=== PATIENT | female | born 1965 | race Caucasian/White ===

== ENCOUNTER 2022-12-26 20:26 | Outpatient (REF) | payer BC, SELFPAY ==
[2022-12-31 07:08] LABS: Age Gdln ACOG Testing Note (.); HPV Aptima Negative (Negative); IGP, Aptima HPV, rfx 16/18,45 Note (.)
== END 2022-12-26 20:27 | disposition home or self-care (01) ==
LOC: LAB 20:26
PROVIDERS: PCP Family Medicine; Visit Provider Obstetrics & Gynecology
DX: Z12.4 Encounter for screening for malignant neoplasm of cervix (principal); Z11.51 Encounter for screening for human papillomavirus (HPV)
CPT/HCPCS: 87624; G0145

== ENCOUNTER 2023-10-22 12:49 | Outpatient (OUT) | payer BC, SELFPAY ==
--- NOTE | 2023-10-22 12:55 | MM_ITS ---
Patient Name: ESTELA ORTEGA MR#: [id number] : 1965 Exam Date: 10/22/2023 Ordering Doctor: DR Manuel Orellana . RADIOLOGY REPORT PROCEDURE: MM TOMOSYNTHESIS SCREENING BI COMPARISON: MG MAMM SCREEN 3D NONA CAD, 07/13/2022. MG MAMM SCREEN 3D NONA CAD, 06/27/2021. INDICATIONS: Screening Calculator Name NCI Breast Cancer Risk Assessment Tool 5 Year Breast Cancer Risk 0.90% Lifetime Breast Cancer Risk 5.70% Personal Breast Cancer No Personal Ovarian Cancer No Treatments None Family Cancers Grandmother-maternal with breast cancer at age 50. LOCATION: [facility] BREAST COMPOSITION: There are scattered areas of fibroglandular density. FINDINGS: DIAGNOSTIC CATEGORY 1--NEGATIVE. NO CHANGE FROM COMPARISON ASSESSMENT. Scattered benign-appearing calcifications are present. Scattered benign-appearing lymph nodes are present. RIGHT BREAST: No significant suspicious finding. LEFT BREAST: No significant suspicious finding. RECOMMENDATIONS: ROUTINE MAMMOGRAM AND CLINICAL EVALUATION IN 12 MONTHS. PLEASE NOTE: A NORMAL MAMMOGRAM DOES NOT EXCLUDE THE POSSIBILITY OF BREAST CANCER. A CLINICALLY SUSPICIOUS PALPABLE LUMP SHOULD BE BIOPSIED. Dictated by: Ken Gonzales MD on 10/22/2023 at 14:06 Approved by: Ken Gonzales MD on 10/22/2023 at 14:08
== END 2023-10-22 12:50 | disposition home or self-care (01) ==
LOC: MAMMO 12:49
PROVIDERS: PCP Family Medicine; Visit Provider Obstetrics & Gynecology
DX: Z12.31 Encounter for screening mammogram for malignant neoplasm of breast (principal); Z80.3 Family history of malignant neoplasm of breast
CPT/HCPCS: 77063; 77067

== ENCOUNTER 2024-01-14 20:42 | Outpatient (REF) | payer BC, SELFPAY | END 2024-01-14 20:43 | disposition home or self-care (01) | LOC: LAB 20:42 | PROVIDERS: PCP Family Medicine; Visit Provider Obstetrics & Gynecology | DX: Z01.419 Encounter for gynecological examination (general) (routine) without abnormal findings (principal) | CPT/HCPCS: 87624; 88175 ==

== ENCOUNTER 2024-11-12 10:00 | Outpatient (OUT) | payer BC, SELFPAY ==
--- OUTSIDE RECORDS SUMMARY | 2024-11-12 10:02 | XMS_ITS | Encounter Summary ---
Author Organization [facility] tem Address [facility] [id number] [address] [place] [address] Care Team Providers Care Family Court Counsellor Name Role Phone James Schultz MD Primary Care Provider [phone] Encounter Details Date Type Department Care Team (Late st Contact Info) Description 05/04/2021 Orders Only [facility] Family Medicine [address] [place] [phone] Heide Orozco LPN Routine general medical examination at a health care facility Social History Tobacco Use Types Packs/Day Years Used Date Smoking Tobacco: Never Smokeless Tobacco: Never Alcohol Use Standard Drinks/Week Comments Yes 0 (1 standard drink = 0.6 oz pur e alcohol) occasional AUDIT-C Answer Date Recorded Frequency of Alcohol Consumption Monthly or less 04/16/2018 Average Number of Drinks 1 or 2 018 Frequency of Binge Drinking Never 11/2017 PHQ-2 Answer Date Recorded Total Score 0 03/25/2021 Childcare Answer Date Recorded Childcare Unknown 11/13/2018 Employment Answer Date Recorded Employment Unknown 11/13/2018 Purpose - Life Answer Date Recorded Purpose and direction in life Unknown Comments No Sex and Gender Information Value Date Recorded Sex Assigned at Female 04/09/2024 5:29 PM EDT Legal Sex Female 12:02 PM EDT Gender Identity Female 04/09/2024 5:29 PM EDT Sexual Orientation Straight 04/09/2024 5: 29 PM EDT documented as of this encounter Plan of Treatment Upcoming Encounters Date Type Department Care Team (Late st Contact Info) Description 12/09/2024 9:45 AM EDT Procedure visit [facility] - Pre Admit [address] [place] [phone] 12/30/2024 2:30 PM EDT Hospital Encounter [facility] - Surgery [address] [place] [phone] Blas Azevedo Jr., DO [address] [place] [address] 12/30/2024 2:30 PM EDT - 12/30/2024 3:30 PM EDT Surgery [facility] - Surgery [address] [place] [phone] Blas Azevedo Jr., DO [address] [place] [address] RELEASE TRIGGER FINGER [[id number] (CPT )] 03/25/2025 10:00 AM EDT Office Visit [facility] Family Medicine [address] [place] [phone] James Schultz MD [address] [place] [phone] Scheduled Procedures Name Priority Associated Diagnoses Date/Ti me RELEASE TRIGGER FINGER left trigger thumb 12/30/2024 2:30 PM EDT documented as of this encounter Procedures Procedure Name Priority Date/Time Associated Diagnosis Comments THYROID PROFILE INCLUDES TSH FT4 Routine 04/29/2021 Routine general medical examination at a health care facility CBC WITH AUTO DIFFERENTIAL Routine 04/29/2021 Routine general medical examination at a health care facility COMPREHENSIVE METABOLIC PANEL Routine 04/29/2021 Routine general medical examination at a health care facility documented in this encounter Results * CBC auto differential (04/29/2021) 04/29/2021 us Ken Rod MD LAB BLOOD ORDERABLES Final R esult [facility] * Comprehensive metabolic panel (04/29/2021) 04/29/2021 Ken Rod MD LAB BLOOD ORDERABLES Final R esult Performing Organization Address [facility] Co de Phone Number SUN[facility] * Thyroid profile includes TSH FT4 (04/29/2021) 04/29/2021 Ken Rod MD LAB BLOOD ORDERABLES Final R esult Performing Organization Address [facility] de Phone Number [facility] documented in this encounter Visit Diagnoses Diagnosis Routine general medical examination at a health care facility documented in this encounter Additional Health Concerns Assessment Noted Time PHQ-9 Depression Total Score: 0 03/25/20 21 3:00 PM EDT A Body Mass Index follow-up plan has been documented for the patient 05/20/2020 4:36 PM EST documented as of this encounter Care Teams Family Court Counsellor Relationship Specialty Start Date End Date James Schultz MD [address] [place] [address] PCP - General Internal Medicine 09/23/24 documented as of this encounter
--- OUTSIDE RECORDS SUMMARY | 2024-11-12 10:02 | XMS_ITS | Encounter Summary ---
Author Organization [facility] s tem Address [facility] [id number] [address] [place] [address] Care Team Providers Care Cell Lead Name Role Phone James Schultz MD Primary Care Provider [phone] Encounter Details Date Type Department Care Team (Late st Contact Info) Description 06/02/2020 Orders Only [facility] [address] [place] [phone] Heide Orozco LPN Routine general medical examination at a health care facility; Acquired hypothyroidism Social History Tobacco Use Types Packs/Day Years Used Date Smoking Tobacco: Never Smokeless Tobacco: Never Alcohol Use Standard Drinks/Week Comments Yes 0 (1 standard drink = 0.6 oz pur e alcohol) occasional AUDIT-C Answer Date Recorded Frequency of Alcohol Consumption Monthly or less 04/16/2018 Average Number of Drinks 1 or 2 018 Frequency of Binge Drinking Never 11/2017 PHQ-2 Answer Date Recorded PHQ-2 Score 0 06/10/2018 Childcare Answer Date Recorded Childcare Unknown 11/13/2018 Employment Answer Date Recorded Employment Unknown 11/13/2018 Comments No Sex and Gender Information Value Date Recorded Sex Assigned at Female 04/09/2024 5:29 PM EDT Legal Sex Female 12:02 PM EDT Gender Identity Female 04/09/2024 5:29 PM EDT Sexual Orientation Straight 04/09/2024 5: 29 PM EDT COVID-19 Exposure Response Date Recorded In the last month, have you been in contact with someone who was confirmed or suspected to have Coronavirus / COVID-19? No / Unsure 06/02/2020 1:43 PM EST documented as of this encounter Plan of Treatment Upcoming Encounters Date Type Department Care Team (Late st Contact Info) Description 12/09/2024 9:45 AM EDT Procedure visit [facility] - Pre Admit [address] [place] [address] 12/30/2024 2:30 PM EDT Hospital Encounter [facility] - Surgery [address] [place] [address] Blas Azevedo Jr., DO [address] [place] [address] 12/30/2024 2:30 PM EDT - 12/30/2024 3:30 PM EDT Surgery [facility] - Surgery [address] [place] [address] Blas Azevedo Jr., DO [address] [facility] [address] [place] [address] RELEASE TRIGGER FINGER [[id number] (CPT )] 03/25/2025 10:00 AM EDT Office Visit [facility] Family Medicine [address] [place] [phone] James Schultz MD [address] [place] [address] Scheduled Procedures Name Priority Associated Diagnoses Date/Ti me RELEASE TRIGGER FINGER left trigger thumb 12/30/2024 2:30 PM EDT documented as of this encounter Procedures Procedure Name Priority Date/Time Associated Diagnosis Comments THYROID PROFILE INCLUDES TSH FT4 Routine 05/22/2020 Acquired hypothyroidism CBC WITH AUTO DIFFERENTIAL Routine 05/22/2020 Routine general medical examination at a health care facility LIPID PROFILE Routine 05/22/2020 Routine general medical examination at a health care facility COMPREHENSIVE METABOLIC PANEL Routine 05/22/2020 Routine general medical examination at a health care facility documented in this encounter Results * Thyroid profile includes TSH FT4 (05/22/2020) 05/22/2020 Ken Rod MD LAB BLOOD ORDERABLES Final R esult Performing Organization Address [facility] de Phone Number SUNQUEST * CBC auto differential (05/22/2020) 05/22/2020 Ken Rod MD LAB BLOOD ORDERABLES Final R esult Performing Organization Address [facility] de Phone Number SUNQUEST * Comprehensive metabolic panel (05/22/2020) 05/22/2020 Ken Rod MD LAB BLOOD ORDERABLES Final R esult Performing Organization Address [facility] de Phone Number SUNQUEST * (ABNORMAL) Lipid profile (05/22/2020) External Cholesterol 249(A) <=200 [facility]QUEST External Cholesterol:Hdl 5.1 4.4 - 7.1 SUNQUEST External Hdl Cholesterol 49 <40 SUNQUEST External Ldl (Calc) 168.6(A) <=100 SUNQUEST External Triglycerides 157(A) <=150 SUNQUEST External Very Low Lipoprotein 31.4 SUNQUEST 05/22/2020 Ken Rod MD LAB BLOOD ORDERABLES Final R esult Performing Organization Address [facility] de Phone Number SUNQUEST documented in this encounter Visit Diagnoses Diagnosis Routine general medical examination at a health care facility Acquired hypothyroidism Unspecified hypothyroidism documented in this encounter Additional Health Concerns Assessment Noted Time PHQ-9 Depression Total Score: 0 05/20/20 20 4:00 PM EST A Body Mass Index follow-up plan has been documented for the patient 05/20/2020 4:36 PM EST documented as of this encounter Care Teams Cell Lead Relationship Specialty Start Date End Date James Schultz MD [address] [place] [address] PCP - General Internal Medicine 09/23/24 documented as of this encounter
--- OUTSIDE RECORDS SUMMARY | 2024-11-12 10:02 | XMS_ITS | Encounter Summary ---
Author Organization [facility] Address [facility] [id number] [address] [place] [address] Care Team Providers Care Plant Operations Engineer Name Role Phone James Schultz MD Primary Care Provider [phone] Reason for Visit * Reason Onset Date Comments Med Refill 04/30/2020 Encounter Details Date Type Department Care Team (Late st Contact Info) Description 04/30/2020 Refill [facility] [address] [place] [phone] Heide Orozco LPN Social History Tobacco Use Types Packs/Day Years [...] PM EDT documented as of this encounter Miscellaneous Notes * Telephone Encounter - Heide Orozco LPN - 04/30/2020 8:57 AM EST Requesting refill of Butalbital to [place] Orozco LPN 04/30/20 0858 documented in this encounter Plan of Treatment Upcoming Encounters Date Type Department Care Team (Late st Contact Info) Description 12/09/2024 9:45 AM EDT Procedure visit [facility] - Pre Admit [address] [place] [address] 12/30/2024 2:30 PM EDT Hospital Encounter [facility] - Surgery [address] [place] [address] Blas Azevedo Jr., DO [address] [place] [address] 12/30/2024 2:30 PM EDT - 12/30/2024 3:30 PM EDT Surgery [facility] - Surgery [address] [place] [address] Blas Azevedo Jr., DO [address] [place] [address] RELEASE TRIGGER FINGER [[id number] (CPT )] 03/25/2025 10:00 AM EDT Office Visit [facility] Family Medicine [address] [place] [phone] James Schultz MD [address] [place] [address] [phone] Scheduled Procedures Name Priority Associated Diagnoses Date/Ti me RELEASE TRIGGER FINGER left trigger thumb 12/30/2024 2:30 PM EDT documented as of this encounter Visit Diagnoses Not on filedocumented in this encounter Additional Health Concerns Assessment Noted Time PHQ-9 Depression Total Score: 0 11/24/19 1:00 PM EDT A Body Mass Index follow-up plan has been documented for the patient 05/14/2018 5:02 PM EST documented as of this encounter Care Teams Plant Operations Engineer Relationship Specialty Start Date End Date James Schultz MD [address] [place] [address] PCP - General Internal Medicine 09/23/24 documented as of this encounter
--- OUTSIDE RECORDS SUMMARY | 2024-11-12 10:02 | XMS_ITS | Encounter Summary ---
Author Organization [facility] Address [address] [facility] [place] [address] Care Team Providers Care Iron Plastic Bullet Maker Name Role Phone Andressa Alanis NP Unavailable [phone] Ken Rod MD Primary Care Provider [phone] Encounter Details Date Type Department Care Team (Late st Contact Info) Description 03/13/2024 External Result Encounter [facility] [address] [facility] [address] [place] [address] Wilfred Desouza DO [address] [place] [address] Social History Tobacco Use Types Packs/Day Years Used Date Smoking Tobacco: Never Smokeless Tobacco: Never Alcohol Use Standard Drinks/Week Comments Yes 0 (1 standard drink = 0.6 oz pure alcohol) Occasional Alcohol use / Caffeine: none Comments No Sex and Gender Information Value Date Recorded Sex Assigned at Not on file Legal Sex Female 7:32 PM EDT Gender Identity Not on file Sexual Orientation Not on file documented as of this encounter Plan of Treatment Upcoming Encounters Date Type Department Care Team (Late st Contact Info) Description 12/15/2024 10:30 AM EDT Office Visit [facility] [address] [place] [address] Mikel Jasso, COMPUTER PUBLISHER [address] [place], [place] [phone] 01/19/2025 2:00 PM EDT Office Visit [facility] [address] [place] [address] [place] [address] Manuel Orellana, DO [address] [place] [address] [place] [address] 02/18/2026 10:45 AM EDT Office Visit [facility] [address] [place] [phone] Mikel Jasso, COMPUTER PUBLISHER [address] [place], [place] [phone] documented as of this encounter Procedures Procedure Name Priority Date/Time Associated Diagnosis Comments URINE NURS ([facility]) Routine 04/09/2024 8:52 AM EDT XR CHEST 2 VIEWS 03/13/2024 3:11 PM EDT CBC WITH AUTO DIFFERENTIAL Routine 03/13/2024 2:31 PM EDT BASIC METABOLIC PANEL Routine 03/13/2024 2:31 PM EDT documented in this encounter Results * URINE NURS ([facility]) (04/09/2024 8:52 AM EDT) URINE NURSING Negative Negative [facility] Comment:PERFORMED AT [address] [place] [address] 04/09/2024 8:52 AM EDT 04/09/2024 3:58 PM EDT Wilfred Desouza DO LAB BLOOD ORDERABLES Final Result [facility] * XR chest 2 views (03/13/2024 3:11 PM EDT) Anatomical Region Laterality Modality Chest Radiographic Radha ging 03/13/2024 3:11 PM EDT Narrative 03/13/2024 3:10 PM EDT THIS EXAM WAS PERFORMED AT [facility] Clinical history: Preoperative evaluation the surgery. History of asthma. Hypertension. Comparisons: None Findings: 2 views of the chest obtained. Heart size and pulmonary vasculature appear within normal limits. Lungs appear clear. There is no pleural effusion nor pneumothorax. IMPRESSION: No evidence for acute cardiopulmonary disease. Finalized by Geovani Dickens MD on 03/13/2024 3:10 PM Procedure Note Radiology, Radiologist, - 03/13/2024 THIS EXAM WAS PERFORMED AT [facility] Clinical history: Preoperative evaluation the surgery. History of asthma.Hypertension. Comparisons: None Findings: 2 views of the chest obtained. Heart size and pulmonaryvasculature appear within normal limits. Lungs appear clear. There is nopleural effusion nor pneumothorax. IMPRESSION: No evidence for acute cardiopulmonary disease. Finalized by Geovani Dickens MD on 03/13/2024 3:10 PM Wilfred Desouza DO IMG XR PROCEDURES Final Re sult * Basic metabolic panel (03/13/2024 2:31 PM EDT) [facility] Sodium 141 134 - 146 mmol/L [facility] Potassium, Bld 3.9 3.5 - 5.0 mmol/L [facility] Chloride 104 98 - 109 mmol/L [facility] Carbon Dioxide 30 22 - 32 mmol/L [facility] Anion Gap 7 5 - 15 mmol/L [facility] BUN 9 5 - 23 mg/dL [facility] Creatinine 0.97 0.40 - 1.00 mg/dL [facility] Comment:METHOD TRACEABLE TO IDMS STANDARD Glucose 99 65 - 99 mg/dL [facility] Calcium 9.6 8.5 - 10.5 mg/dL [facility] EGFR 68 >59 ml/min/1.7 3sq.m [facility] Comment: Reported eGFR is based on the CKD-EPI 2020 equation that does not use a race coefficient. PERFORMED AT [facility] [address],[place] [address] 03/13/2024 2:31 PM EDT 03/13/2024 2:32 PM EDT Wilfred Desouza DO LAB BLOOD ORDERABLES Final Result [facility] * CBC auto differential (03/13/2024 2:31 PM EDT) WHITE BLOOD CELL COUNT, WBC 9.4 4.0 - 11.0 X10E9/L [facility] RED BLOOD CELL COUNT, RBC 4.53 3.80 - 5.20 X10E12/L [facility] HEMOGLOBIN 14.6 11.7 - 15.5 g/dL [facility] HEMATOCRIT 41.7 35 - 47 % [facility] MEAN CELL VOLUME, MCV 92 80 - 100 fL [facility] MEAN CELL HEMOGLOBIN, MCH 32.2 27 - 34 pg [facility] MEAN CELL HEMOGLOGIN CONCENTRATION, MCHC 35.0 32 - 36 g/dL [facility] RED CELL DISTRIBUTION WIDTH, RDW 13.6 11.5 - 15.0 % [facility] PLATELET COUNT 206 150 - 450 X10E9/L [facility] MEAN PLATELET VOLUME, MPV 10.0 7 - 12 fL [facility] % NEUTROPHILS 68.5 % [facility] % LYMPHOCYTES 21.1 % [facility] % MONOCYTES 7.7 % [facility] % EOSINOPHILS 2.4 % [facility] % BASOPHILS 0.3 % [facility] ABSOLUTE NEUTROPHIL 6.4 1.5 - 6.6 X10E9/L [facility] ABSOLUTE LYMPHOCYTE 2.0 1.0 - 3.5 X10E9/L [facility] ABSOLUTE MONOCYTE 0.7 0 - 0.9 X10E9/L [facility] ABSOLUTE EOSINOPHIL 0.2 0.0 - 0.4 X10E9/L [facility] ABSOLUTE BASOPHIL 0.0 0.0 - 0.2 X10E9/L [facility] Comment:PERFORMED AT [facility] [address],[place] [address] 03/13/2024 2:31 PM EDT 03/13/2024 2:32 PM EDT Wilfred Desouza DO LAB BLOOD ORDERABLES Final Result Performing Organization Address City/[facility]/ZIP Co de Phone Number [facility] documented in this encounter Visit Diagnoses Not on filedocumented in this encounter Care Teams Iron Plastic Bullet Maker Relationship Specialty Start Date End Date Andressa Alanis NP PCP - [place] [employer] 06/11/2206/10 Ken Rod MD PCP - General Family Medicine 12/26/22 documented as of this encounter
--- OUTSIDE RECORDS SUMMARY | 2024-11-12 10:02 | XMS_ITS | Encounter Summary ---
Author Organization [facility] [employer] [facility] tem Address [facility] [id number] [address] [place] [address] Care Team Providers Care Front Office Associate Name Role Phone James Schultz MD Primary Care Provider [phone] Encounter Details Date Type Department Care Team (Late st Contact Info) Description 10/23/2023 Orders Only [facility] [address] [place] [phone] External, Scanning Provider Social History Tobacco Use Types Packs/Day Years Used Date Smoking Tobacco: Never Smokeless Tobacco: Never Alcohol Use Standard Drinks/Week Comments Not Currently 0 (1 standard drink = 0.6 oz pur e alcohol) occasional AUDIT-C Answer Date Recorded Frequency of Alcohol Consumption Monthly or less 04/16/2018 Average Number of Drinks 1 or 2 018 Frequency of Binge Drinking Never 11/2017 PHQ-2 Answer Date Recorded Total Score 14 09/07/2023 Childcare Answer Date Recorded Childcare Unknown 11/13/2018 Employment Answer Date Recorded Employment Unknown 11/13/2018 Hunger Screening Answer Date Recorded Within the past 12 months we worried whether our food would run out before we got money to buy more. Never True 09/07/2023 Within the past 12 months th e food we bought just didn't last and we didn't have money to get more. Never True 09/07/2023 Purpose - Life Answer Date Recorded Purpose [...] Description 12/09/2024 9:45 AM EDT Procedure visit [facility] - Pre Admit [address] [place] [address] 12/30/2024 2:30 PM EDT Hospital Encounter [facility] - Surgery [address] [place] [address] Blas Azevedo Jr., DO [address] [place] [address] 12/30/2024 2:30 PM EDT - 12/30/2024 3:30 PM EDT Surgery [facility] - Surgery [address] [place] [address] Blas Azevedo Jr., DO [address] [place] [address] RELEASE TRIGGER FINGER [[id number] (CPT )] 03/25/2025 10:00 AM EDT Office Visit [facility] [address] [place] [phone] James Schultz MD [address] [place] [phone] Scheduled Procedures Name Priority Associated Diagnoses Date/Ti me RELEASE TRIGGER FINGER left trigger thumb 12/30/2024 2:30 PM EDT documented as of this encounter Procedures Procedure Name Priority Date/Time Associated Diagnosis Comments HM MAMMOGRAPHY Routine 10/23/2023 10:19 AM EDT documented in this encounter Results * HM MAMMOGRAPHY (10/23/2023 10:19 AM EDT) Anatomical Region Laterality Modality Other us Scanning Provider External HEALTH MAINTENANCE Fi nal Result documented in this encounter Visit Diagnoses Not on filedocumented in this encounter Additional Health Concerns Assessment Noted Time PHQ-9 Depression Total Score: 14 024 7:00 AM EDT A Body Mass Index follow-up plan has been documented for the patient 09/23/2021 3:28 PM EDT documented as of this encounter Care Teams Front Office Associate Relationship Specialty Start Date End Date James Schultz MD [address] [place] [address] PCP - General Internal Medicine 09/23/24 documented as of this encounter
--- OUTSIDE RECORDS SUMMARY | 2024-11-12 10:02 | XMS_ITS | Encounter Summary ---
Author Organization [facility] [employer] [facility] tem Address [id number] [address] [place] [address] Care Team Providers Care Ab Initio Etl Developer Name Role Phone James Schultz MD Primary Care Provider [phone] Encounter Details Date Type Department Care Team (Late st Contact Info) Description 05/08/2022 Orders Only [facility] Family Medicine [address] [place] [phone] Heide Orozco LPN Mixed hyperlipidemia Social History Tobacco Use Types Packs/Day Years [...] 11/2017 PHQ-2 Answer Date Recorded Total Score 10 03/10/2022 Childcare Answer Date Recorded Childcare Unknown 11/13/2018 [...] Description 12/09/2024 9:45 AM EDT Procedure visit [facility] - Pre Admit [address] [place] [address] 12/30/2024 2:30 PM EDT Hospital Encounter [facility] - Surgery [address] [place] [address] Blas Azevedo Jr., DO [address] [place] [address] 12/30/2024 2:30 PM EDT - 12/30/2024 3:30 PM EDT Surgery [facility] - Surgery [address] [facility] [place] [address] Blas Azevedo Jr., DO [address] [facility] [address] [place] [address] RELEASE TRIGGER FINGER [[id number] (CPT )] 03/25/2025 10:00 AM EDT Office Visit [facility] [address] [place] [phone] James Schultz MD [address] [place] [address] [phone] Scheduled Procedures Name Priority Associated Diagnoses Date/Ti me RELEASE TRIGGER FINGER left trigger thumb 12/30/2024 2:30 PM EDT documented as of this encounter Procedures Procedure Name Priority Date/Time Associated Diagnosis Comments GGT Routine 05/05/2022 Mixed hyperlipidemia ALT Routine 05/05/2022 Mixed hyperlipidemia AST Routine 05/05/2022 Mixed hyperlipidemia LIPID PROFILE Routine 05/05/2022 Mixed hyperlipidemia documented in this encounter Results * ALT (05/05/2022) 05/05/2022 us Ken Rod MD LAB BLOOD ORDERABLES Final R esult SUNQUEST * AST (05/05/2022) 05/05/2022 Ken Rod MD LAB BLOOD ORDERABLES Final R esult Performing Organization Address [facility] de Phone Number SUNQUEST * GGT (05/05/2022) 05/05/2022 Ken Rod MD LAB BLOOD ORDERABLES Final R esult Performing Organization Address [facility] de Phone Number SUNQUEST * (ABNORMAL) Lipid profile (05/05/2022) External Cholesterol 181 <=200 SUNQUEST External Cholesterol:Hdl 3.4 3.3 - 4.4 SUNQUEST External Hdl Cholesterol 54 40 - 60 SUNQUEST External Ldl (Calc) 101.8(A) <=100 SUNQUEST External Triglycerides 126 <=150 SUNQUEST 05/05/2022 Ken Rod MD LAB BLOOD ORDERABLES Final R esult Performing Organization Address [facility] de Phone Number SUNQUEST documented in this encounter Visit Diagnoses Diagnosis Mixed hyperlipidemia documented in this encounter Additional Health Concerns Assessment Noted Time PHQ-9 Depression Total Score: 10 03/10/2 022 1:00 PM EDT A Body Mass Index follow-up plan has been documented for the patient 09/23/2021 3:28 PM EDT documented as of this encounter Care Teams Ab Initio Etl Developer Relationship Specialty Start Date End Date James Schultz MD [address] [place] [address] PCP - General Internal Medicine 09/23/24 documented as of this encounter
--- OUTSIDE RECORDS SUMMARY | 2024-11-12 10:02 | XMS_ITS | Encounter Summary ---
Author Organization [facility] Address [id number] [address] [place] [address] Care Team Providers Care Rope Twisting Machine Operator Name Role Phone James Schultz MD Primary Care Provider [phone] Encounter Details Date Type Department Care Team (Late st Contact Info) Description 03/20/2022 Telephone [facility] [address] [place] [address] Ken Rod MD [address]. Provider retired 09/09/24 [place], [place] [phone] Social History Tobacco Use Types Packs/Day Years [...] have Coronavirus / COVID-19? No / Unsure 03/10/2022 12:56 PM EDT documented as of this encounter Miscellaneous Notes * Telephone Encounter - Ken Rod MD - 03/20/2022 12:55 PM EDT ----- Message from Heide Orozco LPN sent at 03/20/2022 12:48 PM EDT ----- Patient notified of test results and verbalizes understanding. Patient is agreeable to starting Lipitor, please send 30 day supply to [facility] and please print lab orders for repeat labs in 6 weeks. * Telephone Encounter - Ken Rod MD - 03/20/2022 12:55 PM EDT rx sent and labs ordered please do fasting in 6 weeks documented in this encounter Plan of Treatment Upcoming Encounters Date Type Department Care Team (Late st Contact Info) Description 12/09/2024 9:45 AM EDT Procedure visit [facility] - Pre Admit [address] [place] [address] 12/30/2024 2:30 PM EDT Hospital Encounter [facility] - Surgery [address] [place] [address] Blas Azevedo Jr., DO [address] [place] [address] 12/30/2024 2:30 PM EDT - 12/30/2024 3:30 PM EDT Surgery [facility] - Surgery [address] [place] [address] Blas Azevedo Jr., DO [address] [place] [address] RELEASE TRIGGER FINGER [[id number] (CPT )] 03/25/2025 10:00 AM EDT Office Visit [facility] [address] [place] [phone] James Schultz MD [address] [place] [address] Scheduled Procedures Name Priority Associated Diagnoses Date/Ti me RELEASE TRIGGER FINGER left trigger thumb 12/30/2024 2:30 PM EDT documented as of this encounter Visit Diagnoses Not on filedocumented in this encounter Additional Health Concerns Assessment Noted Time PHQ-9 Depression Total Score: 10 2 022 1:00 PM EDT A Body Mass Index follow-up plan has been documented for the patient 09/23/2021 3:28 PM EDT documented as of this encounter Care Teams Rope Twisting Machine Operator Relationship Specialty Start Date End Date James Schultz MD [address] [place] [address] PCP - General Internal Medicine 09/23/24 documented as of this encounter
--- OUTSIDE RECORDS SUMMARY | 2024-11-12 10:02 | XMS_ITS | Encounter Summary ---
Author Organization [facility] Address [address] [facility] [place] [address] Care Team Providers Care Supervisor Finishing Department Name Role Phone Andressa Alanis NP Unavailable [phone] Olya Dudley MD Primary Care Provider [phone] Encounter Details Date Type Department Care Team (Late st Contact Info) Description 10/22/2023 Clinisync Result Encounter [facility] Unsolicited Manuel Orellana DO [address] [place] [address] Social History Tobacco Use Types Packs/Day Years Used Date Smoking Tobacco: Never Smokeless Tobacco: Never Alcohol Use Standard Drinks/Week Comments Not Currently 0 (1 standard drink = 0.6 oz pure alcohol) Occasional Alcohol use / Caffeine: none Comments Unknown Sex and Gender Information Value Date Recorded Sex Assigned at Not on file Legal Sex Female 7:32 PM EDT Gender Identity Not on file Sexual Orientation Not on file documented as of this encounter Plan of Treatment Upcoming Encounters Date Type Department Care Team (Late st Contact Info) Description 12/15/2024 10:30 AM EDT Office Visit [facility] [address] [place] [address] Mikel Jasso, ANIMAL HUSBANDRY WORKER [address] [place] [address] 01/19/2025 2:00 PM EDT Office Visit [facility] [address] [place] [address] Manuel Orellana DO [address] [place] [address] 02/18/2026 10:45 AM EDT Office Visit [facility] [address] [place] [address] Mikel Jasso, ANIMAL HUSBANDRY WORKER [address] [place] [address] documented as of this encounter Procedures Procedure Name Priority Date/Time Associated Diagnosis Comments MM TOMOSYNTHESIS SCREENING BI 10/22/2023 2:08 PM EDT documented in this encounter Results * MM TOMOSYNTHESIS SCREENING BI (10/22/2023 2:08 PM EDT) Anatomical Region Laterality Modality Other 10/22/2023 2:08 PM EDT Narrative 10/22/2023 2:09 PM EDT [place] [id number] Mammography Report Signed Patient: ESTELA MORELOS MR#: [id number] : 1965 Acct:[id number] Age/Sex: 58 / F ADM Date: 10/22/23 Loc: MAMMO Attending Dr: Manuel Orellana D.O. Ordering Physician: Manuel Orellana D.O. Results: Date of Service: 10/22/23 Follow Up: Procedure(s): MM tomosynthesis screening BI Accession Number(s): [id number] cc: OLYA DUDLEY ; Manuel Orellana D.O. Patient Name: ESTELA MORELOS MR#: [id number] : 1965 Exam Date: 10/22/2023 Ordering Doctor: DR Manuel Orellana . RADIOLOGY REPORT PROCEDURE: MM TOMOSYNTHESIS SCREENING BI COMPARISON: MG MAMM SCREEN 3D NONA CAD, 07/13/2022. MG MAMM SCREEN 3D NONA CAD, 06/27/2021. INDICATIONS: Screening Calculator Name NCI Breast Cancer Risk Assessment Tool 5 Year Breast Cancer Risk 0.90% Lifetime Breast Cancer Risk 5.70% Personal Breast Cancer No Personal Ovarian Cancer No Treatments None Family Cancers Grandmother-maternal with breast cancer at age 50. LOCATION: [facility] BREAST COMPOSITION: There are scattered areas of fibroglandular density. FINDINGS: DIAGNOSTIC CATEGORY 1--NEGATIVE. NO CHANGE FROM COMPARISON ASSESSMENT. Scattered benign-appearing calcifications are present. Scattered benign-appearing lymph nodes are present. RIGHT BREAST: No significant suspicious finding. LEFT BREAST: No significant suspicious finding. RECOMMENDATIONS: ROUTINE MAMMOGRAM AND CLINICAL EVALUATION IN 12 MONTHS. PLEASE NOTE: A NORMAL MAMMOGRAM DOES NOT EXCLUDE THE POSSIBILITY OF BREAST CANCER. A CLINICALLY SUSPICIOUS PALPABLE LUMP SHOULD BE BIOPSIED. Dictated by: Olya Gonzales MD on 10/22/2023 at 14:06 Approved by: Olya Gonzales MD on 10/22/2023 at 14:08 Dictated By: Olya Gonzales M.D. Signed By: 10/22/23 1409 DD/ 1408 TD/TT: Police Service Technician: Procedure Note Radiology, Radiologist, - 10/22/2023 [place] [address] Mammography Report Signed Patient: ESTELA MORELOS AMR#: [id number] : 1965Acct:[id number] Age/Sex: 58 / FADM Date: 10/22/23 Loc: MAMMO Attending Dr: Manuel Orellana D.O. Ordering Physician: Manuel Orellana D.O.Results: Date of Service: 10/22/23Follow Up: Procedure(s): MM tomosynthesis screening BI Accession Number(s): [id number] cc: OLYA DUDLEY ; Manuel Orellana D.O. Patient Name: ESTELA MORELOS MR#: [id number] : 1965 Exam Date: 10/22/2023 Ordering Doctor: DR Manuel Orellana . RADIOLOGY REPORT PROCEDURE: MM TOMOSYNTHESIS SCREENING BI COMPARISON: MG MAMM SCREEN 3D NONA CAD, 07/13/2022. MG MAMM SCREEN 3DBIL CAD, 06/27/2021. INDICATIONS: Screening Calculator Name NCI Breast Cancer Risk Assessment Tool 5 Year Breast Cancer Risk 0.90% Lifetime Breast Cancer Risk 5.70% Personal Breast Cancer No Personal Ovarian Cancer No Treatments None Family Cancers Grandmother-maternal with breast cancer at age 50. LOCATION: [facility] BREAST COMPOSITION: There are scattered areas of fibroglandulardensity. FINDINGS: DIAGNOSTIC CATEGORY 1--NEGATIVE. NO CHANGE FROM COMPARISON ASSESSMENT. Scattered benign-appearing calcifications are present. Scattered benign-appearing lymph nodes are present. RIGHT BREAST: No significant suspicious finding. LEFT BREAST: No significant suspicious finding. RECOMMENDATIONS: ROUTINE MAMMOGRAM AND CLINICAL EVALUATION IN 12 MONTHS. PLEASE NOTE: A NORMAL MAMMOGRAM DOES NOT EXCLUDE THE POSSIBILITY OFBREAST CANCER. A CLINICALLY SUSPICIOUS PALPABLE LUMP SHOULD BE BIOPSIED. Dictated by: Olya Gonzales MD on 10/22/2023 at 14:06 Approved by: Olya Gonzales MD on 10/22/2023 at 14:08 Dictated By: Olya Gonzales M.D. Signed By:10/22/23 1409 DD/ 1408 TD/TT: Police Service Technician: [facility] Reyna DO [facility] Final Result documented in this encounter Visit Diagnoses Not on filedocumented in this encounter Care Teams Supervisor Finishing Department Relationship Specialty Start Date End Date Andressa Alanis NP PCP - Lyn Commercial 06/11/2206/10 Olya Dudley MD PCP - General Family Medicine 12/26/22 documented as of this encounter
--- OUTSIDE RECORDS SUMMARY | 2024-11-12 10:02 | XMS_ITS | Clinical Summary ---
Author Organization [facility] Address [address] [place] [address] Care Team Providers Care Automotive Project Engineer Name Role Phone Olya Dudley MD Primary Care Provider [phone] Allergies No known active allergies Medications B Complex-Folic Acid (SUPER B COMPLEX MAXI PO) Active ferrous sulfate ER 142 mg ER tablet Take by mouth in the morning. Active buPROPion XL (Wellbutrin XL) 300 MG 24 hr tablet Take 1 tablet by mouth in the morning. 08/22/19 23 Active Synthroid 50 MCG tablet Take 1 tablet by mouth in the morning. 08/22/19 23 Active atorvastatin (Lipitor) 10 MG tablet Take 10 mg by mouth in the morning. 09/06/19 23 Active sertraline (Zoloft) 50 MG tablet 01/21/20 24 Active albuterol HFA 90 mcg/act inhaler every 4 (four) hours Active montelukast (Singulair) 10 MG tablet Take 1 tablet by mouth at bedtime 08/27/19 24 Active butalbital-sepideh taminophen-caf feine 50-325-40 MG tablet 08/14/19 24 Active calcium carbonate (Tums) 500 MG chewable tablet Chew 500 mg Daily Active Multiple Vitamin (multivitamin) capsule Take 1 capsule by mouth Daily Active cetirizine (ZyrTEC) 10 MG tablet Take 10 mg by mouth in the morning. Active amoxicillin (Amoxil) 500 MG tabletIndicati ons:S/P total knee arthroplasty, right 4 tabs PO once 30-60 mins before procedure with food 4 tablet 3 11/13/19 25 Active traMADol (Ultram) 50 MG tablet Take by mouth 025 Discontinued amoxicillin (Amoxil) 500 MG tabletIndicati ons:S/P total knee arthroplasty, right 4 tabs PO once 30-60 mins before procedure with food 4 tablet 3 08/05/19 25 025 Discontinued(Re order) Active Problems Problem Noted Date Diagnosed Date Primary osteoarthritis of right knee 04/13/2024 Acute postoperative pain of right knee Status post right knee replacement 04/13/2024 Difficulty walking 04/13/2024 Anemia 02/15/2024 Arthropathy 02/15/2024 Depression 02/15/2024 Primary osteoarthritis of left knee 02/15/2024 Acute asthma 11/12/2017 Essential hypertension, benign 05/29/2017 Acquired hypothyroidism 05/18/2017 Resolved Problems Problem Noted Date Diagnosed Date Resolved Date Obesity 02/15/2024 10/16/2024 Encounters Date Type Department Care Team Description 11/11/2024 Refill [facility] [address] [place] [phone] Mikel Jasso, ACCOUNTS RECEIVABLE BOOKKEEPER S/P total knee arthroplasty, right 10/17/2024 8:45 AM EDT Office Visit [facility] [address] [place] [address] Jr. Blas Azevedo, DO Trigger thumb of left hand (Primary Dx) 10/17/2024 Bamboo flowsheet [facility] [address] [place] [address] Jr. Blas Azevedo, 10/17/2024 Travel 10/16/2024 Travel 09/18/2024 10:50 AM EDT Ancillary Procedure [facility] [place] [address] 09/18/2024 10:45 AM EDT Office Visit [facility] [place] [address] Mikel Jasso, ACCOUNTS RECEIVABLE BOOKKEEPER S/P total knee arthroplasty, right; Primary osteoarthritis of right knee 09/18/2024 Bamboo flowsheet [facility] [place] [phone] Mikel Jasso, ACCOUNTS RECEIVABLE BOOKKEEPER 09/18/2024 Travel 09/17/2024 Travel 08/12/2024 Telephone [facility] [address] [place] [address] Wilfred Desouza, DO Work note from Last 3 Months Immunizations Immunization Administration Dates Next Due Moderna SARS-CoV-2 Vaccination 11/03/2020,2020 Pfizer Purple Cap SARS-CoV-2 Vaccination 021 Pneumococcal Polysaccharide PPSV23 02/25/2020 Tdap 01/17/2016 Family History Medical History Relation Name Comments Breast cancer Maternal Grandmother Lydia Marlow Cancer Maternal Grandmother Lydia Marlow Arthritis Mother COPD Mother Heart disease Mother Hypertension Mother Stroke Mother Heart disease Paternal Grandfather Heart disease Paternal Grandmother Hypertension Paternal Grandmother Breast cancer Sister 1 recently diagn osed Cancer Sister 2 Disha hilliard Relation Name Status Comments Father Maternal Grandmother Lydia Marlow Mother Alive Paternal Grandfather Paternal Grandmother Sister 1 Sister 2 Disha hilliard Social History Tobacco Use Types Packs/Day Years Used Date Smoking Tobacco: Never Smokeless Tobacco: Never Tobacco Cessation:Counseling Given: Not Answered Alcohol Use Standard Drinks/Week Comments Yes 0 (1 standard drink = 0.6 oz pure alcohol) Occasional Alcohol use / Caffeine: none Comments No Sex and Gender Information Value Date Recorded Sex Assigned at Not on file Legal Sex Female 7:32 PM EDT Gender Identity Not on file Sexual Orientation Not on file Last Filed Vital Signs Vital Sign Reading Time Taken Comments Blood Pressure 126/74 01/14/2024 3:14 PM EDT Pulse - - Temperature - - Respiratory Rate - - Oxygen Saturation - - Inhaled Oxygen Concentration - - Weight 97.4 kg (214 lb 12.8 oz) 03/13/2024 1:18 PM EDT Height 157.5 cm (5' 2 ) 03/13/2024 1:18 PM EDT Body Mass Index 39.29 03/13/2024 1:18 PM EDT Plan of Treatment Upcoming Encounters Date Type Department Care Team (Late st Contact Info) Description 12/15/2024 10:30 AM EDT Office Visit [facility] [address] [place] [address] Mikel Jasso, ACCOUNTS RECEIVABLE BOOKKEEPER [address] [place] [phone] 01/19/2025 2:00 PM EDT Office Visit [facility] [address] [place] [address] Manuel Orellana, DO [address] [facility] [place] [address] 02/18/2026 10:45 AM EDT Office Visit [facility] [address] [place] [phone] Mikel Jasso, ACCOUNTS RECEIVABLE BOOKKEEPER [address] [place] [address] Health Maintenance Due Date Last Done Comments CT Colonography 1965 FIT-DNA 1965 FIT 1965 FOBT 1965 Sigmoidoscopy 1965 Mammogram 10/21/2024 10/22/2023, 020 07/2022, 01/24/2016 Influenza Vaccine (Season Ended) 2025 Pap Smear 01/13/2027 01/14/2024, 12/26/2022 Colonoscopy 06/28/2027 06/28/2017 Colorectal Cancer Screening 06/28/2027 Cervical Cancer Screening 02/02/2028 HPV/Cotest 02/02/2028 02/01/2023 Procedures Procedure Name Priority Date/Time Associated Diagnosis Comments XR KNEE 1-2 VIEWS RIGHT Routine 09/18/2024 10:48 AM EDT Primary osteoarthritis of right knee PAP SMEAR Routine 01/14/2024 12:00 AM EDT MM TOMOSYNTHESIS SCREENING BI 10/22/2023 2:08 PM EDT THINPREP PAP AND HPV MRNA E6/E7 W/RFL HPV 16,18/45 Routine 02/01/2023 2:01 PM EDT Well woman exam with routine gynecological exam from Last 3 Months or Most Recently Relevant to Health Maintenance Results * XR knee 1 or 2 views right (09/18/2024 10:48 AM EDT) Anatomical Region Laterality Modality Lower Extremities, Knee Right Radiogra phic Imaging Narrative 09/18/2024 11:36 AM EDT Imaging Result: 09/18/2024: Standing AP and LAT of right knee showed surgical position and alignment of prosthetic components without evidence of loosening or wear to the femoral, tibial, or patellar components. The alignment appeared to be anatomic. There was no evidence of accelerated or asymmetric wear to the patellar button or tibial tray. There is calcification superior to the patella that could represent a calcific tendonitis of quadriceps tendon. There was no evidence of fracture and/or dislocation. Impression: Stable RT total knee replacement. Mikel Jasso PLANNER INTERN-CARE TEAM COORDINATOR SCHEDULER us Mikel Jasso ACCOUNTS RECEIVABLE BOOKKEEPER IMG XR PROCEDURES Final Result * Pap Smear (01/14/2024 12:00 AM EDT) Swab Cervical swab / Unknown us Manuel Orellana DO LAB CYTOLOGY ORDERABLES Final Re sult EXTERNAL LAB * MM TOMOSYNTHESIS SCREENING BI (10/22/2023 2:08 PM EDT) Anatomical Region Laterality Modality Other 10/22/2023 2:08 PM EDT Narrative 10/22/2023 2:09 [place] [address] Mammography Report Signed Patient: ESTELA MORELOS MR#: [id number] : 1965 Acct:[id number] Age/Sex: 58 / F ADM Date: 10/22/23 Loc: MAMMO Attending Dr: Manuel Orellana D.O. Ordering Physician: Manuel Orellana D.O. Results: Date of Service: 10/22/23 Follow Up: Procedure(s): MM tomosynthesis screening BI Accession Number(s): [id number] cc: OLYA DUDLEY ; Manuel Orellana D.O. Patient Name: ESTELA MORELOS MR#: [id number] : 1965 Exam Date: 10/22/2023 Ordering Doctor: [...] breast cancer at age 51. LOCATION: [facility] BREAST COMPOSITION: There are scattered areas of [...] Signed By: 10/22/23 1409 DD/ 1408 TD/TT: Contact Person: Procedure Note Radiology, Radiologist, - 10/22/2023 [place] [address] Mammography Report Signed Patient: ESTELA MORELOS AMR#: [id number] : 1965Acct:[id number] Age/Sex: 58 / FADM Date: 10/22/23 Loc: MAMMO Attending Dr: Manuel Orellana D.O. Ordering Physician: Manuel Orellana D.O.Results: Date of Service: 10/22/23Follow Up: Procedure(s): MM tomosynthesis screening BI Accession Number(s): [id number] cc: OLYA DUDLEY ; Manuel Orellana D.O. Patient Name: ESTELA MORELOS MR#: [id number] : 1965 Exam Date: 10/22/2023 Ordering Doctor: [...] breast cancer at age 51. LOCATION: [facility] BREAST COMPOSITION: There are scattered areas of [...] M.D. Signed By:10/22/23 1409 DD/ 1408 TD/TT: Contact Person: Manuel Orellana DO [facility] Final Result * THINPREP PAP AND HPV MRNA E6/E7 W/RFL HPV 16,18/45 (02/01/2023 2:01 PM EDT) us Manuel Reyna DO LAB BLOOD ORDERABLES Final Resul t EXTERNAL LAB from Last 3 Months or Most Recently Relevant to Health Maintenance Insurance [employer]BS Care Teams Automotive Project Engineer Relationship Specialty Start Date End Date Olya Dudley MD PCP - General Family Medicine 12/26/22
--- OUTSIDE RECORDS SUMMARY | 2024-11-12 10:02 | XMS_ITS | Encounter Summary ---
Author Organization [facility] tem Address [facility] [place]-[id number] [address] [place] [address] Care Team Providers Care Information Resources Manager Name Role Phone James Schultz MD Primary Care Provider [phone] Encounter Details Date Type Department Care Team (Late st Contact Info) Description 09/22/2020 [facility] [address] [place] [address] Ellen Kvoacs, MEDIA AID Social History Tobacco Use Types Packs/Day Years [...] PHQ-2 Answer Date Recorded Total Score 0 09/21/2020 Childcare Answer Date Recorded Childcare Unknown 11/13/2018 [...] have Coronavirus / COVID-19? No / Unsure 09/21/2020 8:47 AM EDT documented as of this encounter Miscellaneous Notes * Telephone Encounter - Ellen Kovacs CMA - 09/22/2020 3:46 PM EDT Patient called and said that she is having issues sleeping again and is wondering if she could get back on Xanax. RA [place] * Telephone Encounter - Ken Rod MD - 09/22/2020 3:46 PM EDT We recommend melatonin 10mg qhs If we restart xanax , pt will need to sign contract and come in q 3months, she was just here, so will need appt in 3 months, is pt agreeable? * Telephone Encounter - Ellen Kovacs CMA - 09/22/2020 3:46 PM EDT Left message for patient to call back documented in this encounter Plan of Treatment Upcoming Encounters Date Type Department Care Team (Late st Contact Info) Description 12/09/2024 9:45 AM EDT Procedure visit [facility] - Pre Admit [address] [facility] [place] [address] 12/30/2024 2:30 PM EDT Hospital Encounter [facility] - Surgery [address] [facility] [place] [address] Blas Azevedo Jr., DO [address] [facility] [place] [address] 12/30/2024 2:30 PM EDT - 12/30/2024 3:30 PM EDT Surgery [facility] - Surgery [address] [place] [address] Blas Azevedo Jr., DO [address] [place] [address] RELEASE TRIGGER FINGER [[id number] (CPT )] 03/25/2025 10:00 AM EDT Office Visit [facility] [address] [place] [phone] James Schultz MD [address] [place] [address] Scheduled Procedures Name Priority Associated Diagnoses Date/Ti me RELEASE TRIGGER FINGER left trigger thumb 12/30/2024 2:30 PM EDT documented as of this encounter Visit Diagnoses Not on filedocumented in this encounter Additional Health Concerns Assessment Noted Time PHQ-9 Depression Total Score: 0 09/22/19 21 8:00 AM EDT A Body Mass Index follow-up plan has been documented for the patient 05/20/2020 4:36 PM EST documented as of this encounter Care Teams Information Resources Manager Relationship Specialty Start Date End Date James Schultz MD [address] [place] [phone] PCP - General Internal Medicine 09/23/24 documented as of this encounter
--- OUTSIDE RECORDS SUMMARY | 2024-11-12 10:02 | XMS_ITS | Encounter Summary ---
Author Organization [facility] Address [id number] [address] [place] [address] Care Team Providers Care Dining Car Steward Name Role Phone James Schultz MD Primary Care Provider [phone] Reason for Referral * Consultation (Routine) - Closed Specialty Diagnoses / Procedures Referred By Mary carson Referred To Contact Neurology Diagnoses Migraine without status migrainosus, not intractable, unspecified migraine type Memory changes Ken Rod MD Phone: tel: fax: Porsche Mckeon MD [address] [place] [address] [address], [address] [place] [address] Phone: tel: fax: Referral ID Status Reason Start Date Expiration Date V isits Requested Visits Authorized [id number] Closed Specialty Services Required 07/14/2020 07/14/2021 1 1 Encounter Details Date Type Department Care Team (Late st Contact Info) Description 07/14/2020 Orders Only [facility] [address] [place] [address] Ken Rod MD [address]. Provider retired 09/09/24 [place] [address] Migraine without status migrainosus, not intractable, unspecified migraine type (Primary Dx); Memory changes Social History Tobacco Use Types Packs/Day Years [...] have Coronavirus / COVID-19? No / Unsure 07/13/2020 3:24 PM EST documented as of this encounter Plan of Treatment Upcoming Encounters Date Type Department Care Team (Late st Contact Info) Description 12/09/2024 9:45 AM EDT Procedure visit [facility] - Pre Admit [address] [place] [address] 12/30/2024 2:30 PM EDT Hospital Encounter [facility] - Surgery [address] [place] [address] Blas Azevedo Jr., DO [address] [place] [address] 12/30/2024 2:30 PM EDT - 12/30/2024 3:30 PM EDT Surgery [facility] - Surgery [address] [place] [address] Blas Azevedo Jr., DO [address] [place] [address] RELEASE TRIGGER FINGER [[id number] (CPT )] 03/25/2025 10:00 AM EDT Office Visit [facility] [address] [place] [phone] James Schultz MD [address] [place] [address] [phone] Scheduled Procedures Name Priority Associated Diagnoses Date/Ti me RELEASE TRIGGER FINGER left trigger thumb 12/30/2024 2:30 PM EDT Scheduled Referrals Name Type Priority Associated Diagnoses Order Schedule Ambulatory referral to Neurology Outpatient Referral Routine Migraine without status migrainosus, not intractable, unspecified migraine type Memory changes 1 Occurrences starting 07/14/2020 until 01/11/2021 documented as of this encounter Visit Diagnoses Diagnosis Migraine without status migrainosus, not intractable, unspecified migraine type- Primary Memory changes documented in this encounter Additional Health Concerns Assessment Noted Time PHQ-9 Depression Total Score: 0 07/01/19 2:00 PM EST A Body Mass Index follow-up plan has been documented for the patient 05/20/2020 4:36 PM EST documented as of this encounter Care Teams Dining Car Steward Relationship Specialty Start Date End Date James Schultz MD [address] [place] [id number] PCP - General Internal Medicine 09/23/24 documented as of this encounter
--- OUTSIDE RECORDS SUMMARY | 2024-11-12 10:02 | XMS_ITS | Encounter Summary ---
Author Organization [facility] Address [address] [place] [address] Care Team Providers Care General Assembler Installer Name Role Phone Elainastarla Andressa Phelps NP Unavailable [phone] Ken Rod MD Primary Care Provider [phone] Encounter Details Date Type Department Care Team (Late st Contact Info) Description 01/23/2024 Orders Only [facility] [address] [place] [address] Michelle Diez LPN Social History Tobacco Use Types Packs/Day [...] Visit [facility] [address] [place] [address] Mikel Jasso, HAZMAT CDL DRIVER [address] [place] [address] 01/19/2025 2:00 PM EDT Office Visit [facility] [address] [facility] [place] [address] Manuel Orellana, DO [address] [place] [address] 02/18/2026 10:45 AM EDT Office Visit [facility] [address] [place] [address] Mikel Jasso, ALLI [address] [place], [place] [phone] documented as of this encounter Procedures Procedure Name Priority Date/Time Associated Diagnosis Comments PAP SMEAR Routine 01/14/2024 12:00 AM EDT documented in this encounter Results * Pap Smear (01/14/2024 12:00 AM EDT) Swab Cervical swab / Unknown us Manuel Reyna DO LAB CYTOLOGY ORDERABLES Final Re sult EXTERNAL LAB documented in this encounter Visit Diagnoses Not on filedocumented in this encounter Care Teams General Assembler Installer Relationship Specialty Start Date End Date Andressa Alanis NP PCP - [place] [employer] 06/11/2206/10 Ken Rod MD PCP - General Family Medicine 12/26/22 documented as of this encounter
--- OUTSIDE RECORDS SUMMARY | 2024-11-12 10:02 | XMS_ITS | Encounter Summary ---
Author Organization [facility] Address [facility] [place]-[id number] [address] [place] [address] Care Team Providers Care Residential Support Worker Name Role Phone James Schultz MD Primary Care Provider [phone] Reason for Visit * Reason Onset Date Comments Med Refill 12/02/2021 Encounter Details Date Type Department Care Team (Late st Contact Info) Description 12/02/2021 Refill [facility] [place] [phone] Anju Ramsey CMA Social History Tobacco Use Types Packs/Day Years [...] 11/2017 PHQ-2 Answer Date Recorded Total Score 16 09/23/2021 Childcare Answer Date Recorded Childcare Unknown 11/13/2018 [...] encounter Miscellaneous Notes * Telephone Encounter - Anju Ramsey CMA - 12/02/2021 11:57 AM EDT Patient requesting a refill of butalbital acetaminophen sent to [facility] documented in this encounter Plan of Treatment Upcoming Encounters Date Type Department Care Team (Late st Contact Info) Description 12/09/2024 9:45 AM EDT Procedure visit [facility] - Pre Admit [address] [place] [address] 12/30/2024 2:30 PM EDT Hospital Encounter [facility] - Surgery [address] [place] [address] Blas Azevedo Jr., DO [address] [place] [address] 12/30/2024 2:30 PM EDT - 12/30/2024 3:30 PM EDT Surgery [facility] - Surgery [address] [place] [address] Blas Azevedo Jr., DO [address] [place] [address] RELEASE TRIGGER FINGER [[id number] (CPT )] 03/25/2025 10:00 AM EDT Office Visit [facility] [address] [place] [phone] James Schultz MD [address] [place] [phone] Scheduled Procedures Name Priority Associated Diagnoses Date/Ti me RELEASE TRIGGER FINGER left trigger thumb 12/30/2024 2:30 PM EDT documented as of this encounter Visit Diagnoses Not on filedocumented in this encounter Additional Health Concerns Assessment Noted Time PHQ-9 Depression Total Score: 16 022 3:00 PM EDT A Body Mass Index follow-up plan has been documented for the patient 09/23/2021 3:28 PM EDT documented as of this encounter Care Teams Residential Support Worker Relationship Specialty Start Date End Date James Schultz MD [address] [place] [address] PCP - General Internal Medicine 09/23/24 documented as of this encounter
--- OUTSIDE RECORDS SUMMARY | 2024-11-12 10:02 | XMS_ITS | Encounter Summary ---
Author Organization [facility] Address [address] [facility] [place] [address] Care Team Providers Care Carpenters Helper Name Role Phone Ken Rod MD Primary Care Provider [phone] Reason for Visit * Reason Onset Date Comments Med Refill 11/11/2024 Encounter Details Date Type Department Care Team (Late st Contact Info) Description 11/11/2024 Refill [facility] [address] [place] [address] Mikel Jasso, DRIER HELPER [address] [place], [place] [phone] S/P total knee arthroplasty, right Social History Tobacco Use Types Packs/Day Years [...] Office Visit [facility] [address] [place] [address] Mikel Jasso, DRIER HELPER [address] [place], [place] [phone] 01/19/2025 2:00 PM EDT Office Visit [facility] [address] [place] [address] Manuel Orellana, [address] [place] [address] 02/18/2026 10:45 AM EDT Office Visit [facility] [address] [facility] [place] [address] Mikel Jasso, DRIER HELPER [address] [place] [address] documented as of this encounter Visit Diagnoses Diagnosis S/P total knee arthroplasty, right documented in this encounter Care Teams Carpenters Helper Relationship Specialty Start Date End Date Ken Rod MD PCP - General Family Medicine 12/26/22 documented as of this encounter
--- OUTSIDE RECORDS SUMMARY | 2024-11-12 10:02 | XMS_ITS | Encounter Summary ---
Author Organization [facility] Address [address] [facility] [place] [address] Care Team Providers Care Benefits Sales Consultant Name Role Phone Andressa Alanis NP Unavailable [phone] Ken Rod MD Primary Care Provider + [phone] Encounter Details Date Type Department Care Team (Late st Contact Info) Description 01/07/2024 Orders Only [facility] [address] [place] [address] Yadi Coreas LPN [address] [place] [phone] Social History Tobacco Use Types Packs/Day Years [...] Office Visit [facility] [address] [place] [address] Mikel Jasso, FURNITURE SHAMPOOER [address] [place], [place] [phone] 01/19/2025 2:00 PM EDT Office Visit [facility] [address] [place] [address] Manuel Orellana, [address] [place], [place] [phone] 02/18/2026 10:45 AM EDT Office Visit [facility] [address] [place] [phone] Mikel Jasso, FURNITURE SHAMPOOER [address] [place] [address] documented as of this encounter Procedures Procedure Name Priority Date/Time Associated Diagnosis Comments PAP SMEAR Routine 12/26/2022 12:00 AM EDT documented in this encounter Results * Pap Smear (12/26/2022 12:00 AM EDT) Swab Cervical swab / Unknown us [facility] Reyna Nurse LAB CYTOLOGY ORDERABLES Final Result Performing Organization Address City/State/[facility] Co de Phone Number EXTERNAL LAB documented in this encounter Visit Diagnoses Not on filedocumented in this encounter Care Teams Benefits Sales Consultant Relationship Specialty Start Date End Date Andressa Alanis NP PCP - [place] [employer] 06/11/2206/10 Ken Rod MD PCP - General Family Medicine 12/26/22 documented as of this encounter
--- OUTSIDE RECORDS SUMMARY | 2024-11-12 10:02 | XMS_ITS | Clinical Summary ---
Author Organization [facility] Address [id number] [address] [place] [address] Care Team Providers Care Supervisor Byproducts Name Role Phone James Schultz MD Primary Care Provider [phone] Allergies Active Allergy Reactions Criticality Noted Date Comments No Known Drug Allergies 05/18/2017 Medications FERROUS SULFATE (IRON ORAL) Take by mouth daily. Active vitamin B complex/folic acid (SUPER B MAXI COMPLEX ORAL) Take by mouth daily. Active olopatadine (PATADAY) 0.2 % drops Administer 1 drop to both eyes in the morning. 9 Active calcium carbonate/vitamin D3 (CALCIUM 600 + D,3, ORAL) Take by mouth daily. Active albuterol (PROVENTIL HFA;VENTOLIN HFA) 90 mcg/actuation inhalerIndication s:Mild intermittent asthma without complication Inhale 2 puffs 4 (four) times a day as needed for wheezing. 18 g 3 3 Active cetirizine (ZyrTEC) 10 mg tablet Take 1 tablet (10 mg total) by mouth in the morning. Active butalbital-acetam inophen-caff (FIORICET, ESGIC) 50-325-40 mg per tablet Take 1-2 tablets by mouth every 6 (six) hours as needed for headaches. 30 tablet 4 Active atorvastatin (LIPITOR) 10 mg tablet TAKE 1 TABLET IN THE MORNING 90 tablet 2 4 Active sertraline (ZOLOFT) 50 mg tablet TAKE 1 AND 1/2 TABLETS EVERY MORNING 135 tablet 5 Active SYNTHROID 50 mcg tablet TAKE 1 TABLET EVERY MORNING 90 tablet 5 Active montelukast (SINGULAIR) 10 mg tablet TAKE 1 TABLET NIGHTLY 90 tablet 5 Active buPROPion XL (WELLBUTRIN XL) 300 mg 24 hr tabletIndications :Routine general medical examination at a health care facility TAKE 1 TABLET EVERY MORNING 90 tablet 3 5 Active Active Problems Problem Noted Date Diagnosed Date Primary osteoarthritis of right knee 04/09/2024 Asthma 11/12/2017 Essential hypertension, benign 05/29/2017 Acquired hypothyroidism 05/18/2017 Encounters Date Type Department Care Team Description 09/23/2024 10:30 AM EDT Office Visit [facility] [place] [phone] James Schultz MD Mild intermittent asthma without complication (Primary Dx); Acquired hypothyroidism; H/O total knee replacement, right; Trigger finger of left hand, unspecified finger 09/23/2024 Travel 09/23/2024 Refill [facility] [place] [phone] Ken Rod MD Routine general medical examination at a health care facility 08/25/2024 Refill [facility] [place] [phone] Ken Rod MD from Last 3 Months Immunizations Immunization Administration Dates Next Due COVID-19, mRNA, LNP-S, PF, 1 00mcg/0.5mL Dose 06/06/2021,11/03/2020,10/06/2020 COVID-19, mRNA, LNP-S, PF, 30mcg/0.3mL Dose 05/12 Pneumococcal Polysaccharide 02/25/2020 Tdap 01/17/2016 Family History Medical History Relation Name Comments Intracerebral hemorrhage Father Breast cancer Maternal Grandmother Cancer Mother Stroke Mother Heart failure Paternal Grandfather Hyperlipidemia Paternal Grandmother Hypertension Paternal Grandmother Hypothyroidism Paternal Grandmother Stroke Paternal Grandmother Breast cancer Sister Relation Name Status Comments Father Maternal Grandmother Mother Alive Paternal Grandfather Paternal Grandmother Sister Social History Tobacco Use Types Packs/Day Years Used Date Smoking Tobacco: Never Smokeless Tobacco: Never Tobacco Cessation:Counseling Given: Not Answered Alcohol Use Standard Drinks/Week Comments Not Currently 0 (1 standard drink = 0.6 oz pur e alcohol) occasional C Utilities Answer Date Recorded In the past 12 months has th e electric, gas, oil, or water company threatened to shut off services in your home? No 04/09/2024 Social Connection and Isolat ion Panel [NHANES] Answer Date Recorded In a typical week, how many times do you talk on the phone with family, friends, or neighbors? More than three times a week 04/09/2024 How often do you get togethe r with friends or relatives? More than three times a week 04/09/2024 How often do you attend chur ch or alevism services? Never 04/09/2024 Do you belong to any clubs o r organizations such as hinduism groups, unions, fraternal or athletic groups, or school groups? No 04/09/2024 How often do you attend meet ings of the clubs or organizations you belong to? Never 04/09/2024 Are you , , di vorced, , never , or living with a partner? 04/09/2024 AUDIT-C Answer Date Recorded Frequency of Alcohol Consumption Monthly or less 04/16/2018 Average Number of Drinks 1 or 2 018 Frequency of Binge Drinking Never 11/2017 Overall Financial Resource Strain (CARDIA) Answe r Date Recorded How hard is it for you to pa y for the very basics like food, housing, medical care, and heating? Not hard at all 04/09/2024 PHQ-2 Answer Date Recorded Total Score 0 09/23/2024 [facility] - Occupational Stress Questionnaire Answer Date Recorded Do you feel stress - tense, restless, nervous, or anxious, or unable to sleep at night because your mind is troubled all the time - these days? Only a little 04/09/2024 Exercise Vital Sign Answer Date Recorde d On average, how many days pe r week do you engage in moderate to strenuous exercise (like a brisk walk)? 0 days 04/09/2024 On average, how many minutes do you engage in exercise at this level? 0 min 04/09/2024 PRAPARE - Transportation Answer Date Re corded In the past 12 months, has l ack of transportation kept you from medical appointments or from getting medications? No 03/13 In the past 12 months, has l ack of transportation kept you from meetings, work, or from getting things needed for daily living? No 04/09/2024 Housing Instability Answer Date Recorde d Are you worried or concerned that in the next two months you may not have stable housing that you own, rent or stay in as a part of a household? No 04/09/2024 Childcare Answer Date Recorded Do problems getting child ca re make it difficult for you to work or study? No 04/09/2024 Employment Answer Date Recorded Do you need help finding a [facility] career center and/or a training program? No 04/09/2024 Hunger Screening Answer Date Recorded Within the past 12 months we worried whether our food would run out before we got money to buy more. Never True 09/23/2024 Within the past 12 months th e food we bought just didn't last and we didn't have money to get more. Never True 09/23/2024 Purpose - Life Answer Date Recorded I have a purpose and direction in my life. Stron gly Agree 04/09/2024 Comments No Sex and Gender Information Value Date Recorded Sex Assigned at Female 04/09/2024 5:29 PM EDT Legal Sex Female 12:02 PM EDT Gender Identity Female 04/09/2024 5:29 PM EDT Sexual Orientation Straight 04/09/2024 5: 29 PM EDT Last Filed Vital Signs Vital Sign Reading Time Taken Comments Blood Pressure 140/86 09/23/2024 10:19 AM EDT Pulse 70 09/23/2024 10:19 AM EDT Temperature 36.7 C (98 F) 04/10/2024 7:33 AM EDT Respiratory Rate 18 09/23/2024 10:19 AM EDT Oxygen Saturation 97% 09/23/2024 10:19 AM EDT Inhaled Oxygen Concentration - - Weight 93.9 kg (207 lb) 09/23/2024 10:19 AM EDT Height 157.5 cm (5' 2 ) 04/09/2024 9:07 AM EDT Body Mass Index 37.86 04/09/2024 9:07 AM EDT Plan of Treatment Upcoming Encounters Date Type Department Care Team (Late st Contact Info) Description 12/09/2024 9:45 AM EDT Procedure visit [facility] - Pre Admit [address] [place] [address] 12/30/2024 2:30 PM EDT Hospital Encounter [facility] - Surgery [address] [facility] [place] [address] Blas Azevedo Jr., DO [address] [facility] [address] [place] [address] 12/30/2024 2:30 PM EDT - 12/30/2024 3:30 PM EDT Surgery [facility] - Surgery [address] [place] [address] Blas Azevedo Jr., DO [address] [facility] [address] [place] [address] RELEASE TRIGGER FINGER [95002 (CPT )] 03/25/2025 10:00 AM EDT Office Visit [facility] [address] [place] [phone] James Schultz MD [address] [place] [phone] Scheduled Procedures Name Priority Associated Diagnoses Date/Ti me RELEASE TRIGGER FINGER left trigger thumb 12/30/2024 2:30 PM EDT Health Maintenance Due Date Last Done Comments Zoster (Shingles) Vaccine (1 of 2) 2016 COVID-19 Vaccine (2023-2 5 season) 2024 06/07/2021, 06/06/2021, 05/02/2021, Additional history exists Mammogram 10/22/2024 10/23/2023, 02/0 07/2022, 04/15/2019, Additional history exists Influenza Vaccine 02/09/2025 Adult BMI Follow Up Plan 09/23/2025 09/23/2024 Adult BMI Screening 09/23/2025 09/23/2024 Depression Screening 09/23/2025 09/23/2024 Tobacco Screening 09/23/2025 09/23/2024 DTaP,Tdap and Td Vaccines (2 - Td or Tdap) 01/16/2026 01/17/2016 Pap Smear 01/13/2027 01/14/2024 Colonoscopy 06/28/2027 06/28/2017 Goals Goal Patient Goal Type Associated Problems Recent Progress Patient-Stated? Author Autogenera elza Goal Care Plan Autogenerated Problem No [employer] Implanted Type Area Aerologist Device Identifier Shelf Expiration Date Model / Serial / Lot Cement Bn Bio 40gm Rpl [id number] - Sna - [id number] Implanted:Qt y: 1 on 04/09/2024 by Wilfred Desouza DO at [facility] Cement Right: Knee [employer] [id number] 04/10/2026 [id number] / NA / [id number] Cement Bn Bio 40gm Rpl [id number] - Sna - [id number] Implanted:Qt y: 1 on 04/09/2024 by Wilfred Desouza DO at [facility] Cement Right: Knee [employer] [id number] 04/10/2026 [id number] / NA / [id number] Surface Artc 11mm Persona Mdl Cngr 6-7 Cd Kn Rt Vivacit-E - Sna - [id number] Implanted:Qt y: 1 on 04/09/2024 by Wilfred Desouza DO at [facility] Orthopedic Implant Right: Knee [employer] [id number] 10/29/2028 42-5221-004 -11 / NA / [id number] Component Fem 7 Std Kn Rt Crcte Rtn Cmnt Persona Cocr - Sna - [id number] Implanted:Qt y: 1 on 04/09/2024 by Wilfred Desouza DO at [facility] Orthopedic Implant Right: Knee [employer] [id number] 10/13/2033 42-5026-062 / NA / [id number] Component Ptlr 32mm Persona Alply Kn Strl Lf - Sna - [id number] Implanted:Qt y: 1 on 04/09/2024 by Wilfred Desouza DO at [facility] Orthopedic Implant Right: Knee [employer] [id number] 02/12/2029 42-5400-000 -32 / NA / [id number] Baseplate Tib 5d D Kn Rt Cmnt Stm Persona Tiv Strl - Sna - [id number] Implanted:Qt y: 1 on 04/09/2024 by Wilfred Desouza DO at [facility] Plate Right: Knee [employer] [id number] 10/19/2033 42-5320-067 - / NA / [id number] Explanted Type Area Aerologist Device Identifier Shelf Expiration Date Model / Serial / Lot Screw Bn 35mm 6.5mm St Hip Actb Trlg Strl Rpl [id number] - Sna - [id number] Explanted:Qty: 1 on 04/09/2024 by Wilfred Desouza DO at [facility] Screw Right: Knee [employer] [id number] 10/04/2033 5-35 / NA / [id number] Screw Bn 35mm 6.5mm St Hip Actb Trlg Strl Rpl [id number]+32 - Sna - [id number] Explanted:Qty: 1 on 04/09/2024 by Wilfred Desouza DO at [facility] Screw Right: Knee [employer] [id number] 10/29/2033- 5-35 / NA / [id number] Guide 27mm Hx Hd Scr Srg - Sna - [id number] Explanted:Qty: 1 on 04/09/2024 by Wilfred Desouza DO at [facility] Screw Right: Knee [employer] [id number] 12/21/2033-5983-04 0-27 / NA / [id number] Screw Gd 48mm Qd-Spr Hex Hd Mis Strl - Sna - [id number] Explanted:Qty: 1 on 04/09/2024 by Wilfred Desouza DO at [facility] Screw Right: Knee [employer] [id number] 12/23/2033- 0-48 / NA / [id number] Screw Gd 48mm Qd-Spr Hex Hd Mis Strl - Sna - [id number] Explanted:Qty: 1 on 04/09/2024 by Wilfred [facility] DO at [facility] Screw Right: Knee [employer] [id number] 11/19/2033- 0-48 / NA / [id number] Guide 27mm Hx Hd Scr Srg - Sna - [id number] Explanted:Qty: 1 on 04/09/2024 by Wilfred Desouza DO at [facility] Screw Right: Knee [employer] [id number] 12/21/2033 0-27 / NA / [id number] Procedures Procedure Name Priority Date/Time Associated Diagnosis Comments MAMMOGRAPHY Routine 10/23/2023 10:19 AM EDT COLONOSCOPY 06/28/2017 7:05 AM EST from Last 3 Months or Most Recently Relevant to Health Maintenance Results * HM MAMMOGRAPHY (10/23/2023 10:19 AM EDT) Anatomical Region Laterality Modality Other us Scanning Provider External HEALTH MAINTENANCE Fi nal Result * Colonoscopy (06/28/2017 7:05 AM EST) 06/28/2017 7:05 AM EST Narrative PM CARDIOVASCULAR - 06/28/2017 7:59 AM EST [facility] Patient Name: Stacey Ortega Procedure Date No Time: 06/28/2017 Date of : 1965 Admit Type: Outpatient Age: 51 Room: [facility] OR Gender: Female Note Status: Finalized Attending MD: Josh Flores DO Procedure: Colonoscopy Indications: Screening for colorectal malignant neoplasm Providers: Josh Flores DO Referring MD: Josh Flores DO Medicines: Propofol per Anesthesia Complications: No immediate complications. Procedure: After I obtained informed consent, the scope was passed under direct vision. Throughout the procedure, the patient's blood pressure, pulse, and oxygen saturations were monitored continuously. The Olympus [id number] #[id number] adult colonscope was introduced through the anus and advanced to the cecum, identified by appendiceal orifice and ileocecal valve. The colonoscopy was performed without difficulty. The patient tolerated the procedure well. The quality of the bowel preparation was excellent. Findings: The perianal and digital rectal examinations were normal. The colon (entire examined portion) appeared normal. The entire examined colon appeared normal on direct and retroflexion views. Impression: - The entire examined colon is normal. - The entire examined colon is normal on direct and retroflexion views. - No specimens collected. Recommendation: - Discharge patient to home. - Repeat colonoscopy in 10 years for screening purposes. - Return to my office PRN. Procedure Code(s): --- Professional --- 27140, Colonoscopy, flexible; diagnostic, including collection of specimen(s) by brushing or washing, when performed (separate procedure) Diagnosis Code(s): --- Professional --- Z12.11, Encounter for screening for malignant neoplasm of colon CPT copyright 2016 [employer]. All rights reserved. The codes documented in this report are preliminary and upon motor builder assembler review may be revised to meet current compliance requirements. DO Josh Mejias DO 06/28/2017 7:59:31 AM Number of Addenda: 0 Note Initiated On: 06/28/2017 7:05 AM Procedure Note Josh Flores DO - 06/28/2017 [facility] Patient Name: Stacey Ortega Procedure Date No Time: 06/28/2017 Date of : 1965 Admit Type: Outpatient Age: 51 Room: [place] [address] Gender: Female Note Status: Finalized Attending MD: Josh Flores DO Procedure: Colonoscopy Indications: Screening for colorectal malignant neoplasm Providers: Josh Flores DO Referring MD: Josh Flores DO Medicines: Propofol per Anesthesia Complications: No immediate complications. Procedure: After I obtained informed consent, the scope waspassed under direct vision. Throughout the procedure, the patient's blood pressure, pulse, and oxygensaturations were monitored continuously. The Olympus [id number] #[id number] adult colonscope was introduced through the anus and advanced to the cecum, identified by appendiceal orifice and ileocecal valve. Thecolonoscopy was performed without difficulty. The patienttolerated the procedure well. The quality of the bowelpreparation was excellent. Findings: The perianal and digital rectal examinations were normal. The colon (entire examined portion) appeared normal. The entire examined colon appeared normal on direct and retroflexion views. Impression: - The entire examined colon is normal. - The entire examined colon is normal on direct and retroflexion views. - No specimens collected. Recommendation: - Discharge patient to home. - Repeat colonoscopy in 10 years for screeningpurposes. - Return to my office PRN. Procedure Code(s): --- Professional --- 58286, Colonoscopy, flexible; diagnostic, including collection of specimen(s) by brushing or washing,when performed (separate procedure) Diagnosis Code(s): --- Professional --- Z12.11, Encounter for screening for malignant neoplasm of colon CPT copyright 2016 [employer]. All rights reserved. The codes documented in this report are preliminary and upon motor builder assembler reviewmay be revised to meet current compliance requirements. DO Josh Mejias DO 06/28/2017 7:59:31 AM Number of Addenda: 0 Note Initiated On: 06/28/2017 7:05 AM Josh Flores DO GI PROCEDURE ORDERABLES Fin al Result PM CARDIOVASCULAR from Last 3 Months or Most Recently Relevant to Health Maintenance Additional Health Concerns Active Problems Noted Date Diagnosed Date Autogenerated Problem 10/17/2024 Insurance ANTH Advance Directives * Full Code (Latest Code Status on File) Date Activated Date Inactivated Comments 04/09/2024 1:02 PM 04/10/2024 4:57 PM Care Teams Supervisor Byproducts Relationship Specialty Start Date End Date James Schultz MD [address] [place] [address] PCP - General Internal Medicine 09/23/24
--- OUTSIDE RECORDS SUMMARY | 2024-11-12 10:02 | XMS_ITS | Encounter Summary ---
Author Organization [facility] Address [id number] [address] [place] [address] Care Team Providers Care Senior Partner Name Role Phone James Schultz MD Primary Care Provider [phone] Encounter Details Date Type Department Care Team (Late st Contact Info) Description 03/17/2022 Orders Only [facility] [address] [place] [phone] Anju Ramsey CMA Routine general medical examination at a health [...] Description 12/09/2024 9:45 AM EDT Procedure visit [facility] - Pre Admit [address] [place] [address] 12/30/2024 2:30 PM EDT Hospital Encounter [facility] - Surgery [address] [facility] [place] [address] Blas Azevedo Jr., DO [address] [place] [address] 12/30/2024 2:30 PM EDT - 12/30/2024 3:30 PM EDT Surgery [facility] - Surgery [address] [place] [address] Blas Azevedo Jr., DO [address] [place] [address] RELEASE TRIGGER FINGER [04497 (CPT )] 03/25/2025 10:00 AM EDT Office Visit [facility] [address] [place] [phone] James Schultz MD [address] [place] [id number] Scheduled Procedures Name Priority Associated Diagnoses Date/Ti me RELEASE TRIGGER FINGER left trigger thumb 12/30/2024 2:30 PM EDT documented as of this encounter Procedures Procedure Name Priority Date/Time Associated Diagnosis Comments THYROID PROFILE INCLUDES TSH FT4 Routine 03/16/2022 Acquired hypothyroidism CBC WITH AUTO DIFFERENTIAL Routine 03/16/2022 Routine general medical examination at a health care facility LIPID PROFILE Routine 03/16/2022 Routine general medical examination at a health care facility COMPREHENSIVE METABOLIC PANEL Routine 03/16/2022 Routine general medical examination at a health care facility documented in this encounter Results * Thyroid profile includes TSH FT4 (03/16/2022) 03/16/2022 Ken Rod MD LAB BLOOD ORDERABLES Final R esult Performing Organization Address [facility] de Phone Number SUNQUEST * CBC auto differential (03/16/2022) 03/16/2022 Ken Rod MD LAB BLOOD ORDERABLES Final R esult Performing Organization Address [facility] de Phone Number SUNQUEST * Comprehensive metabolic panel (03/16/2022) 03/16/2022 Ken Rod MD LAB BLOOD ORDERABLES Final R esult Performing Organization Address [facility] de Phone Number SUNQUEST * (ABNORMAL) Lipid profile (03/16/2022) External Cholesterol 248(A) <=200 [facility] External Cholesterol:Hdl 5.4(A) <=4.4 [facility] External Hdl Cholesterol 46 [facility] External Ldl (Calc) 172 [facility] External Triglycerides 150 [facility]QUEST External Very Low Lipoprotein 30 [facility]QUEST 03/16/2022 Result [facility] Ken Rod MD LAB BLOOD ORDERABLES Final R esult Performing Organization Address [facility] de Phone Number SUNQUEST documented [...] documented as of this encounter Care Teams Senior Partner Relationship Specialty Start Date End Date James Shcultz MD [address] [place] [address] PCP - General Internal Medicine 09/23/24 documented as of this encounter
--- OUTSIDE RECORDS SUMMARY | 2024-11-12 10:02 | XMS_ITS | Encounter Summary ---
Author Organization [facility] Address [id number] [address] [place] [address] Care Team Providers Care Musical String Maker Name Role Phone James Schultz MD Primary Care Provider [phone] Encounter Details Date Type Department Care Team (Late st Contact Info) Description 03/12/2023 Telephone [facility] [address] [place] [address] Ken Rod MD [address]. Provider retired 09/09/24 [place], [place] [id number] Social History Tobacco Use Types Packs/Day Years [...] PHQ-2 Answer Date Recorded Total Score 14 03/09/2023 Childcare Answer Date Recorded Childcare Unknown 11/13/2018 Employment Answer Date Recorded Employment Unknown 11/13/2018 Hunger Screening Answer Date Recorded Within the past 12 months we worried whether our food would run out before we got money to buy more. Never True 03/09/2023 Within the past 12 months th e food we bought just didn't last and we didn't have money to get more. Never True 03/09/2023 Purpose - Life Answer Date Recorded Purpose [...] Telephone Encounter - Ken Rod MD - 03/12/2023 3:19 PM EDT ----- Message from Anju Ramsey CMA sent at 03/12/2023 3:13 PM EDT ----- Regarding: FW: Kevin morelos Contact: ----- Message ----- From: Stacey Morelos Sent: 03/12/2023 3:00 PM EDT To: Joel Sanchez Clinical Staff Subject: Kevin Duffy has had the cough that he gets in the fall and spring for about a little over a weekqq. Should I bring him in or can you prescribe something for him? He can't have amoxicillian because of the red dye. Thank you, Shi Omer documented in this encounter Plan of Treatment Upcoming Encounters Date Type Department Care Team (Late st Contact Info) Description 12/09/2024 9:45 AM EDT Procedure visit [facility] - Pre Admit [address] [place] [phone] 12/30/2024 2:30 PM EDT Hospital Encounter [facility] - Surgery [address] [place] [address] Blas Azevedo Jr., DO [address] [facility] [address] [place] [address] 12/30/2024 2:30 PM EDT - 12/30/2024 3:30 PM EDT Surgery [facility] - Surgery [address] [place] [phone] Blas Azevedo Jr., DO [address] [facility] [address] [place] [address] RELEASE TRIGGER FINGER [[id number] (CPT )] 03/25/2025 10:00 AM EDT Office Visit [facility] [address] [place] [phone] James Schultz MD [address] [place] [address] Scheduled Procedures Name Priority Associated Diagnoses Date/Ti me RELEASE TRIGGER FINGER left trigger thumb 12/30/2024 2:30 PM EDT documented as of this encounter Visit Diagnoses Not on filedocumented in this encounter Additional Health Concerns Assessment Noted Time PHQ-9 Depression Total Score: 14 03/09/ 023 7:00 AM EDT A Body Mass Index follow-up plan has been documented for the patient 09/23/2021 3:28 PM EDT documented as of this encounter Care Teams Musical String Maker Relationship Specialty Start Date End Date James Schultz MD [address] [place] [address] PCP - General Internal Medicine 09/23/24 documented as of this encounter
--- OUTSIDE RECORDS SUMMARY | 2024-11-12 10:02 | XMS_ITS | Encounter Summary ---
Author Organization [facility] tem Address [id number] [address] [place] [address] Care Team Providers Care Manager Income Tax Name Role Phone James Schultz MD Primary Care Provider [phone] Encounter Details Date Type Department Care Team (Late st Contact Info) Description 06/01/2021 Orders Only [facility] [address] [place] [phone] Ellen Kovacs CMA Routine general medical examination at a [...] Description 12/09/2024 9:45 AM EDT Procedure visit [facility] - Pre Admit [address] [place] [address] 12/30/2024 2:30 PM EDT Hospital Encounter [facility] - Surgery [address] [facility] [place] [phone] Blas Azevedo Jr., DO [address] [place] [address] [place] [address] 12/30/2024 2:30 PM EDT - 12/30/2024 3:30 PM EDT Surgery [facility] - Surgery [address] [facility] [phone] Blas Azevedo Jr., DO [address] [place] [address] RELEASE TRIGGER FINGER [[id number] (CPT )] 03/25/2025 10:00 AM EDT Office Visit [facility] [address] [place] [phone] James Schultz MD [address] [place] [address] Scheduled Procedures Name Priority Associated Diagnoses Date/Ti me RELEASE TRIGGER FINGER left trigger thumb 12/30/2024 2:30 PM EDT documented as of this encounter Procedures Procedure Name Priority Date/Time Associated Diagnosis Comments LIPID PROFILE Routine 05/27/2021 Routine general medical examination at a health care facility documented in this encounter Results * Lipid profile (05/27/2021) External Cholesterol 247 [facility] External Cholesterol:Hdl 4.8 [facility] External Hdl Cholesterol 51 [facility] External Ldl (Calc) 189.8 [facility] External Triglycerides 131 [facility] External Very Low Lipoprotein 26.2 [facility] 05/27/2021 us Ken Rod MD LAB BLOOD ORDERABLES Final R esult [facility] documented in this encounter Visit Diagnoses Diagnosis Routine general medical examination at a health care facility documented in this encounter Additional Health Concerns Assessment Noted Time PHQ-9 Depression Total Score: 0 03/25/20 21 3:00 PM EDT A Body Mass Index follow-up plan has been documented for the patient 05/20/2020 4:36 PM EST documented as of this encounter Care Teams Manager Income Tax Relationship Specialty Start Date End Date James Schultz MD [address] [place] [address] PCP - General Internal Medicine 09/23/24 documented as of this encounter
--- NOTE | 2024-11-12 10:04 | MM_ITS ---
Patient Name: ESTELA ORTEGA MR#: [id number] : 1965 Exam Date: 11/12/2024 Ordering Doctor: DR CATA HALL . RADIOLOGY REPORT PROCEDURE: MM TOMOSYNTHESIS SCREENING BI COMPARISON: MM TOMOSYNTHESIS SCREENING BI, 10/22/2023. MG MAMM SCREEN 3D NONA CAD, 07/13/2022. MG MAMM SCREEN 3D NONA CAD, 06/27/2021. MG MAMM NONA SCRN W CAD DIG, 01/05/2012. INDICATIONS: Screening Calculator Name NCI Breast Cancer Risk Assessment Tool 5 Year Breast Cancer Risk 1.00% Lifetime Breast Cancer Risk 5.60% Personal Breast Cancer No Personal Ovarian Cancer No Treatments None Family Cancers Grandmother-maternal with breast cancer at age 50. LOCATION: [facility] BREAST COMPOSITION: There are scattered areas of fibroglandular density. FINDINGS: RIGHT BREAST: No significant suspicious finding. Benign-appearing lymph nodes are noted along the chest wall. LEFT BREAST: No significant suspicious finding. Benign-appearing lymph nodes are noted along the chest wall. DIAGNOSTIC CATEGORY 1--NEGATIVE. RECOMMENDATIONS: ROUTINE MAMMOGRAM AND CLINICAL EVALUATION IN 12 MONTHS. PLEASE NOTE: A NORMAL MAMMOGRAM DOES NOT EXCLUDE THE POSSIBILITY OF BREAST CANCER. A CLINICALLY SUSPICIOUS PALPABLE LUMP SHOULD BE BIOPSIED. Dictated by: Jeevan Nesbitt MD on 11/12/2024 at 13:08 Approved by: Jeevan Nesbitt MD on 11/12/2024 at 13:10
--- OUTSIDE RECORDS SUMMARY | 2024-11-12 10:16 | XMS_ITS | CCD ---
Author Organization [facility] Care Team Providers Care Orthopedics Teacher Name Role Phone Hoda Vences Unavailable OCTAVIA, DR DOBSON Primary Care Unavailable RAFAEL, DR IVY Attending Unavailable RAFAEL, DR IVY Admitting Unavailable RAFAEL, DR IVY Consulting Unavailable DEFRANCE, DR DOBSON Primary Care Unavailable WEST, DR OLYA Ann Consulting Unavailable RAFAEL, DR IVY Attending Unavailable RAFAEL, DR IVY Admitting Unavailable RAFAEL, DR IVY Consulting Unavailable DEFRANCE, DR DOBSON Primary Care Unavailable DEFRANCE, DR DOBSON Consulting Unavailable DEFRANCE, DR DOBSON Attending Unavailable DEFRANCE, DR DOBSON Admitting Unavailable DEFRANCE, DR DOBSON Primary Care Unavailable DEFRANCE, DR DOBSON Consulting Unavailable DEFRANCE, DR DOBSON Attending Unavailable DEFRANCE, DR DOBSON Admitting Unavailable Apling SOFTWARE TOOLS ENGINEER, Andressa Phelps Unavailable [phone] Olya Rod MD Primary Care Provider ISRRAEL DESOUZA Referring Unavailable OLYA ROD Primary Care Unavailable ISRRAEL DESOUZA Attending Unavailable ISRRAEL DESOUZA Referring Unavailable OLYA ROD Primary Care Unavailable ISRRAEL DESOUZA Referring Unavailable OLYA ROD Primary Care Unavailable ISRRAEL DESOUZA Attending Unavailable ISRRAEL DESOUZA Referring Unavailable OLYA ROD Primary Care Unavailable OLYA ROD Referring Unavailable OLYA ROD Primary Care Unavailable ISRRAEL DESOUZA Referring Unavailable OLYA ROD Primary Care Unavailable ISRRAEL DESOUZA Admitting Unavailable ISRRAEL DESOUZA Attending Unavailable OLYA ROD Primary Care Unavailable Olya Rod MD Primary Care Provider [phone] Olya Rod MD Primary Care Provider Olya Rod MD Primary Care Provider OLYA ROD Attending Unavailable DEFOLYA ZELAYA Referring Unavailable DEFRANCE, OLYA Carson Primary Care Unavailable JAMES VELASQUEZ Attending Unavailable DEFRANCE, OLYA Carson Referring Unavailable RONJAMES Primary Care Unavailable KELBLEY, MIRYAM Attending Unavailable MENDOZA, MARICARMEN T Referring Unavailable KELBLEY, MIRYAM Attending Unavailable MENDOZA, MARICARMEN T Referring Unavailable KELBLEY, MIRYAM Attending Unavailable MENDOZA, MARICARMEN T Referring Unavailable MENDOZA, MARICARMEN T Attending Unavailable MENDOZA, MARICARMEN T Referring Unavailable JR. SKYLER, FROYLAN Matthews Attending Unavaila MAUNEL Arzola Attending Unavailable APLING, ANDRESSA Phelps Attending Unavailable APLING, ANDRESSA Phelps Referring Unavailable LYLY, ISRRAEL Travis Attending Unavailable BLACKSTONYVETTE Attending Unavailable APLING, ANDRESSA Phelps Referring Unavailable LYLY, ISRRAEL Travis Attending Unavailable APLING, ANDRESSA Phelps Attending Unavailable APLING, ANDRESSA Phelps Referring Unavailable PEREZ, ELSY Maldonado Attending Unavailable MENDOZA, MARICARMEN T Referring Unavailable LYLY, ISRRAEL Travis Attending Unavailable PEREZ, ELSY Maldonado Attending Unavailable MENDOZA, MARICARMEN T Referring Unavailable PEREZ, ELSY Maldonado Attending Unavailable MENDOZA, MARICARMEN T Referring Unavailable PEREZ, ELSY Maldonado Attending Unavailable MENDOZA, MARICARMEN T Referring Unavailable BRINK, ISIAH Attending Unavailable MENDOZA, MARICARMEN T Referring Unavailable BRINK, ISIAH Attending Unavailable MENDOZA, MARICARMEN T Referring Unavailable KELBLEY, MIRYAM Attending Unavailable MENDOZA, MARICARMEN T Referring Unavailable BRINK, ISIAH Attending Unavailable MENDOZA, MARICARMEN T Referring Unavailable KELBLEY, MIRYAM Attending Unavailable MENDOZA, MARICARMEN T Referring Unavailable BLACKSTONYVETTE Attending Unavailable MENDOZA, MARICARMEN T Referring Unavailable APLING, ANDRESSA Phelps Attending Unavailable APLING, ANDRESSA Phelps Referring Unavailable KELBLEY, MIRYAM Attending Unavailable MENDOZA, MARICARMEN T Referring Unavailable BRINK, ISIAH Attending Unavailable MENDOZA, MARICARMEN T Referring Unavailable BLACKSTON, YVETTE Carson Attending Unavailable MENDOZA, MARICARMEN T Referring Unavailable KELBLEY, MIRYAM Attending Unavailable MENDOZA, MARICARMEN T Referring Unavailable BRINK, ISIAH Attending Unavailable MENDOZA, MARICARMEN T Referring Unavailable BRINK, ISIAH Attending Unavailable MENDOZA, MARICARMEN T Referring Unavailable BRINK, ISIAH Attending Unavailable MENDOZA, MARICARMEN T Referring Unavailable KELBLEY, MIRYAM Attending Unavailable MENDOZA, MARICARMEN T Referring Unavailable BRINK, ISIAH Attending Unavailable MENDOZA, MARICARMEN T Referring Unavailable BRINK, ISIAH Attending Unavailable MENDOZA, MARICARMEN T Referring Unavailable YVETTE RICHARDSON Attending Unavailable MARICARMEN MENDOZA Referring Unavailable IMRYAM ALDRICH Attending Unavailable MARICARMEN MENDOZA Referring Unavailable MIRYAM ALDRICH Attending Unavailable MARICARMEN MENDOZA Referring Unavailable MIRYAM ALDRICH Attending Unavailable MARICARMEN MENDOZA Referring Unavailable ANDRESSA ALANIS Attending Unavailable ANDRESSA ALANIS Referring Unavailable MIRYAM ALDRICH Attending Unavailable MARICARMEN MENDOZA Referring Unavailable Medications Current Medications Medication Drug Class(es) Dates Sig (Normalized) Sig (Original) acetaminophen 325 mg / butalbital 50 mg / caffeine 40 mg oral tablet (20 sources) Barbiturate, Central Nervous System Stimulant, Methylxanthine Start: 08-14-2023 butalbital-aceta minophen-caffein e 50-325-40 MG tablet 08/14/2023 Active Start: 08-14-2023 take 1-2 tablets by mouth every six hours for headache [id number]-vbjsfdqthqzea-ecrsfrsc 50-325 -40 MG tablet take 1 TO 2 tablets by mouth every 6 hours if needed for headache 08/14/2023 Active acetaminophen 325 mg / HYDROcodone bitartrate 5 mg oral tablet (14 sources) Opioid Agonist Start: 05-01-2024 End: 05-11-2024 take 1 tablet by mouth every six hours for pain HYDROcodone-acetaminophen (Blanchard) 5-325 MG tablet Indications: S/P total knee arthroplasty, right Take 1 tablet by mouth every 6 (six) hours if needed for severe pain for up to 5 days 20 tablet 05/06/2024 05/11/2024 Active Start: 04-21-2024 End: 04-29-2024 take 1 tablet by mouth every six hours for pain HYDROcodone-acetaminophen (Blanchard) 10-325 MG tablet Indications: S/P total knee arthroplasty, right Take 1 tablet by mouth every 6 (six) hours if needed for severe pain for up to 5 days 20 tablet 04/24/2024 04/29/2024 [id number] 200 actuat albuterol 0.09 mg/actuat metered dose inhaler (20 sources) beta2-Adrenergic Agonist Start: 03-09-2023 take 2 puff(s) by inhalation four times daily as needed for wheezing albuterol (PROVENTIL HFA;VENTOLIN HFA) 90 mcg/actuation inhaler Indications: Mild intermittent asthma without complication Inhale 2 puffs 4 (four) times a day as needed for wheezing. 18 g 3 03/09/2023 Active Start: 09-05-2022 End: 02-15-2024 take 2 puff(s) by inhalation four times daily as needed albuterol HFA 90 mcg/act inhaler Inhale 2 puffs 4 (four) times a day as needed. 09/05/2022 02/15/2024 Discontinued (Therapy completed) albuterol HFA 90 mcg/act inhaler every 4 (four) hours Active amoxicillin 500 mg oral tablet (7 sources) Penicillin-class Antibacterial Start: 08-05-2024 take 4 tablets by mouth once at mealtime amoxicillin (Amoxil) 500 MG tablet Indications: S/P total knee arthroplasty, right 4 tabs PO once 30-60 mins before procedure with food 4 tablet 3 08/05/2024 Active atorvastatin 10 mg oral tablet (20 sources) HMG-CoA Reductase Inhibitor Start: 09-05-2022 take 1 tablet by mouth in the morning atorvastatin (Lipitor) 10 MG tablet Take 10 mg by mouth in the morning. 09/05/2022 Active B Complex-Folic Acid (SUPER B COMPLEX MAXI PO) (20 sources) B Complex-Folic Acid (SUPER B COMPLEX MAXI PO) Active B Complex-Folic Acid (SUPER B COMPLEX MAXI PO) Super B Complex Active 24 hr buPROPion hydrochloride 300 mg extended release oral tablet (20 sources) Aminoketone Start: 09-23-2024 buPROPion XL ( WELLBUTRIN XL) 300 mg 24 hr tablet Indications: Routine general medical examination at a health care facility TAKE 1 TABLET EVERY MORNING 90 tablet 3 09/23/2024 Active Start: 08-27-2023 End: 09-23-2024 buPROPion XL (WELLBUTRIN XL) 300 mg 24 hr tablet Indications: Routine general medical examination at a health care facility take 1 tablet every morning 90 tablet 3 08/27/2023 09/23/2024 Discontinued Start: 08-21-2022 take 1 tablet by jose alfredo th every twenty-four hours in the morning buPROPion XL (Wellbutrin XL) 300 MG 24 hr tablet Take 1 tablet by mouth in the morning. 08/21/2022 Active Calcium Carbonate (20 sources) Start: 03-29-2024 calcium carbon ate (Calcium 600) Active PO March 29, 2024 12:00am calcium carbonat e (Tums) 500 MG chewable tablet Chew 500 mg Daily Active Calcium Carbonate / vitamin D3 (3 sources) calcium carbonate/vitamin D3 (CALCIUM 600 + D,3, ORAL) Take by mouth daily. Active cephalexin 500 mg oral capsule (1 source) Cephalosporin Antibacterial Start: take 1 capsule by mouth every eight hours Cephalexin 500 MG 1 capsule Orally tid for 10 day(s) Apr, Active cetirizine hydrochloride 10 mg oral tablet (6 sources) Histamine-1 Receptor Antagonist take 1 tablet by mouth in the morning cetirizine (ZyrTEC) 10 MG tablet Take 10 mg by mouth in the morning. Active ferrous sulfate (20 sources) Start: ferrous sulfate (Iron (ferrous sulfate)) Active PO March 29, 2024 12:00am ferrous sulfate ER 142 mg ER tablet Take by mouth in the morning. Active FERROUS SULFATE (IRON ORAL) Take by mouth daily. Active Iron (1 source) Iron CR 50 MG Or ally Active levothyroxine sodium 0.05 mg oral tablet (20 sources) l-Thyroxine Start: 08-21-2022 End: 08-25-2024 take 1 tablet by mouth in the morning Synthroid 50 MCG tablet Take 1 tablet by mouth in the morning. 08/21/2022 Active take 1 tablet by jose alfredo th every twenty-four hours Synthroid 25 MCG 1 tablet Orally Once a day Active montelukast 10 mg oral tablet (20 sources) Leukotriene Receptor Antagonist Start: 08-27-2023 End: 08-25-2024 take 1 tablet by mouth at bedtime montelukast (Singulair) 10 MG tablet Take 1 tablet by mouth at bedtime 08/27/2023 Active take 1 tablet by jose alfredo th every twenty-four hours Singulair 10 MG 1 tablet in the evening Orally Once a day Active Multiple Vitamin (multivitamin) capsule (20 sources) take 1 capsule by mouth once daily Multiple Vitamin (multivitamin) capsule Take 1 capsule by mouth Daily Active kqhqwwaxtfyp-fzf-csun- FA-vit K (Adults Multivitamin) (1 source) Start: gqiidvvfxmeo-vuq-ggdc -FA-vit K (Adults Multivitamin) Active PO March 29, 2024 12:00am mupirocin 0.02 mg/mg topical ointment (1 source) RNA Synthetase Inhibitor Antibacterial Start: Mupirocin 2 % 1 application to rash Twice a day for 7 days Apr, Active nabumetone 500 mg oral tablet (6 sources) Nonsteroidal Anti-inflammatory Drug Start: End: take 1 tablet by mouth in the morning nabumetone (Relafen) 500 MG tablet Indications: Arthritis of right knee Take 1 tablet (500 mg) by mouth in the morning and 1 tablet (500 mg) before bedtime. Do all this for 14 days. 28 tablet 02/06/2024 02/20/2024 Active olopatadine 2 mg/ml ophthalmic solution (3 sources) Histamine-1 Receptor Inhibitor Start: take 1 drop(s) into the eye(s) in the morning olopatadine (PATADAY) 0.2 % drops Administer 1 drop to both eyes in the morning. 01/31/2019 Active oxyCODONE hydrochloride 5 mg oral tablet (10 sources) Opioid Agonist Start: End: take 1 tablet by mouth every six hours for pain oxyCODONE (Roxicodone) 5 MG immediate release tablet Indications: Post-op pain Take 1 tablet (5 mg) by mouth every 6 (six) hours if needed for moderate pain for up to 5 days 20 tablet 04/14/2024 04/19/2024 Active sertraline 50 mg oral tablet (20 sources) Serotonin Reuptake Inhibitor Start: End: sertraline (Zoloft) 50 MG tablet 01/21/2024 Active End: 02-15-2024 take 1 tablet by mouth in the morning sertraline (Zoloft) 25 MG tablet Take 25 mg by mouth in the morning. 02/15/2024 Discontinued (Therapy completed) sulfamethoxazole 800 mg / trimethoprim 160 mg oral tablet (1 source) Dihydrofolate Reductase Inhibitor Antibacterial, Sulfonamide Antimicrobial Start: 06-09-2024 End: 06-16-2024 take 1 tablet by mouth once in the morning sulfamethoxazole-trimethoprim (BACTRIM DS) 800-160 mg per tablet Take 1 tablet by mouth in the morning and 1 tablet before bedtime. Do all this for 7 days. 14 tablet 06/09/2024 06/16/2024 Active traMADol hydrochloride 50 mg oral tablet (20 sources) Opioid Agonist Start: 05-14-2024 End: 10-17-2024 take 1 tablet by mouth every six hours for pain traMADol (Ultram) 50 MG tablet Indications: S/P total knee arthroplasty, right Take 1 tablet (50 mg) by mouth every 6 (six) hours if needed for severe pain for up to 5 days 15 tablet 05/14/2024 05/19/2024 Active Vitamin B Complex (1 source) Start: 03-29-2024 take 1 capsule by mouth once daily Vitamin B Complex Active 1 CAP PO Daily March 29, 2024 12:00am administer with a meal vitamin B complex/folic acid (SUPER B MAXI COMPLEX ORAL) (3 sources) vitamin B comple x/folic acid (SUPER B MAXI COMPLEX ORAL) Take by mouth daily. Active Completed/Discontinued Medications Medication Drug Class(es) Dates Sig (Normalized) Sig (Original) cranberry preparation 50 mg chewable tablet (10 sources) Non-Standardized Food Allergenic Extract, Non-Standardized Plant Allergenic Extract End: Cranberry 50 MG chewable tablet Cranberry 03/13/2024 Discontinued (Med list cleanup) methylPREDNISolone acetate 20 mg/ml injectable suspension (9 sources) Corticosteroid Start: End: methylPREDNISolone Acetate (DEPO-Medrol) injection 20 mg Start: 03-31-2024 End: 03-31-2024 20 mg, Once PRN Procedure, S tarting on Sun03/31/24 at 1247, For 1 dose Start: 02-06-2024 End: 02-15-2024 methylPREDNISolone (Medrol D ospak) 4 MG tablets Indications: Arthritis of right knee Follow schedule on package instructions 21 tablet 02/06/2024 02/15/2024 Discontinued (Therapy completed) Start: 02-06-2024 methylPREDNISo lone (Medrol Dospak) 4 MG tablets Indications: Arthritis of right knee Follow schedule on package instructions 21 tablet 02/06/2024 Active Start: 03-22-2021 methylPREDNISo lone 4 MG as directed Orally Once a day for 6 days Mar, Active Problems Active Problems Problem Classification Problem Date Documented Date Episodic/Chronic Asthma (20 sources) Exacerbation of mild persistent asthma; Translations: [Mild persistent asthma with (acute) exacerbation] Onset: 11-12-2017 02-15-2024 Chronic Disorders of lipid metabolism (4 sources) Mixed hyperlipidemia; Translations: [MIXED HYPERLIPIDEMIA] Onset: 05-05-2022 Chronic Essential hypertension (20 sources) Benign essential hypertension; Translations: [Essential (primary) hypertension] Onset: 05-29-2017 02-15-2024 Chronic Mood disorders (20 sources) Depressive disorder; Translations: [Depression] Onset: 02-15-2024 02-15-2024 Chronic Osteoarthritis (20 sources) Osteoarthritis of left knee joint; Translations: [Unilateral primary osteoarthritis, left knee] Onset: 02-15-2024 02-15-2024 Chronic Other connective tissue disease (20 sources) History of total knee arthroplasty; Translations: [Presence of right artificial knee joint] Onset: 04-13-2024 04-13-2024 Chronic Other connective tissue disease (1 source) Presence of right artificial knee joint; Translations: [Presence of right artificial knee joint] Onset: 09-23-2024 Chronic Other connective tissue disease (4 sources) Medial epicondylitis of left humerus; Translations: [Medial epicondylitis, left elbow] 04-02-2024 Episodic Other connective tissue disease (1 source) Trigger finger, unspecified finger; Translations: [Trigger finger, unspecified finger] Onset: 09-23-2024 Episodic Other connective tissue disease (2 sources) Trigger thumb of left hand; Translations: [Trigger thumb, left thumb] 10-17-2024 Episodic Other nervous system disorders (20 sources) Difficulty walking; Translations: [Difficulty in walking, not elsewhere classified] Onset: 04-13-2024 04-13-2024 Chronic Other nervous system disorders (2 sources) Postoperative pain ; Translations: [Other acute postprocedural pain] 04-08-2024 Episodic Other non-traumatic joint disorders (20 sources) Arthropathy; Translations: [Arthropathy, unspecified] Onset: 02-15-2024 02-15-2024 Chronic Other non-traumatic joint disorders (1 source) Arthritis of right knee 04-08-2024 Chronic Other non-traumatic joint disorders (8 sources) Pain in right knee; Translations: [Pain in joint, lower leg] 03-13-2024 Episodic Other non-traumatic joint disorders (2 sources) Pain in elbow; Translations: [Pain in left elbow] 03-31-2024 Episodic Other screening for suspected conditions (not mental disorders or infectious disease) (8 sources) Encounter for screening mammogram for malignant neoplasm of breast; Translations: [Encounter for screening for malignant neoplasm of cervix] Onset: 12-21-2021 Episodic Residual codes; unclassified (1 source) Family history of malignant neoplasm of breast; Translations: [FAMILY HX MALIG NEOPLASM OF BREAST] Onset: 07-16-2022 Episodic Thyroid disorders (20 sources) Hypothyroidism, unspecified; Translations: [Acquired hypothyroidism] Onset: 05-18-2017 02-15-2024 Chronic Unclassified (1 source) right knee degenerative joint dissease Onset: 04-09-2024 Unclassified (1 source) Annual Exam Onset: 03-20-2024 Past or Other Problems Problem Classification Problem Date Documented Date Episodic/Chronic Deficiency and other anemia (20 sources) Anemia; Translations: [Anemia, unspecified] Onset: 02-15-2024 02-15-2024 Episodic Immunizations and screening for infectious disease (1 source) Encounter for screening for human papillomavirus (HPV); Translations: [ENC SCREENING HUMAN PAPILLOMAVIRUS] Onset: 12-22-2021 Episodic Mood disorders (3 sources) Mood disorders Onset: 03-20-2024 03-20-2024 Other nervous system disorders (20 sources) Other acute postprocedural pain; Translations: [Pain in joint, lower leg] Onset: 04-13-2024 04-13-2024 Episodic Other nutritional; endocrine; and metabolic disorders (20 sources) Obesity; Translations: [Obesity, unspecified] Onset: 02-15-2024 Resolved: 10-16-2024 02-15-2024 Chronic Skin and subcutaneous tissue infections (1 source) Impetigo, unspecified Onset: 05-08-2021 Resolved: 05-08-2021 Episodic Unclassified (2 sources) Trigger point injection 04-02-2024 Unclassified (3 sources) Onset: 09-23-2021 09-23-2021 Results Test Name Value Interpretation Reference Range Facility XR Knee - right 1 or 2 Views on 09-18-2024 Imaging Result: 09/18/2024: Standing AP and LAT [...] dislocation. Impression: Stable RT total knee replacement. Maricarmen Mendoza STRIP MILL OPERATOR-SENIOR DATA DEVELOPER [facility] Radiology Study observation (narrative) [facility] [employer] XR Knee - right 1 or 2 Views on 06-25-2024 Imaging Result: AP and lateral of right knee showed surgical position and alignment of prosthetic components without evidence of loosening or wear to the femoral, tibial, or patellar components. The alignment appeared to be anatomic. There was no evidence of accelerated or asymmetric wear to the patellar button or tibial tray. There was no evidence of fracture and/or dislocation. Impression: Unremarkable right total knee arthroplasty. [facility] [employer] XR Knee - right 1 or 2 Views Ordered By: Jr. Azevedo on 06-25-2024 [facility] [employer] Work Phone: XR Knee - right 1 or 2 Views on 06-23-2024 Radiology Study observation [facility]narrative[facility] - right 1 or 2 Views on 05-14-2024 Imaging Result: AP and lateral of right knee showed surgical position and alignment of prosthetic components without evidence of loosening or wear to the femoral, tibial, or patellar components. The alignment appeared to be anatomic. There was no evidence of accelerated or asymmetric wear to the patellar button or tibial tray. There was no evidence of fracture and/or dislocation. Impression: Unremarkable right total knee arthroplasty. [facility] [employer] Radiology Study observation (narrative) [facility] [employer] XR Knee - right 1 or 2 Views Ordered By: Jr. Azevedo on 05-14-2024 [facility] [employer] Work Phone: HCG ( test) Ql (U)o n 04-09-2024 Beta HCG ( test) Ql (U) Negative Normal NEG [facility] Comment on above: Performed By: #### 2 106-3 #### [facility] ([id number]) [address] [place] [address], [place] [address] XR Elbow - left 2 [facility] Imaging Result: Xrays AP and LAT of the left elbow performed on March 31, 2024 demonstrates an avulsion fracture of the medial epicondyle. Impression Avulsion fracture of medial epicondyle Andressa Alanis COLLECTIONS CLERK [facility] XR Elbow - left 2 ViewsOrder ed By: Isrrael Desouza on 04-01-2024 [facility] Work Phone: No Panel Informationon 03-31 Andressa Alanis, ALLI 04/02/2024 8:13 AM Trigger Point Injection (CPT 7[address] [place] [address]) on 03/31/2024 12:47 PM Indications: pain Details: 25 G needle Medications: 20 mg methylPREDNISolone Acetate 20 MG/ML Consent was given by the patient. Patient was prepped and draped in the usual sterile fashion. [facility] XR Elbow - left 2 [employer] Radiology Study observation (narrative) [facility] Lipid 1996 panelon Cholesterol [Mass/Vol] 183 mg/dL Normal 150-200 [facility] Comment on above: Performed By: #### 2 4331-1, THYR #### [facility] ([id number]) [address] [place] [address], [address] [place] [address] Cholesterol in HDL [Mass/Vol] 45 mg/dL Normal >39 [facility] Comment on above: Result Comment: HDL <40 mg/dL - High Risk HDL > or = 40mg/dL- Desirable HDL >60 mg/dL - Negative Risk Performed By: #### 2 4331-1, THYR #### [facility] ([id number]) [address], [address] [place] [address] Cholesterol in LDL [Mass/Vol] 100 mg/dL Normal <130 [facility] Comment on above: Result Comment: LDL <100 mg/dL - Desirable LDL >160 mg/dL - High Risk Performed By: #### 2 4331-1, THYR #### [facility] ([id number]) [address], [address] [place] [address] Cholesterol in VLDL [Mass/Vol] 38 mg/dL High 0-30 [facility] Comment on above: Performed By: #### 2 4331-1, THYR #### [facility] ([id number]) [address], [facility] [address] [place] [address] CHOLESTEROL:HDL 4.1 Normal 1.0-5.0 [facility] Comment on above: Performed By: #### 2 4331-1, THYR #### [facility] ([id number]) [address], [address] [place] [address] Triglyceride [Mass/Vol] 188 mg/dL High 27-150 [facility] Comment on above: Performed By: #### 2 4331-1, THYR #### [facility] ([id number]) [address], [address] [place] [address] THYROID PROFILEon 03-20-2024 Free T4 [Mass/Vol] 0.93 ng/dL Normal 0.61-1.60 [facility] Comment on above: Performed By: #### 2 4331-1, THYR #### [facility] ([id number]) [address], [facility] [address] [place] [address] TSH 1.77 uIU/mL Normal 0.49-4.67 [facility] Comment on above: Performed By: #### 2 4331-1, THYR #### [facility] ([id number]) [address], [address] [place] [address] BASIC METABOLIC PANLon 03-13 Anion gap [Moles/Vol] 7 mmol/L Normal 5-15 [facility] Comment on above: Performed By: #### C BCA, BMP #### [facility] ([id number]) [address], [address] [place] [address] Calcium [Mass/Vol] 9.6 mg/dL Normal 8.5-10.5 [facility] Comment on above: Performed By: #### C BCA, BMP #### [facility] ([id number]) [address], [address] [place] [address] Chloride [Moles/Vol] 104 mmol/L Normal 98-109 [facility] [place] Comment on above: Performed By: #### C BCA, BMP #### [facility] ([id number]) [address], [address] [place] [address] CO2 [Moles/Vol] 30 mmol/L Normal 22-32 [facility] [place] Comment on above: Performed By: #### C BCA, BMP #### [facility] ([id number]) [address] [address] [place] [address] Creatinine [Mass/Vol] 0.97 mg/dL Normal 0.40-1.00 [facility] [place] Comment on above: Result Comment: METH OD TRACEABLE TO IDMS STANDARD Performed By: #### C BCA, BMP #### [facility] ([id number]) [address], [address] [place] [address] GFR/1.73 sq M.predicted among non-blacks MDRD (S/P/Bld) [Vol rate/Area] 68 mL/min/{1.73_m2} Normal >59 [facility] [place] Comment on above: Result Comment: Reported eGFR is based on the CKD-EPI 2020 equation that does not use a race coefficient. Performed By: #### C BCA, BMP #### [facility] ([id number]) [address] [address] [place] [address] Glucose [Mass/Vol] 99 mg/dL Normal 65-99 [facility] Comment on above: Performed By: #### C BCA, BMP #### [facility] ([id number]) [address], [address] [place] [address] Potassium [Moles/Vol] 3.9 mmol/L Normal 3.5-5.0 [facility] [place] Comment on above: Performed By: #### C BCA, BMP #### [facility] ([id number]) [address], [address] [place] [address] Sodium [Moles/Vol] 141 mmol/L Normal 134-146 [facility] Comment on above: Performed By: #### C BCA, BMP #### [facility] ([id number]) [address], [address] [place] [address] Urea nitrogen [Mass/Vol] 9 mg/dL Normal 5-23 [facility] [place] Comment on above: Performed By: #### C BCA, BMP #### [facility] ([id number]) [address], [address] [place] [address] CBC AND AUTO DIFFon 03-13-20 24 ABSOLUTE BASOPHIL 0.0 X10E9/L Normal 0.0-0.2 [facility] Comment on above: Performed By: #### C BCA, BMP #### [facility] ([id number]) [address], [address] [place] [address] ABSOLUTE NEUTROPHIL 6.4 X10E9/L Normal 1.5-6.6 [facility] [place] Comment on above: Performed By: #### C BCA, BMP #### [facility] ([id number]) [address], [address] [place] [address] Basophils/100 WBC (Bld) 0.3 % Normal [facility] [place] Comment on above: Performed By: #### C BCA, BMP #### [facility] ([id number]) [address], [address] [place] [address] Eosinophils (Bld) [#/Vol] 0.2 10*3/uL Normal 0.0-0.4 [facility] [place] Comment on above: Performed By: #### Byron POWELL, BMP #### [facility] ([id number]) [address], [facility] [address] [place] [address] Eosinophils/100 WBC (Bld) 2.4 % Normal [facility] [place] Comment on above: Performed By: #### Byron POWELL, BMP #### [facility] ([id number]) [address], [facility] [address] [place] [address] Erythrocyte distribution width (RBC) [Ratio] 13.6 % Normal 11.5-15.0 [facility] [place] Comment on above: Performed By: #### Byron POWELL, BMP #### [facility] ([id number]) [address], [facility] [address] [place] [address] Hematocrit (Bld) [Volume fraction] 41.7 % Normal 35-47 [facility] [place] Comment on above: Performed By: #### Byron POWELL, BMP #### [facility] ([id number]) [address], [facility] [address] [place] [address] Hemoglobin (Bld) [Mass/Vol] 14.6 g/dL Normal 11.7-15.5 [facility] [place] Comment on above: Performed By: #### Byron POWELL, BMP #### [facility] ([id number]) [address] [address] [place] [address] Lymphocytes (Bld) [#/Vol] 2.0 10*3/uL Normal 1.0-3.5 [facility] [place] Comment on above: Performed By: #### Byron POWELL, BMP #### [facility] ([id number]) [address] [address] [place] [address] Lymphocytes/100 WBC (Bld) 21.1 % Normal [facility] [place] Comment on above: Performed By: #### C ANDRE, BMP #### [facility] ([id number]) [address], [address] [place] [address] MCH (RBC) [Entitic mass] 32.2 pg Normal 27-34 [facility] [place] Comment on above: Performed By: #### C ANDRE, BMP #### [facility] ([id number]) [address], [address] [place] [address] MCHC (RBC) [Mass/Vol] 35.0 g/dL Normal 32-36 [facility] [place] Comment on above: Performed By: #### C ANDRE, BMP #### [facility] ([id number]) [address], [address] [place] [address] MCV (RBC) [Entitic vol] 92 fL Normal 80-100 [facility] [place] Comment on above: Performed By: #### Byron POWELL, BMP #### [facility] ([id number]) [address], [address] [place] [address] Monocytes (Bld) [#/Vol] 0.7 10*3/uL Normal 0-0.9 [facility] [place] Comment on above: Performed By: #### C ANDRE, BMP #### [facility] ([id number]) [address], [address] [place] [address] Monocytes/100 WBC (Bld) 7.7 % Normal [facility] [place] Comment on above: Performed By: #### C ANDRE, BMP #### [facility] ([id number]) [address], [address] [place] [address] Neutrophils/100 WBC (Bld) 68.5 % Normal [facility] [place] Comment on above: Performed By: #### Byron POWELL, BMP #### [facility] ([id number]) [address], [address] [place] [address] Platelet mean volume (Bld) [Entitic vol] 10.0 fL Normal 7-12 [facility] [place] Comment on above: Performed By: #### C BCA, BMP #### [facility] ([id number]) [address], [address] [place] [address] Platelets (Bld) [#/Vol] 206 10*3/uL Normal 150-450 [facility] [place] Comment on above: Performed By: #### C BCA, BMP #### [facility] ([id number]) [address], [address] [place] [address] RBC COUNT 4.53 X10E12/L Normal 3.80-5.20 [facility] [place] Comment on above: Performed By: #### C BCA, BMP #### [facility] ([id number]) [address], [facility] [address] [place] [address] WBC (Bld) [#/Vol] 9.4 10*3/uL Normal 4.0-11.0 [facility] Comment on above: Performed By: #### C BCA, BMP #### [facility] ([id number]) [address], [facility] [address] [place] [address] XR Knee - right 1 or 2 Views on 02-07-2024 Imaging Result: February 06, 2024 x-rays AP weight-bearing bilateral knees and lateral of the right knee demonstrate medial compartment collapse with [id number] bilateral knees and varus alignment with subchondral sclerosis marginal osteophytes. No fractures noted. Impression: Advanced arthritis bilateral knees Davon Desouza D.O. [facility] [employer] XR Knee - right 1 or 2 Views Ordered By: Isrrael Desouza on 02-07-2024 [employer] Work Phone: XR Knee - right 1 or 2 Views on 02-06-2024 Radiology Study observation (narrative) [employer] MG MAMM SCREEN 3D NONA CADon 07-13-2022 MG MAMM SCREEN 3D NONA CAD Patient: STACEY MORELOS Exam Date: 07/13/2022 : 1965 Gender:F Ordering : DR MANUEL ORELLANA . Admission #: [id number] Family : Order #: [id number] CLICK HERE TO VIEW EXAM RADIOLOGY REPORT PROCEDURE: MAMMOGRAM SCREENING 3D BILATERAL CAD COMPARISON: MG MAMM SCREEN NONA W CAD, 05/18/2020. MG MAMM SCREEN 3D NONA CAD, 06/27/2021. INDICATIONS: Screening mammography Calculator Name NCI Breast Cancer Risk Assessment Tool 5 Year Breast Cancer Risk 0.80% Lifetime Breast Cancer Risk 6.00% Personal Breast Cancer No Personal Ovarian Cancer No Treatments None Family Cancers Grandmother-maternal with breast cancer at age 50. LOCATION: [facility] BREAST COMPOSITION: Scattered areas fibroglandular density. FINDINGS: DIAGNOSTIC CATEGORY 2--BENIGN FINDING. NO CHANGE FROM COMPARISON. Scattered benign-appearing calcifications are present. Scattered benign-appearing lymph nodes are present. RIGHT BREAST: No significant suspicious finding. Stable focal asymmetry upper outer quadrant, mid breast. LEFT BREAST: No significant suspicious finding. RECOMMENDATIONS: ROUTINE MAMMOGRAM AND CLINICAL EVALUATION IN 12 MONTHS. PLEASE NOTE: A NORMAL MAMMOGRAM DOES NOT EXCLUDE THE POSSIBILITY OF BREAST CANCER. A CLINICALLY SUSPICIOUS PALPABLE LUMP SHOULD BE BIOPSIED. Dictated by: Olya Gonzales MD on 07/13/2022 at 12:11 Approved by: Olya Gonzales MD on 07/13/2022 at 12:13 Normal [facility] GGTon 05-05-2022 Gamma glutamyl transferase [Catalytic activity/Vol] 41 U/L Normal 8-55 [facility] Comment on above: Performed By: #### A ST, LIPID, ALT, GGT #### [facility] [address] [place] [address] Dr. Eddie Acuna LIPID PROFILEon 05-05-2022 CHOL-HDL RATIO NORM SEE BELOW Normal [facility] Comment on above: Result Comment: 3.3 - 4.4 LOW RISK 4.4 - 7.1 AVERAGE RISK 7.1 - 11.0 MODERATE RISK >11.0 HIGH RISK Performed By: #### A ST, LIPID, ALT, GGT #### [facility] [address] [address] [address] Eddie Acuna Cholesterol [Mass/Vol] 181 mg/dL Normal <=200 [facility] Comment on above: Performed By: #### A ST, LIPID, ALT, GGT #### [facility] [address] [address] [address] Eddie Acuna Cholesterol in HDL [Mass/Vol] 54 mg/dL Normal 40-60 [facility] Comment on above: Performed By: #### A ST, LIPID, ALT, GGT #### [facility] [address] [address] [address] Eddie Acuna Cholesterol in LDL [Mass/Vol] 101.8 mg/dL Normal [facility] Comment on above: Performed By: #### A ST, LIPID, ALT, GGT #### [facility] [address] [address] [address] Eddie Acuna Cholesterol.total/ Cholesterol in HDL [Mass ratio] 3.4 {ratio} Normal [facility] Comment on above: Performed By: #### A ST, LIPID, ALT, GGT #### [facility] [address] [address] [address] Eddie Acuna HDL NORMAL > or = 60 mg/dl - LO W CARDIOVASCULAR RISK <40 mg/dl - HIGH CARDIOVASCULAR RISK Normal [facility] Comment on above: Performed By: #### A ST, LIPID, ALT, GGT #### [facility] [address] [address] [address] Eddie Acuna LDL CALC NORMAL SEE BELOW Normal [facility] Comment on above: Result Comment: <100 mg/dl OPTIMAL 100 - 129 mg/dl NEAR OR ABOVE OPTIMAL 130 - 159 mg/dl BORDERLINE HIGH 160 - 189 mg/dl HIGH >190 mg/dl VERY HIGH Performed By: #### A ST, LIPID, ALT, GGT #### [facility] [address] [address] [address] Eddie Acuna Triglyceride [Mass/Vol] 126 mg/dL Normal <=150 [facility] Comment on above: Performed By: #### A ST, LIPID, ALT, GGT #### [facility] [address] [place] [address] Dr. Eddie Acuna VLDL CALC 25.2 mg/dL Normal [facility] Comment on above: Performed By: #### A ST, LIPID, ALT, GGT #### [facility] [address] [address] [address] Eddie Acuna SGOTon 05-05-2022 AST [Catalytic activity/Vol] 16 U/L Normal 15-37 [facility] Comment on above: Performed By: #### C BC #### [facility] [address] [place] [address] Dr. [facility] ALT [Catalytic activity/Vol] 33 U/L Normal 14-59 [facility] Comment on above: Performed By: #### A ST, LIPID, ALT, GGT #### [facility] [address] [place] [address] Dr. Eddie Acuna CBC AUTO DIFFon 03-16-2022 BASO # 0.0 103/ul Normal 0.0-0.1 [facility] Comment on above: Performed By: #### C BC #### [facility] [address] [place] [address] Dr. Eddie Acuna Basophils/100 WBC (Bld) 0.4 % Normal 0.2-2.0 [facility] Comment on above: Performed By: #### C BC #### [facility] [address] [place] [address] Dr. Eddie Acuna EO # 0.2 103/ul Normal 0.0-0.7 [facility] Comment on above: Performed By: #### C BC #### [facility] [address] [place] [address] Dr. Eddie Acuna Eosinophils/100 WBC (Bld) 2.1 % Normal 0.9-7.0 [facility] Comment on above: Performed By: #### C BC #### [facility] [address] [place] [address] Dr. Eddie Acuna Erythrocyte distribution width (RBC) [Ratio] 12.1 % Normal 11.0-15.0 [facility] Comment on above: Performed By: #### C BC #### [facility] [address] [place] [address] Dr. Eddie Acuna Hematocrit (Bld) [Volume fraction] 41.2 % Normal 36.0-48.0 [facility] Comment on above: Performed By: #### C BC #### [facility] [address] [address] [address] Eddie Acuna Hemoglobin (Bld) [Mass/Vol] 13.9 g/dL Normal 12.0-16.0 [facility] Comment on above: Performed By: #### C BC #### [facility] [address] [address] [address] Eddie Acuna IG # 0.10 10e3/ul Critically high 0.00-0.03 [facility] Comment on above: Performed By: #### C BC #### [facility] [address] [place] [address] Dr. Eddie Acuna IG % 1.3 % Critically high 0.0-0.5 [facility] Comment on above: Performed By: #### C BC #### [facility] [address] [place] [address] Dr. Eddie Acuna LYMPH # 1.9 103/ul Normal 1.2-3.8 [facility] Comment on above: Performed By: #### C BC #### [facility] [address] [place] [address] Dr. Eddie Acuna Lymphocytes/100 WBC (Bld) 24.2 % Normal 20.5-60.0 [facility] Comment on above: Performed By: #### C BC #### [facility] [address] [place] [address] Dr. Eddie Acuna MANUAL DIFF REQ NO Normal [facility] Comment on above: Performed By: #### C BC #### [facility] [address] [place] [address] Dr. Eddie Acuna MCH (RBC) [Entitic mass] 31.0 pg Normal 26.7-34.0 [facility] Comment on above: Performed By: #### C BC #### [facility] [address] [place] [address] Dr. Eddie Acuna MCHC (RBC) [Mass/Vol] 33.7 g/dL Normal 29.9-35.2 [facility] Comment on above: Performed By: #### C BC #### [facility] [address] [place] [address] Dr. Eddie Acuna MCV (RBC) [Entitic vol] 91.8 fL Normal 81.0-99.0 [facility] Comment on above: Performed By: #### C BC #### [facility] [address] [place] [address] Dr. Eddie Acuna MONO # 0.6 103/ul Normal 0.3-0.8 [facility] Comment on above: Performed By: #### C BC #### [facility] [address] [place] [address] Dr. Eddie Acuna Monocytes/100 WBC (Bld) 7.3 % Normal 1.7-12.0 [facility] Comment on above: Performed By: #### C BC #### [facility] [address] [place] [address] Dr. Eddie Acuna NEUT # 5.1 103/ul Normal 1.4-6.5 [facility] Comment on above: Performed By: #### C BC #### [facility] [address] [place] [address] Dr. Eddie Acuna Neutrophils/100 WBC (Bld) 64.7 % Normal 43.0-75.0 [facility] Comment on above: Performed By: #### C BC #### [facility] [address] [place] [address] Dr. Eddie Acuna Platelet mean volume (Bld) [Entitic vol] 11.0 fL Normal 9.5-13.5 [facility] Comment on above: Performed By: #### C BC #### [facility] [address] [place] [address] Dr. Eddie Acuna PLT 200 103/ul Normal 150-450 [facility] Comment on above: Performed By: #### C BC #### [facility] [address] [place] [address] Dr. Eddie Acuna RBC 4.49 106/ul Normal 4.20-5.40 [facility] Comment on above: Performed By: #### C BC #### [facility] [address] [place] [address] Dr. Eddie Acuna WBC 7.9 103/ul Normal 4.0-11.0 [facility] Comment on above: Performed By: #### C BC #### [facility] [address] [address] [address] Eddie Acuna FREE T4on 03-16-2022 Free T4 [Mass/Vol] 0.89 ng/dL Normal 0.76-1.46 [facility] Comment on above: Performed By: #### F T4 #### [facility] [address] [address] [address] Eddie Acuna LIPID PROFILEon 03-16-2022 CHOL-HDL RATIO NORM SEE BELOW Normal [facility] Comment on above: Result Comment: 3.3 - 4.4 LOW RISK 4.4 - 7.1 AVERAGE RISK 7.1 - 11.0 MODERATE RISK >11.0 HIGH RISK Performed By: #### C MP, TSH, LIPID #### [facility] [address] [address] [address] Eddie Acuna Cholesterol [Mass/Vol] 248 mg/dL Critically high <=200 [facility] Comment on above: Performed By: #### C MP, TSH, LIPID #### [facility] [address] [address] [address] Eddie Acuna Cholesterol in HDL [Mass/Vol] 46 mg/dL Normal 40-60 [facility] Comment on above: Performed By: #### C MP, TSH, LIPID #### [facility] [address] [address] [address] Eddie Acuna Cholesterol in LDL [Mass/Vol] 172.0 mg/dL Normal [facility] Comment on above: Performed By: #### C MP, TSH, LIPID #### [facility] [address] [address] [address] Eddie Acuna Cholesterol.total/ Cholesterol in HDL [Mass ratio] 5.4 {ratio} Normal [facility] Comment on above: Performed By: #### C MP, TSH, LIPID #### [facility] [address] [address] [address] Eddie Acuna HDL NORMAL > or = 60 mg/dl - LO W CARDIOVASCULAR RISK <40 mg/dl - HIGH CARDIOVASCULAR RISK Normal [facility] Comment on above: Performed By: #### C MP, TSH, LIPID #### [facility] [address] [address] [address] Eddie Acuna LDL CALC NORMAL SEE BELOW Normal [facility] Comment on above: Result Comment: <100 mg/dl OPTIMAL 100 - 129 mg/dl NEAR OR ABOVE OPTIMAL 130 - 159 mg/dl BORDERLINE HIGH 160 - 189 mg/dl HIGH >190 mg/dl VERY HIGH Performed By: #### C MP, TSH, LIPID #### [facility] [address] [address] [address] Eddie Acuna Triglyceride [Mass/Vol] 150 mg/dL Normal <=150 [facility] Comment on above: Performed By: #### C MP, TSH, LIPID #### [facility] [address] [address] [address] Eddie Acuna VLDL CALC 30.0 mg/dL Normal [facility] Comment on above: Performed By: #### C MP, TSH, LIPID #### [facility] [address] [address] [address] Eddie Acuna PROF 14(COMP METB)on 022 Albumin [Mass/Vol] 3.8 g/dL Normal 3.4-5.0 [facility] Comment on above: Performed By: #### C MP, TSH, LIPID #### [facility] [address] [address] [address] Eddie Acuna Albumin/Globulin [Mass ratio] 1.1 {ratio} Normal [facility] Comment on above: Performed By: #### C MP, TSH, LIPID #### [facility] [address] [address] [address] Eddie Acuna ALP [Catalytic activity/Vol] 88 U/L Normal 46-116 [facility] Comment on above: Performed By: #### C MP, TSH, LIPID #### [facility] [address] [address] [address] Eddie Acuna ALT [Catalytic activity/Vol] 29 U/L Normal 14-59 [facility] Comment on above: Performed By: #### C MP, TSH, LIPID #### [facility] [address] [address] [address] Eddie Acuna Anion gap [Moles/Vol] 7.7 mmol/L Normal [facility] Comment on above: Performed By: #### C MP, TSH, LIPID #### [facility] [address] [address] [address] Eddie Acuna AST [Catalytic activity/Vol] 10 U/L Critically low 15-37 [facility] Comment on above: Performed By: #### C MP, TSH, LIPID #### [facility] [address] [address] [address] Eddie Acuna Bilirubin [Mass/Vol] 0.3 mg/dL Normal 0.2-1.0 [facility] Comment on above: Performed By: #### C MP, TSH, LIPID #### [facility] [address] [address] [address] Eddie Acuna Calcium [Mass/Vol] 9.3 mg/dL Normal 8.5-10.1 [facility] Comment on above: Performed By: #### C MP, TSH, LIPID #### [facility] [address] [address] [address] Eddie Acuna Chloride [Moles/Vol] 105 mmol/L Normal 98-107 [facility] Comment on above: Performed By: #### C MP, TSH, LIPID #### [facility] [address] [address] [address] Eddie Acuna CO2 [Moles/Vol] 31.2 mmol/L Normal 21.0-32.0 [facility] Comment on above: Performed By: #### C MP, TSH, LIPID #### [facility] [address] [address] [address] Eddie Acuna Creatinine [Mass/Vol] 1.11 mg/dL Critically high 0.55-1.02 [facility] Comment on above: Performed By: #### C MP, TSH, LIPID #### [facility] [address] [address] [address] Eddie Acuna EGFR-AF MEXICAN >60 Normal >=60 [facility] Comment on above: Performed By: #### C MP, TSH, LIPID #### [facility] [address] [address] [address] Eddie Acuna EGFR-NON AF MEXICAN 51 mL/min/1.73m2 Critically low >=60 [facility] Comment on above: Performed By: #### C MP, TSH, LIPID #### [facility] [address] [address] [address] Eddie Acuna Globulin (S) [Mass/Vol] 3.4 g/dL Normal [facility] Comment on above: Performed By: #### C MP, TSH, LIPID #### [facility] [address] [address] [address] Eddie Acuna Glucose [Mass/Vol] 117 mg/dL Critically high 74-106 [facility] Comment on above: Performed By: #### C MP, TSH, LIPID #### [facility] [address] [place] [address] Dr. Eddie Acuna Potassium [Moles/Vol] 3.9 mmol/L Normal 3.5-5.1 [facility] Comment on above: Performed By: #### C MP, TSH, LIPID #### [facility] [address] [place] [address] Dr. Eddie Acuna Protein [Mass/Vol] 7.2 g/dL Normal 6.4-8.2 [facility] Comment on above: Performed By: #### C MP, TSH, LIPID #### [facility] [address] [place] [address] Dr. Eddie Acuna Sodium [Moles/Vol] 140 mmol/L Normal 136-145 [facility] Comment on above: Performed By: #### C MP, TSH, LIPID #### [facility] [address] [place] [address] Dr. Eddie Acuna Urea nitrogen [Mass/Vol] 15.0 mg/dL Normal 7.0-18.0 [facility] Comment on above: Performed By: #### C MP, TSH, LIPID #### [facility] [address] [place] [address] Dr. Eddie Acuna Urea nitrogen/Creatinin e [Mass ratio] 13.5 mg/mg Normal [facility] Comment on above: Performed By: #### C MP, TSH, LIPID #### [facility] [address] [place] [address] Dr. Eddie Acuna TSHon 03-16-2022 TSH 1.520 uIU/mL Normal 0.358-3.740 [facility] Comment on above: Performed By: #### C MP, TSH, LIPID #### [facility] [address] [place] [address] Dr. Eddie Acuna PAP ACOG PANEL 2: 30 to 65on 12-27-2021 . . Normal [facility] Comment on above: Result Comment: Perf ormed at: WB Performed By: #### [id number] #### [facility] [address] [place] [address] Dr. Eddie Acuna Age Gdln ACOG Testing 30-65 [facility] Comment on above: Performed By: #### [id number] #### [facility] [address] [place] [address] Dr. Eddie Acuna DIAGNOSIS: Comment Normal [facility] Comment on above: Result Comment: NEGA TIVE FOR INTRAEPITHELIAL LESION OR MALIGNANCY. Performed at: WB Performed By: #### [id number] #### [facility] [address] [place] [address] Dr. Eddie Acuna HPV Aptima Negative Normal Negative [facility] Comment on above: Result Comment: This nucleic acid amplification test detects fourteen high-risk HPV types (16,18,31,33,35,39,45,51,52,56,58,59,66,68) without differentiation. Performed at: =G Performed By: #### [id number] #### [facility] [address] [place] [address] Dr. Eddie Acuna Methodology: Comment Normal [facility] Comment on above: Result Comment: This liquid based ThinPrep(R) pap test was screened with the use of an image guided system. Performed at: WB Performed By: #### [id number] #### [facility] [address] [address] [address] Eddie Acuna Note: Comment Normal [facility] Comment on above: Result Comment: The Pap smear is a screening test designed to aid in the detection of premalignant and malignant conditions of the uterine cervix. It is not a diagnostic procedure and should not be used as the sole means of detecting cervical cancer. Both false-positive and false-negative reports do occur. . Performed at: WB Performed By: #### [id number] #### [facility] [address] [address] [address] Eddie Acuna Performed by: Comment Normal [facility] Comment on above: Result Comment: Maya Zaldivar, Water Safety Teacher (ASCP) Performed at: WB Performed By: #### [id number] #### [facility] [address] [place] [address] Dr. Eddie Acuna Specimen adequacy: Comment Normal [facility] Comment on above: Result Comment: Sati sfactory for evaluation. Endocervical and/or squamous metaplastic cells (endocervical component) are present. Performed at: WB Performed By: #### [id number] #### [facility] [address] [address] [address] Eddie Acuna Vital Signs Date Time Vital Sign Value Performing Clinician Facility 03-29-2024 13:25-0400 Body height 157.48 cm [facility] 03-29-2024 13:25-0400 Body mass index (BMI) [Ratio] 39.1 kg/m2 [facility] 03-29-2024 13:25-0400 Body weight 97.06 kg [facility] 03-29-2024 13:25-0400 Diastolic blood pressure 94 mm[Hg] [facility] 03-29-2024 13:25-0400 Heart rate 94 /min [facility] 03-29-2024 13:25-0400 Respiratory rate 18 /min [facility] 03-29-2024 13:25-0400 SaO2% (BldA) [Mass fraction] 69 % [facility] 03-29-2024 13:25-0400 Systolic blood pressure 155 mm[Hg] [facility] 03-13-2024 13:18-0400 Body height 157.5 cm Isrrael Desouza DO Work Phone: [facility] 03-13-2024 13:18-0400 Body mass index (BMI) [Ratio] 39.29 kg/m2 Isrrael Desouza DO Work Phone: [facility] 03-13-2024 13:18-0400 Body weight 97.43 kg Isrrael Desouza DO Work Phone: [facility] 02-19-2024 15:04-0400 Body height 157.5 cm Isrrael Shawston [employer] Work Phone: [facility] 02-19-2024 15:04-0400 Body mass index (BMI) [Ratio] 38.78 kg/m2 Isrrael Desouza [employer] Work Phone: [facility] 02-19-2024 15:04-0400 Body weight 96.16 kg Isrrael Desouza [employer] Work Phone: [facility] 05-08-2021 12:05-0500 Body height 157.48 cm [facility] Other [facility] Other 05-08-2021 12:05-0500 Body mass index (BMI) [Ratio] 39.32 kg/m2 [facility] Other [facility] Other 05-08-2021 12:05-0500 Body temperature 97.9 [degF] [facility] Other [facility] Other 05-08-2021 12:05-0500 Body weight 97.52 kg Hoda Vangie Other [facility] Other 05-08-2021 12:05-0500 Diastolic blood pressure 98 mm[Hg] [facility] Other [facility] Other 05-08-2021 12:05-0500 Respiratory rate 18 /min [facility] Other [facility] Other 05-08-2021 12:05-0500 SaO2% (BldA) [Mass fraction] 97 % [facility] Other [facility] Other 05-08-2021 12:05-0500 Systolic blood pressure 155 mm[Hg] [facility] Other [facility] Other Encounters Encounter Date Encounter Type Care Provider Facility Start: 10-17-2024 End: 10-17-2024 Carlitos Matthews Stepcarmen DO Work Phone: [facility] Start: 10-17-2024 End: 10-17-2024 Carlitos Matthews Stepcarmen DO Work Phone: [facility] Start: 10-17-2024 End: 10-17-2024 Office outpatient visit 25 minutes Jr. Froylan Azevedo DO Work Phone: [facility] Comment on above: Trigger thumb of lef t hand (Primary Dx) Start: 10-17-2024 End: 10-17-2024 ambulatory FROYLAN EMMANUEL Not Available Start: 09-23-2024 End: 09-23-2024 Patient encounter status Olya Rod MD Work Phone: [facility] Start: 09-23-2024 End: 09-23-2024 Refill Olya Rod MD Work Phone: [facility] Comment on above: Routine general medi radha examination at a health care facility Start: 09-23-2024 End: 09-23-[address] [facility] Start: 09-18-2024 End: 09-18-2024 Bamboo flowsheet Maricarmen Mendoza NP Work Phone: [facility] Start: 09-18-2024 End: 09-18-2024 Bamboo flowsheet Maricarmen Mendoza SOFTWARE TOOLS ENGINEER Work Phone: [facility] Start: 09-18-2024 End: 09-18-2024 ambulatory MARICARMEN MENDOZA Not Available Start: 09-18-2024 End: 09-18-2024 Office outpatient visit 15 minutes Maricarmen Mendoza SOFTWARE TOOLS ENGINEER Work Phone: [facility] Comment on above: S/P total knee arthr oplasty, right; Primary osteoarthritis of right knee Start: 08-25-2024 End: 08-25-2024 Refill Olya Rod MD [facility] Start: 08-12-2024 End: 08-12-2024 Telephone encounter Isrrael Desouza DO Work Phone: [facility] Comment on above: Work note Start: 07-16-2024 End: 07-16-2024 Bamboo flowsheet Miryam Kelbley DIRECTOR OF VIDEO ANALYTICS [facility] Start: 07-16-2024 End: 07-16-2024 Bamboo flowsheet Miryam Kelbley DIRECTOR OF VIDEO ANALYTICS [facility] Start: 07-16-2024 End: 07-16-2024 ambulatory Miryam Kelbley DIRECTOR OF VIDEO ANALYTICS [facility] Comment on above: Acute postoperative pain of right knee (Primary Dx); Primary osteoarthritis of right knee; Difficulty walking Start: 07-09-2024 End: 07-09-2024 Bamboo flowsheet Miryam Kelbley DIRECTOR OF VIDEO ANALYTICS [facility] Start: 07-09-2024 End: 07-09-2024 Bamboo flowsheet Miryam Kelbley DIRECTOR OF VIDEO ANALYTICS [facility] Start: 07-09-2024 End: 07-09-2024 ambulatory Miryam Kelbley DIRECTOR OF VIDEO ANALYTICS [facility] Comment on above: Acute postoperative pain of right knee (Primary Dx); Primary osteoarthritis of right knee; Difficulty walking Start: 07-04-2024 End: 07-04-2024 Bamboo flowsheet Miryam Kelbley DIRECTOR OF VIDEO ANALYTICS [facility] Start: 07-04-2024 End: 07-04-2024 Bamboo flowsheet Miryam Kelbley DIRECTOR OF VIDEO ANALYTICS [facility] Start: 07-04-2024 End: 07-04-2024 ambulatory Miryam Aldrich DIRECTOR OF VIDEO ANALYTICS [facility] Comment on above: Acute postoperative pain of right knee (Primary Dx); Primary osteoarthritis of right knee; Difficulty walking Start: 06-25-2024 End: 06-25-2024 Bamboo flowsheet Miryam Beachy DIRECTOR OF VIDEO ANALYTICS [facility] Start: 06-25-2024 End: 06-25-2024 Bamboo flowsheet Miryam Beachy DIRECTOR OF VIDEO ANALYTICS [facility] Start: 06-25-2024 End: 06-25-2024 ambulatory Miryam Aldrich DIRECTOR OF VIDEO ANALYTICS [facility] Comment on above: Acute postoperative pain of right knee (Primary Dx); Primary osteoarthritis of right knee; Difficulty walking Start: 06-23-2024 End: 06-23-2024 Bamboo flowsheet Andressa Alanis SOFTWARE TOOLS ENGINEER Work Phone: [facility] Start: 06-23-2024 End: 06-23-2024 Bamboo flowsabel Alanis SOFTWARE TOOLS ENGINEER Work Phone: [facility] Start: 06-23-2024 End: 06-23-2024 Postop follow up visit related to original px Andressa Alanis SOFTWARE TOOLS ENGINEER Work Phone: [facility] Comment on above: S/P total knee arthr oplasty, right (Primary Dx); Right knee pain, unspecified chronicity Start: 06-23-2024 End: 06-23-2024 ambulatory ANDRESSA ALANIS Not Available Start: 06-20-2024 End: 06-20-2024 Bamboo flowsheet Miryam Beachy DIRECTOR OF VIDEO ANALYTICS [facility] Start: 06-20-2024 End: 06-20-2024 Bamboo flowsheet Miryam Beachy DIRECTOR OF VIDEO ANALYTICS [facility] Start: 06-20-2024 End: 06-20-2024 ambulatory Miryam Beachy DIRECTOR OF VIDEO ANALYTICS [facility] Comment on above: Acute postoperative pain of right knee (Primary Dx); Primary osteoarthritis of right knee; Difficulty walking; Arthritis of right knee Start: 06-17-2024 End: 06-17-2024 Bamboo flowsheet Miryam Beachy DIRECTOR OF VIDEO ANALYTICS [facility] Start: 06-17-2024 End: 06-17-2024 Bamboo flowsheet Miryam Beachy DIRECTOR OF VIDEO ANALYTICS [facility] Start: 06-17-2024 End: 06-17-2024 ambulatory Miryam Aldrich DIRECTOR OF VIDEO ANALYTICS [facility] Comment on above: Acute postoperative pain of right knee (Primary Dx); Primary osteoarthritis of right knee; Difficulty walking Start: 06-13-2024 End: 06-13-2024 Bamboo flowsheet Miryam Aldrich DIRECTOR OF VIDEO ANALYTICS [facility] Start: 06-13-2024 End: 06-13-2024 Bamboo flowsheet Miryam Aldrich DIRECTOR OF VIDEO ANALYTICS [facility] Start: 06-13-2024 End: 06-13-2024 ambulatory Miryam Aldrich DIRECTOR OF VIDEO ANALYTICS [facility] Comment on above: Acute postoperative pain of right knee (Primary Dx); Primary osteoarthritis of right knee; Difficulty walking Start: 06-09-2024 End: 06-09-2024 Bamboo flowsheet Yvette Richardson PT Work Phone: [facility] Start: 06-09-2024 End: 06-09-2024 Bamboo flowsheet Yvette Richardson PT Work Phone: [facility] Start: 06-09-2024 End: 06-09-2024 Orders Only Olya Rod MD Work [facility] Comment on above: Acute postoperative pain of right knee (Primary Dx); Primary osteoarthritis of right knee; Difficulty walking Start: 06-05-2024 End: 06-05-2024 Bamboo flowsheet Isiah Brink DIRECTOR OF VIDEO ANALYTICS [facility] Start: 06-05-2024 End: 06-05-2024 Bamboo flowsheet Isiah Brink DIRECTOR OF VIDEO ANALYTICS [facility] Start: 06-05-2024 End: 06-05-2024 ambulatory Isiah Brink DIRECTOR OF VIDEO ANALYTICS [facility] Comment on above: Acute postoperative pain of right knee (Primary Dx); Primary osteoarthritis of right knee; Difficulty walking Start: 06-02-2024 End: 06-02-2024 Bamboo flowsheet Isiah Brink DIRECTOR OF VIDEO ANALYTICS [facility] Start: 06-02-2024 End: 06-02-2024 Bamboo flowsheet Isiah Brink DIRECTOR OF VIDEO ANALYTICS [facility] Start: 06-02-2024 End: 06-02-2024 ambulatory Isiah Brink DIRECTOR OF VIDEO ANALYTICS [facility] Comment on above: Acute postoperative pain of right knee (Primary Dx); Primary osteoarthritis of right knee; Difficulty walking Start: 05-30-2024 End: 05-30-2024 Bamboo flowsheet Miryam Aldrich DIRECTOR OF VIDEO ANALYTICS [facility] Start: 05-30-2024 End: 05-30-2024 Bamboo flowsheet Miryam Beachy DIRECTOR OF VIDEO ANALYTICS [facility] Start: 05-30-2024 End: 05-30-2024 ambulatory Miryam Aldrich DIRECTOR OF VIDEO ANALYTICS [facility] Comment on above: Acute postoperative pain of right knee (Primary Dx); Primary osteoarthritis of right knee; Difficulty walking Start: 05-28-2024 End: 05-28-2024 ambulatory Isiah Brink DIRECTOR OF VIDEO ANALYTICS [facility] Comment on above: Acute postoperative pain of right knee (Primary Dx); Primary osteoarthritis of right knee; Difficulty walking; Arthritis of right knee Start: 05-28-2024 End: 05-28-2024 Bamboo flowsheet Isiah Brink DIRECTOR OF VIDEO ANALYTICS [facility] Start: 05-28-2024 End: 05-28-2024 Bamboo flowsheet Isiah Brink DIRECTOR OF VIDEO ANALYTICS [facility] Start: 05-26-2024 End: 05-26-2024 Bamboo flowsheet Isiah Brink DIRECTOR OF VIDEO ANALYTICS [facility] Start: 05-26-2024 End: 05-26-2024 Bamboo flowsheet Isiah Brink DIRECTOR OF VIDEO ANALYTICS [facility] Start: 05-26-2024 End: 05-26-2024 ambulatory Isiah Brink DIRECTOR OF VIDEO ANALYTICS [facility] Comment on above: Acute postoperative pain of right knee (Primary Dx); Primary osteoarthritis of right knee; Difficulty walking; Arthritis of right knee Start: 05-23-2024 End: 05-27-2024 Telephone encounter Jr. Froylan Azevedo DO Work Phone: [facility] Comment on above: RT Knee Start: 05-23-2024 End: 05-23-2024 ambulatory Isiah Brink DIRECTOR OF VIDEO ANALYTICS [facility] Comment on above: Acute postoperative pain of right knee (Primary Dx); Primary osteoarthritis of right knee; Difficulty walking Start: 05-21-2024 End: 05-21-2024 Bamboo flowsheet Miryam Aldrich DIRECTOR OF VIDEO ANALYTICS [facility] Start: 05-21-2024 End: 05-21-2024 Bamboo flowsheet Miryam Aldrich DIRECTOR OF VIDEO ANALYTICS [facility] Start: 05-21-2024 End: 05-21-2024 ambulatory Miryam Aldrich DIRECTOR OF VIDEO ANALYTICS [facility] Comment on above: Acute postoperative pain of right knee (Primary Dx); Primary osteoarthritis of right knee; Difficulty walking Start: 05-19-2024 End: 05-19-2024 Bamboo flowsheet Yevtte Richardson PT Work Phone: [facility] Start: 05-19-2024 End: 05-19-2024 Bamboo flowsheet Yvette Richardson PT Work Phone: [facility] Start: 05-19-2024 End: 05-19-2024 ambulatory Yvette Richardson PT Work Phone: [facility] Comment on above: Acute postoperative pain of right knee (Primary Dx); Primary osteoarthritis of right knee; Difficulty walking Start: 05-16-2024 End: 05-16-2024 Bamboo flowsheet Isiah Clifton DIRECTOR OF VIDEO ANALYTICS [facility] Start: 05-16-2024 End: 05-16-2024 Bamboo flowsheet Isiah Clifton DIRECTOR OF VIDEO ANALYTICS [facility] Start: 05-16-2024 End: 05-16-2024 ambulatory Isiah Clifton DIRECTOR OF VIDEO ANALYTICS [facility] Comment on above: Primary osteoarthrit is of right knee (Primary Dx); Acute postoperative pain of right knee; Difficulty walking; Arthritis of right knee Start: 05-14-2024 End: 05-14-2024 Bamboo flowsheet Andressa Alanis SOFTWARE TOOLS ENGINEER Work Phone: [facility] Start: 05-14-2024 End: 05-14-2024 Bamboo flowsheet Andressa Alanis SOFTWARE TOOLS ENGINEER Work Phone: [facility] Start: 05-14-2024 End: 05-14-2024 ambulatory Miryam Aldrich DIRECTOR OF VIDEO ANALYTICS [facility] Comment on above: Primary osteoarthrit is of right knee (Primary Dx); Acute postoperative pain of right knee; Difficulty walking Start: 05-14-2024 End: 05-14-2024 Postop follow up visit related to original px Andressa Alanis SOFTWARE TOOLS ENGINEER Work Phone: [facility] Comment on above: S/P total knee arthr oplasty, right; Primary osteoarthritis of right knee Start: 05-14-2024 End: 05-14-2024 ambulatory ANDRESSA ALANIS Not Available Start: 05-12-2024 End: 05-12-2024 Bamboo flowsheet Yvette Richardson PT Work Phone: [facility] Start: 05-12-2024 End: 05-12-2024 Bamboo flowsheet Yvette Rosaston PT Work Phone: [facility] Start: 05-12-2024 End: 05-12-2024 ambulatory Yvette Richardson PT Work Phone: [facility] Comment on above: Primary osteoarthrit is of right knee (Primary Dx); Acute postoperative pain of right knee; Difficulty walking Start: 05-07-2024 End: 05-07-2024 Bamboo flowsheet Miryam Beachy DIRECTOR OF VIDEO ANALYTICS [facility] Start: 05-07-2024 End: 05-07-2024 Bamboo flowsheet Miryam Beachy DIRECTOR OF VIDEO ANALYTICS [facility] Start: 05-07-2024 End: 05-07-2024 ambulatory Miryam Aldrich DIRECTOR OF VIDEO ANALYTICS [facility] Comment on above: Primary osteoarthrit is of right knee (Primary Dx); Acute postoperative pain of right knee; Difficulty walking Start: 05-06-2024 End: 05-06-2024 Telephone encounter Isrrael Desouza DO Work Phone: [facility] Comment on above: refill Start: 05-05-2024 End: 05-05-2024 Bamboo flowsheet Isiah Brink DIRECTOR OF VIDEO ANALYTICS [facility] Start: 05-05-2024 End: 05-05-2024 Bamboo flowsheet Isiah Brink DIRECTOR OF VIDEO ANALYTICS [facility] Start: 05-05-2024 End: 05-05-2024 ambulatory Isiah Brink DIRECTOR OF VIDEO ANALYTICS [facility] Comment on above: Primary osteoarthrit is of right knee (Primary Dx); Acute postoperative pain of right knee; Difficulty walking; Arthritis of right knee Start: 04-30-2024 End: 04-30-2024 Bamboo flowsheet Miryam Aldrich DIRECTOR OF VIDEO ANALYTICS [facility] Start: 04-30-2024 End: 04-30-2024 Bamboo flowsheet Miryam Aldrich DIRECTOR OF VIDEO ANALYTICS [facility] Start: 04-30-2024 End: 05-06-2024 Telephone encounter Isrrael Desouza DO Work Phone: [facility] Comment on above: refill Start: 04-30-2024 End: 04-30-2024 ambulatory Miryam Aldrich DIRECTOR OF VIDEO ANALYTICS [facility] Comment on above: Primary osteoarthrit is of right knee (Primary Dx); Acute postoperative pain of right knee; Difficulty walking Start: 04-28-2024 End: 04-28-2024 Bamboo flowsheet Isiah Brink DIRECTOR OF VIDEO ANALYTICS [facility] Start: 04-28-2024 End: 04-28-2024 Bamboo flowsheet Isiah Brink DIRECTOR OF VIDEO ANALYTICS [facility] Start: 04-28-2024 End: 04-28-2024 ambulatory Isiah Brink DIRECTOR OF VIDEO ANALYTICS [facility] Comment on above: Primary osteoarthrit is of right knee (Primary Dx); Acute postoperative pain of right knee; Difficulty walking; Arthritis of right knee Start: 04-24-2024 End: 04-24-2024 Telephone encounter Andressa Alanis SOFTWARE TOOLS ENGINEER Work Phone: [facility] Start: 04-23-2024 End: 04-23-2024 Bamboo flowsheet Isiah Brink DIRECTOR OF VIDEO ANALYTICS [facility] Start: 04-23-2024 End: 04-23-2024 Bamboo flowsheet Isiah Brink DIRECTOR OF VIDEO ANALYTICS [facility] Start: 04-23-2024 End: 04-23-2024 ambulatory Isiah Brink DIRECTOR OF VIDEO ANALYTICS [facility] Comment on above: Primary osteoarthrit is of right knee (Primary Dx); Acute postoperative pain of right knee; Difficulty walking; Arthritis of right knee Start: 04-22-2024 End: 04-22-2024 ambulatory ELSY PEREZ Not Available Start: 04-21-2024 End: 04-29-2024 Telephone encounter Isrrael Desouza DO Work Phone: [facility] Comment on above: Primary osteoarthrit is of right knee (Primary Dx); Acute postoperative pain of right knee; Difficulty walking Start: 04-21-2024 End: 04-21-2024 ambulatory ELSY PEREZ Not Available Start: 04-18-2024 End: 04-18-2024 Clinical Support Elsy Perez PT Work Phone: [facility] Comment on above: Primary osteoarthrit is of right knee (Primary Dx); Acute postoperative pain of right knee; Difficulty walking Start: 04-17-2024 End: 04-17-2024 Bamboo flowsheet Isrrael Desouza DO Work Phone: [facility] Start: 04-17-2024 End: 04-17-2024 Bamboo flowsheet Isrrael Desouza DO Work Phone: [facility] Start: 04-17-2024 End: 04-17-2024 ambulatory ELSY PEREZ Not Available Start: 04-17-2024 End: 04-17-2024 Postop follow up visit related to original px Isrrael Desouza DO Work Phone: [facility] Comment on above: S/P total knee arthr oplasty, right Start: 04-17-2024 End: 04-17-2024 ambulatory ISRRAEL DESOUZA Not Available Start: 04-16-2024 End: 04-16-2024 Clinical Support Elsy Perez PT Work Phone: [facility] Comment on above: Primary osteoarthrit is of right knee (Primary Dx); Acute postoperative pain of right knee; Difficulty walking Start: 04-14-2024 End: 04-14-2024 Jignesh Mendoza SOFTWARE TOOLS ENGINEER Work Phone: [facility] Comment on above: Post-op pain Primary osteoarthrit is of right knee (Primary Dx); Acute postoperative pain of right knee; Difficulty walking Start: 04-11-2024 End: 04-11-2024 Clinical Support Elsy Perez PT Work Phone: [facility] Comment on above: Primary osteoarthrit is of right knee (Primary Dx); Acute postoperative pain of right knee; Difficulty walking Start: 04-09-2024 End: 04-10-2024 ambulatory [facility] Start: 04-08-2024 End: 04-08-2024 Refill Maricarmen Mendoza SOFTWARE TOOLS ENGINEER Work Phone: [facility] Comment on above: Post-op pain (Primar y Dx); Arthritis of right knee Start: 04-07-2024 End: 04-07-2024 ambulatory [facility] Start: 03-31-2024 End: 03-31-2024 Bamboo flowsheet Andressa Alanis SOFTWARE TOOLS ENGINEER Work Phone: [facility] Start: 03-31-2024 End: 03-31-2024 Bamboo flowsheet Andressa Alanis SOFTWARE TOOLS ENGINEER Work Phone: [facility] Start: 03-31-2024 End: 03-31-2024 Office outpatient visit 25 minutes Andressa Alanis SOFTWARE TOOLS ENGINEER Work Phone: [facility] Comment on above: Left elbow pain (Laine kathy Dx); Medial epicondylitis of left elbow Start: 03-31-2024 End: 03-31-2024 ambulatory ANDRESSA ALANIS Not Available Start: 03-29-2024 End: 03-29-2024 ambulatory [facility] Work Phone: Start: 03-29-2024 End: 03-29-2024 Patient encounter procedure [facility] Vladimir Work Phone: Start: 03-20-2024 End: 03-20-2024 ambulatory [facility]LY[facility] Start: 03-20-2024 Encounter for genera l adult medical examination without abnormal findings [facility] Start: 03-13-2024 End: 03-13-2024 Bamboo flowsheet Maricarmen Mendoza SOFTWARE TOOLS ENGINEER Work Phone: [facility] Start: 03-13-2024 End: 03-13-2024 Bamboo flowsheet Maricarmen Mendoza SOFTWARE TOOLS ENGINEER Work Phone: [facility] Start: 03-13-2024 End: 03-13-2024 ambulatory [facility] Start: 03-13-2024 Encounter for other preprocedural examination [facility] Start: 03-13-2024 End: 03-13-2024 Office outpatient visit 40 minutes Isrrael Thaddeus Lyly DO Work Phone: [facility] Comment on above: Right knee pain, uns pecified chronicity; Arthritis of right knee Start: 03-13-2024 End: 03-13-2024 ambulatory ISRRAEL Thaddeus LYLY Not Available Start: 02-19-2024 End: 02-20-2024 ambulatory Yvette Richardson PT Work Phone: [facility] Comment on above: Arthritis of right k nee (Primary Dx) Start: 02-19-2024 End: 02-19-2024 Office outpatient visit 25 minutes Isrrael Thaddeus Llyy DO Work Phone: [facility] Comment on above: Right knee pain, uns pecified chronicity (Primary Dx); Arthritis of right knee Start: 02-19-2024 End: 02-19-2024 ambulatory ISRRAEL Thaddeus LYLY Not Available Start: 02-19-2024 End: 02-19-2024 Bamboo flowsheet Isrrael Desouza DO Work Phone: [facility] Start: 02-19-2024 End: 02-19-2024 Bamboo flowsheet Isrrael Desouza DO Work Phone: [facility] Start: 02-06-2024 End: 02-06-2024 Bamboo flowsheet Andressa Alanis SOFTWARE TOOLS ENGINEER Work Phone: [facility] Start: 02-06-2024 End: 02-06-2024 Bamboo flowsheet Andressa Alanis SOFTWARE TOOLS ENGINEER Work Phone: [facility] Start: 02-06-2024 End: 02-06-2024 Office outpatient visit 25 minutes Andressa Alanis SOFTWARE TOOLS ENGINEER Work Phone: [facility] Comment on above: Right knee pain, uns pecified chronicity (Primary Dx); Arthritis of right knee Start: 02-06-2024 End: 02-06-2024 ambulatory ANDRESSA ALANIS Not Available Start: 01-14-2024 End: 01-14-2024 ambulatory MANUEL GARCÍAO Not Available Start: 07-13-2022 End: 07-14-[address] OLYA ROD Facility:[facility]1 Start: 05-05-2022 End: 05-06-[address] OLYA ROD Facility:[facility] Start: 03-20-2022 Encounter for genera l adult medical examination without abnormal findings DR OLYA ROD [facility] Start: 03-16-2022 End: 03-17-[address] OLYA ROD Facility:[facility] Start: 03-16-2022 End: 03-17-2022 Encounter for general adult medical examination without abnormal findings DR OLYA ROD Facility:[facility] Start: 12-21-2021 End: 12-21-[address] OLYA ROD Facility:[facility] Start: 05-08-2021 End: 05-08-2021 ambulatory Hoda Vences Other [facility] Other Start: 05-08-2021 Office outpatient vi sit 15 minutes Hoda Vences [facility] [place] Procedures Date Procedure Procedure Detail Performing Clinician Start: 09-23-2024 Follow-up visit Follow-up AJMES BROOKS Start: 09-18-2024 Radiologic examinati on knee 1/2 views Maricarmen Mendoza SOFTWARE TOOLS ENGINEER Work Phone: Start: 06-23-2024 Radiologic examinati on knee 1/2 views Andressa Alanis SOFTWARE TOOLS ENGINEER Work Phone: Start: 05-14-2024 Radiologic examinati on knee 1/2 views Andressa Alanis SOFTWARE TOOLS ENGINEER Work Phone: Start: 03-31-2024 [facility] AMB TRIGGER POI NT INJECTION Andressa Alanis NP Work Phone: Start: 03-31-2024 Radex elbow 2 views Mar lucio Phelps Annabelle SOFTWARE TOOLS ENGINEER Work Phone: Start: 03-20-2024 Adult depression scr eening assessment Olya Rod MD Work Phone: Start: 02-06-2024 Radiologic examinati on knee 1/2 views Andressa Alanis SOFTWARE TOOLS ENGINEER Work Phone: Start: 01-14-2024 Microscopic observat ion [Identifier] in Cervix by Cyto stain Maricarmen Mendoza NP Work Phone: Start: 10-23-2023 Mammography Olya flores MD Work Phone: Start: 10-22-2023 Mammography Maricarmen milan NP Work Phone: Start: 06-28-2017 Colonoscopy Maricarmen milan NP Work Phone: Plan of Treatment Date Care Activity Detail Author Start: 02-02-2028 Screening for malign ant neoplasm of cervix [facility] Start: 06-28-2027 Screening for malign ant neoplasm of colon [facility] Start: 01-13-2027 Screening for malign ant neoplasm of cervix Pap Smear [facility] Start: 02-18-2026 End: 02-18-2026 Patient encounter procedure 02/18/2026 10:45 AM EDT Office Visit [facility] [address] [place] [address] Maricarmen Mendoza, SOFTWARE TOOLS ENGINEER [address] [place] [address] [facility] Start: 01-16-2026 DTaP,Tdap and Td Vaccines (2 - Td or Tdap) DTaP,Tdap and Td Vaccines (2 - Td or Tdap) [facility] Start: 04-10-2025 Adult BMI Screening Adult BMI Screen ing [facility] Start: 04-09-2025 Tobacco Screening Tobacco Screening [facility] Start: 03-20-2025 Depression Screening Depression Scre ening [facility] Start: 02-09-2025 Influenza vaccination [facility] Start: 01-19-2025 End: 01-19-2025 Patient encounter procedure 01/19/2025 2:00 PM EDT Office Visit [facility] [address] [place] [address] Manuel Orellana DO [address] [facility] [place] [address] [facility] Start: 12-15-2024 End: 12-15-2024 Patient encounter procedure 12/15/2024 10:30 AM EDT Office Visit [facility] [address] [place] [phone] Maricarmen Mendoza, SOFTWARE TOOLS ENGINEER [address] [place] [address] [facility] Start: 10-22-2024 Screening for malign ant neoplasm of breast Mammogram [facility] Start: 10-21-2024 Screening for malign ant neoplasm of breast Mammogram [facility] Start: 10-17-2024 End: 10-17-2024 Patient encounter procedure 10/17/2024 8:45 AM EDT Office Visit [facility] [address] [place] [address] Jr. Froylan Azevedo, DO [address] [address] Arrived [facility] Comment on above: Arrived Start: 09-23-2024 End: 09-23-2024 Patient encounter procedure 09/23/2024 10:30 AM EDT Office Visit [facility] [address] [place] [phone] James Velasquez MD [address] [place] [phone] [facility] Start: 09-18-2024 End: 09-18-2024 Patient encounter procedure 09/18/2024 10:45 AM EDT Office Visit [facility] [address] [place] [phone] Maricarmen Mendoza, SOFTWARE TOOLS ENGINEER [address] [place] [address] [facility] Start: 07-16-2024 End: 07-16-2024 ambulatory [facility] Comment on above: Arrived Start: 07-09-2024 End: 07-09-2024 ambulatory [facility] Comment on above: Arrived Start: 07-04-2024 End: 07-04-2024 ambulatory 07/04/2024 9:00 AM EST Treatment [facility] [address] [place] [address] Miryam Aldrich, DIRECTOR OF VIDEO ANALYTICS Arrived [facility] Comment on above: Arrived Start: 07-02-2024 End: 07-02-2024 ambulatory [facility] Start: 06-23-2024 End: 06-23-2024 Patient encounter procedure [facility] Comment on above: S/P total knee arthr oplasty, right (Primary Dx) Start: 06-20-2024 End: 06-20-2024 ambulatory [facility] Comment on above: Arrived Start: 06-17-2024 End: 06-17-2024 ambulatory 06/17/2024 1:30 PM EST Treatment [facility] [address] [place] [address] Marisa Aldrichissa, DIRECTOR OF VIDEO ANALYTICS [facility] Start: 06-13-2024 End: 06-13-2024 ambulatory 06/13/2024 1:00 PM EST Treatment [facility] [address] [place] [address] Miryam Aldrich, DIRECTOR OF VIDEO ANALYTICS [facility] Start: 06-09-2024 End: 06-09-2024 ambulatory [facility] Comment on above: Arrived Start: 06-05-2024 End: 06-05-2024 ambulatory [facility] Comment on above: Acute postoperative pain of right knee (Primary Dx); Primary osteoarthritis of right knee; Difficulty walking Start: 06-02-2024 End: 06-02-2024 ambulatory [facility] Comment on above: Arrived Start: 05-30-2024 End: 05-30-2024 ambulatory 05/30/2024 10:30 AM EST Treatment [facility] [address] [place] [address] Miryam Aldrich, DIRECTOR OF VIDEO ANALYTICS [facility] Start: 05-28-2024 End: 05-28-2024 ambulatory [facility] Comment on above: Arrived Start: 05-26-2024 End: 05-26-2024 ambulatory [facility] Comment on above: Acute postoperative pain of right knee (Primary Dx); Primary osteoarthritis of right knee; Difficulty walking; Arthritis of right knee Start: 05-23-2024 End: 05-23-2024 ambulatory 05/23/2024 1:00 PM EST Treatment [facility] [address] [facility] [address] [place] [address] Isiah Clifton DIRECTOR OF VIDEO ANALYTICS [facility] Start: 05-21-2024 End: 05-21-2024 ambulatory [facility] Comment on above: Arrived Start: 05-19-2024 End: 05-19-2024 ambulatory [facility] Comment on above: Arrived Start: 05-16-2024 End: 05-16-2024 ambulatory [facility] Comment on above: Arrived Start: 05-14-2024 End: 05-14-2024 ambulatory 05/14/2024 10:30 AM EST Treatment [facility] [address] [facility] [address] [place] [address] Yvette Richardson, PT [address] [place] [address] [facility] Start: 05-14-2024 End: 05-14-2024 Patient encounter procedure [facility] Comment on above: S/P total knee arthr oplasty, right Start: 05-12-2024 End: 05-12-2024 ambulatory [facility] Comment on above: Arrived Start: 05-07-2024 End: 05-07-2024 ambulatory [facility] Comment on above: Arrived Start: 05-05-2024 End: 05-05-2024 ambulatory [facility] Comment on above: Arrived Start: 04-30-2024 End: 04-30-2024 ambulatory [facility] Comment on above: Arrived Start: 04-17-2024 End: 04-17-2024 Patient encounter procedure [facility] Comment on above: Arrived Start: 04-09-2024 End: 04-09-2024 Patient encounter procedure 04/09/2024 9:00 AM EDT Procedure Visit [facility] Isrrael Desouza DO [address] [place] [address] [facility] Start: 04-07-2024 End: 04-07-2024 Patient encounter procedure 04/07/2024 8:30 AM EDT Office Visit [facility] [address] [place] [address] Andressa Alanis, SOFTWARE TOOLS ENGINEER [address] [place] [address] [facility] Start: 03-31-2024 End: 03-31-2024 Patient encounter procedure 03/31/2024 11:45 AM EDT Office Visit [facility] [address] [place] [address] Andressa Alanis, SOFTWARE TOOLS ENGINEER [address] [place] [address] Left elbow pain (Primary Dx) [facility] Comment on above: Left elbow pain (Laine kathy Dx) Start: 03-13-2024 End: 03-13-2024 Patient encounter procedure 03/13/2024 1:00 PM EDT Office Visit [facility] [address] [place] [phone] Maricarmen Mendoza NP [address] [place] [address] Right knee pain, unspecified chronicity; Arthritis of right knee [facility] Comment on above: Right knee pain, uns pecified chronicity; Arthritis of right knee Start: 02-19-2024 End: 02-19-2024 ambulatory 02/19/2024 4:30 PM EDT Evaluation [facility] [address] [place] [address] Yvette Richardson, PT [address] [place] [address] [facility] Start: 02-19-2024 End: 02-19-2024 Patient encounter procedure [facility] Comment on above: Arrived Start: 02-10-2024 COVID-19 Vaccine ( season) COVID-19 Vaccine ( season) [facility] Start: 02-10-2024 Influenza vaccination [facility] Start: 02-06-2024 End: 02-06-2024 Patient encounter procedure 02/06/2024 9:30 AM EDT Office Visit [facility] [address] [place] [address] Andressa Alanis SOFTWARE TOOLS ENGINEER [address] [place] [address] Right knee pain, unspecified chronicity (Primary Dx); Arthritis of right knee [facility] Comment on above: Right knee pain, uns pecified chronicity (Primary Dx); Arthritis of right knee Start: 2016 Administration of varicella zoster vaccine Zoster (Shingles) Vaccine (1 of 2) [facility] Start: 1984 Adult BMI Follow Up Plan Adult BMI Follow Up Plan [facility] Start: 1966 Screening for malign ant neoplasm of colon [facility] Immunizations Immunization Date Immunization Notes Care Provider Fa cili 06-07-2021 Pfizer Purple Cap SARS-CoV-2 Vaccination Maricarmen Mendoza NP Work Phone: [facility] 06-06-2021 COVID-19, mRNA, LNP- S, PF, 100mcg/0.5mL Dose Olya Rod MD Work Phone: [facility] 11-03-2020 Moderna SARS-CoV-2 Vaccination Maricarmen Louisa CARSON Work Phone: [facility] 10-06-2020 Moderna SARS-CoV-2 Vaccination Maricarmen Louisa SOFTWARE TOOLS ENGINEER Work Phone: [facility] 02-25-2020 pneumococcal polysaccharide vaccine, 23 valent Maricarmen Louisa SOFTWARE TOOLS ENGINEER Work Phone: [facility] 01-17-2016 tetanus toxoid, redu red diphtheria toxoid, and acellular pertussis vaccine, adsorbed Maricarmen Louisa SOFTWARE TOOLS ENGINEER Work Phone: [facility] Healthcare Payers Date Payer Category Payer [facility] BCBS Memb er Subscriber Plan / Payer (Effective 2021-Present) Name: Stacey Morelos Relation to Subscriber: Spouse Name: MORELOSVIKKI Date of : 1973 Address: [address] [place] [address] Payer ID: Not on file Type: Not on file Address: [address] [place] [id number] 2021 Unknown BCBS BCBS xxxxxx [id number] 2021-Present [phone] [address] [place] [id number]. [id number] 1966 Unknown [id number] .16.840.1.472330.3.579.2. 593 1966 Unknown [id number] .16.840.1.708136.3.579.2. 593 1966 Unknown [id number] 2.16.840.1.008094.3.579.2. 593 1966 Unknown [id number] 2.16.840.1.713034.3.579.2. 593 1966 Unknown [id number] 2.16.840.1.360973.3.579.2. 1286 1966 Unknown [id number] 2.16.840.1.379457.3.579.2. 128 1966 Unknown [id number] 2.16.840.1.944646.3.579.2. 1285 1966 Unknown [id number] 2.16.840.1.860835.3.579.2. 1285 1966 Unknown [id number] 2.16.840.1.446279.3.579.2. 1285 1966 Unknown [id number] 2.16.840.1.008259.3.579.2. 1285 1966 Unknown [id number] 2.16.840.1.998405.3.579.2. 1285 1966 Unknown [id number] 2.16.840.1.170289.3.579.2. 1285 1966 Unknown [id number] 2.16.840.1.450885.3.579.2. 128 1966 Unknown [id number] 2.16.840.1.067125.3.579.2. 9 1966 Unknown [id number] 2.16.840.1.235921.3.579.2. 9 1966 Unknown [id number] 2.16.840.1.227794.3.579.2. 1258 1966 Unknown [id number] 2.16.840.1.460805.3.579.2. 1259 1966 Unknown [id number] 2.16.840.1.047216.3.579.2. 1258 1966 Unknown [id number] 2.16.840.1.925117.3.579.2. 1258 1966 Unknown [id number] 2.16.840.1.593981.3.579.2. 1258 1966 Unknown [id number] 2.16.840.1.694533.3.579.2. 1258 1966 Unknown [id number] 2.16.840.1.103962.3.579.2. 1258 1966 Unknown [id number] 2.16.840.1.908580.3.579.2. 1258 1966 Unknown [id number] 2.16.840.1.049599.3.579.2. 1258 1966 Unknown [id number] 2.16.840.1.445420.3.579.2. 1258 1966 Unknown [id number] 2.16.840.1.753943.3.579.2. 1258 1966 Unknown [id number] 2.16.840.1.934302.3.579.2. 1258 1966 Unknown [id number] 2.16.840.1.059772.3.579.2. 1258 1966 Unknown [id number] 2.16.840.1.129618.3.579.2. 1258 1966 Unknown [id number] 2.16.840.1.760037.3.579.2. 1258 1966 Unknown [id number] 2.16.840.1.754001.3.579.2. 1258 1966 Unknown [id number] 2.16.840.1.924426.3.579.2. 1258 1966 Unknown [id number] 2.16.840.1.960597.3.579.2. 1258 1966 Unknown [id number] 2.16.840.1.918701.3.579.2. 1258 1966 Unknown [id number] 2.16.840.1.605966.3.579.2. 1258 1966 Unknown [id number] 2.16.840.1.614789.3.579.2. 1258 1966 Unknown [id number] 2.16.840.1.113227.3.579.2. 1258 1966 Unknown [id number] 2.16.840.1.543696.3.579.2. 1258 1966 Unknown [id number] 2.16.840.1.959827.3.579.2. 1258 1966 Unknown [id number] 2.16.840.1.706789.3.579.2. 1258 1966 Unknown [id number] 2.16.840.1.990875.3.579.2. 1258 1966 Unknown [id number] 2.16.840.1.093160.3.579.2. 1258 1966 Unknown [id number] 2.16.840.1.140366.3.579.2. 1258 1966 Unknown [id number] 2.16.840.1.412920.3.579.2. 1258 1966 Unknown [id number] 2.16.840.1.174126.3.579.2. 1258 1966 Unknown [id number] 2.16.840.1.059755.3.579.2. 1258 1966 Unknown [id number] 2.16.840.1.375747.3.579.2. 1258 1966 Unknown [id number] 2.16.840.1.507700.3.579.2. 1258 1966 Unknown [id number] 2.16.840.1.600803.3.579.2. 1258 1966 Unknown [id number] 2.16.840.1.594615.3.579.2. 9 1966 Unknown [id number] 2.16.840.1.099577.3.579.2. 1258 1966 Unknown [id number] 2.16.840.1.039180.3.579.2. 9 1966 Unknown [id number] 2.16.840.1.176680.3.579.2. 1258 1966 Unknown [id number] 2.16.840.1.194080.3.579.2. 1258 1966 Unknown [id number] 2.16.840.1.930812.3.579.2. 1258 1966 Unknown [id number] 2.16.840.1.860017.3.579.2. 1258 1966 Unknown [id number] 2.16.840.1.870682.3.579.2. 1258 1966 Unknown [id number] 2.16840.1.146007.3.579.2. 9 1959 Unknown [id number] [employer] [facility] Other ANTH 1.2.840.830227.1.13.424.2. 7.9.809594.505.315 Unknown [id number] 2..840.1.494421.19 Social History Date Type Detail Facility Start: 02-06-2024 End: 10-17-2024 Sex Assigned At [facility] Start: 09-05-2022 End: 12-24-2022 Tobacco smoking status NHIS Never smoked tobacco [facility] Start: 09-05-2022 End: 12-24-2022 Tobacco use and exposure Smokeless tobacco non-user [facility] Start: 02-15-2024 End: 04-10-2024 Alcoholic beverage intake Ex-drinker (finding) [facility] Start: 02-06-2024 End: 10-17-2024 History of Social function [facility] Start: 12-24-2022 Alcohol Comment Occasional Alcohol use / Caffeine: none [facility] Start: 1966 Sex assigned at Not on file [facility] Start: 03-13-2024 End: 10-17-2024 Alcoholic beverage intake Current drinker of alcohol (finding) [facility] Start: 1966 Sex Assigned At Female [facility] Has the [employer], [employer], oil, or water company threatened to shut off services in your home in past 12Mo No [facility] Are you now , , , , never or living with a partner? [facility] Frequency of Alcohol Consumption Monthly or less [facility] Do you feel stress - tense, restless, nervous, or anxious, or unable to sleep at night because your mind is troubled all the time - these days [OSQ] Only a little [facility] Start: 06-22-2017 Alcohol Comment occasional [facility] Start: 01-14-2015 Sex Female (finding) [facility] Start: 04-09-2024 Gender identity Identifies as female gender (finding) [facility] Start: 04-09-2024 Sexual orientation Heterosexual (finding) [facility] Medical Equipment Procedure Code Equipment Code Equipment Origin al Text Equipment Identifier Dates Cement Bn Bio 40 gm Rpl [id number] - Sna - [id number] ()[id number] [id number](21)NA, [id number], [id number] FDA Start: 04-09-2024 Component Ptlr 3 2mm Persona Alply Kn Strl - Sna - [id number] ()[id number] [id number] (21)NA, [id number] FDA Start: 04-09-2024 Surface Artc 11m m Marva Grant Cngr 6-7 Cd Kn Rt Vivacit-E - Sna - [id number] ()[id number] [id number] (21)NA, [id number] FDA Start: 04-09-2024 Component Fem 7 Std Kn Rt Crcte Rtn Cmnt Persona Cocr - Sna - [id number] ()[id number] [id number] (21)NA, [id number] FDA Start: 04-09-2024 Baseplate Tib 5d D Kn Rt Cmnt Stm Persona Tiv Strl - Sna - [id number] ()[id number] [id number] (21)NA, [id number]_[id number] FDA Start: 04-09-2024 Clinical Notes 05-08-2021 to 10-17-2024 Jr. Froylan Azevedo, DO - 10/17/2024 8:45 AM EDTGranyamileth Mendoza, SOFTWARE TOOLS ENGINEER - 09/18/2024 10:45 AM EDTTelephone Encounter - Lisa Noel - 08/12/2024 12:48 PM Lanny Alanis, ALLI - 06/23/2024 10:30 AM EST Note Date & Type Note Facility 10-17-2024 History of Present illness Narrative Images from the original note were not included. HISTORY OF PRESENT ILLNESS: EST PT Stacey Morelos is an 59 y.o. @ female. (EST PT-NEW PROBLEM) - (L) THUMB TRIGGER FINGER - SYMPTOMS FOR 1 MONTH (SEPTEMBER 2024) -GETTING WORSE WITH TIME - PAIN AT BASE OF THUMB, CONSTANT. DESCRIBED AN ACHE - TRIGGERING FREQUENTLY, WORSE IN THE MORNING - OCCAS HAS TO UNLOCK FINGER WITH OTHER HAND - USING VOLTAREN WITH SOME RELIEF - TAKING TYL PRN - DENIES N/T - +SWELLING AT MCP JOINT, PALMAR ASPECT - DIFFICULTY GRIPPING OBJECTS - PT IS RT HAND DOMINANT. ALLERGIES: No Known Allergies HOME MEDICATIONS: Current Outpatient Medications Medication Instructions albuterol HFA 90 mcg/act inhaler Every 4 hours amoxicillin (Amoxil) 500 MG tablet 4 tabs PO once 30-60 mins before procedure with food atorvastatin (LIPITOR) 10 mg, Daily RT B Complex-Folic Acid (SUPER B COMPLEX MAXI PO) buPROPion XL (Wellbutrin XL) 300 MG 24 hr tablet 1 tablet, Every morning rjmrtzdljg-ipzlrnaywdmxm-qzzplxms 50-325-40 MG tablet calcium carbonate (TUMS) 500 mg, Daily cetirizine (ZYRTEC) 10 mg, Daily RT ferrous sulfate ER 142 mg ER tablet Daily RT montelukast (Singulair) 10 MG tablet 1 tablet, Nightly Multiple Vitamin (multivitamin) capsule 1 capsule, Daily sertraline (Zoloft) 50 MG tablet Synthroid 50 MCG tablet 1 tablet, Every morning PHYSICAL EXAM: Hand/Wrist Musculoskeletal Exam Inspection Left Left hand/wrist inspection is normal. Erythema: none Ecchymosis: none Edema: none Deformity: none Hand - prior incision: none Wrist - prior incision: none Palpation Left Triggering: thumb Thumb tenderness to palpation: A1 zulema Range of Motion Left Hand Left hand range of motion is normal. Neurovascular Left Left neurovascular exam is normal. Special Tests Left Left special tests are normal. General Constitutional: appears stated age Neurological: alert and oriented x3 Skin: intact Vitals: There is no height or weight on file to calculate BMI. Tobacco Use: Low Risk (10/17/2024) Patient History Smoking Tobacco Use: Never Smokeless Tobacco Use: Never Passive Exposure: Not on file Alcohol Use: Not At Risk (04/16/2018) [facility] Frequency of Alcohol Consumption: Monthly or less Average Number of Drinks: 1 or 2 Frequency of Binge Drinking: Never IMAGING: Procedures No orders of the defined types were placed in this encounter. ASSESSMENT: ICD-10-CM 1. Trigger thumb of left hand M65.312 PLAN: We have discussed both surgical and nonsurgical treatment options with her and the risks and benefits associated with both. The patient is requesting an open release the A1 zulema to the left thumb for left trigger thumb. We'll see her back on the day of surgery. Patient has a full understanding of surgical intervention. We have discussed both surgical and nonsurgical treatment options with the patient and the risks and benefits associated with both. The patient is requesting surgical intervention because the patient's symptoms were affecting the patient's activities of daily living and ability to sleep. The patient's symptoms were unresponsive to outpatient treatment options. After lengthy discussions involving but not limited to both surgical and nonsurgical treatment options the patient has requested surgical intervention and we will see them back on the day of surgery. The patient understands the risks of said treatment. Questions answered in laymen terms at the bedside. The diagnosis, home exercise plan and any ongoing restrictions/ recommendations reviewed. If unable to be reached in office, I recommend evaluation at nearest Emergency Room if any symptoms worsened or new symptoms develop for requiring urgent evaluation. documented in this encounter [facility] 09-18-2024 History of Present illness Narrative Images from the original note were not included. HISTORY OF PRESENT ILLNESS: EST PT Stacey Morelos is an 59 y.o. @ female. (EST PT) S/P RT TKA 04/09/24 (5 MTHS 1 1/2 WKS)- DR DESOUZA. XRAY TODAY EPIC 09/18/24 XRAY EPIC 06/23/24 XRAY EPIC 05/14/24 WALKING WELL UNASSISTED. DENIES MUCH PAIN. STATES IT IS MORE STIFF AND TIGHT. STIFFNESS IMPROVED THROUGHOUT THE DAY. NO PAIN MEDS. DENIES GIVING OUT. ALLERGIES: No Known Allergies HOME MEDICATIONS: Current Outpatient Medications Medication Instructions albuterol HFA 90 mcg/act inhaler Every 4 hours amoxicillin (Amoxil) 500 MG tablet 4 tabs PO once 30-60 mins before procedure with food atorvastatin (LIPITOR) 10 mg, Daily RT B Complex-Folic Acid (SUPER B COMPLEX MAXI PO) Super B Complex buPROPion XL (Wellbutrin XL) 300 MG 24 hr tablet 1 tablet, Every morning vibyfjncsd-nfredxjnislun-lloywcsh 50-325-40 MG tablet take 1 TO 2 tablets by mouth every 6 hours if needed for headache calcium carbonate (TUMS) 500 mg, Daily ferrous sulfate ER 142 mg ER tablet Daily RT montelukast (Singulair) 10 MG tablet 1 tablet, Nightly Multiple Vitamin (multivitamin) capsule 1 capsule, Daily sertraline (Zoloft) 50 MG tablet Synthroid 50 MCG tablet 1 tablet, Every morning traMADol (Ultram) 50 MG tablet Take by mouth PHYSICAL EXAM: Right Knee Exam Tenderness The patient is experiencing no tenderness. Range of Motion Extension: 0 Flexion: 120 (stiffness with terminal flexion) Tests Varus: negative Valgus: negative Other Scars: present Sensation: normal Pulse: present Swelling: none Vitals: There is no height or weight on file to calculate BMI. Tobacco Use: Low Risk (09/18/2024) Patient History Smoking Tobacco Use: Never Smokeless Tobacco Use: Never Passive Exposure: Not on file Alcohol Use: Not At Risk (04/16/2018) [facility] Frequency of Alcohol Consumption: Monthly or less Average Number of Drinks: 1 or 2 Frequency of Binge Drinking: Never IMAGING: XR knee 1 or 2 views right Imaging Result: 09/18/2024: Standing AP and LAT [...] dislocation. Impression: Stable RT total knee replacement. Maricarmen Mendoza STRIP MILL OPERATOR-SENIOR DATA DEVELOPER Procedures Orders Placed This Encounter Procedures XR knee 1 or 2 views right Order Specific Question: Is the patient ? Answer: No Order Specific Question: Reason for exam: Answer: total ASSESSMENT: ICD-10-CM 1. S/P total knee arthroplasty, right Z96.651 2. Primary osteoarthritis of right knee M17.11 XR knee 1 or 2 views right PLAN: I reviewed xray with patient which showed a stable RT TKA. She states she is doing well with ROM but gets stiffness in the morning. I educated patient to do HEP in the morning and to call with any worsening symptoms. She will follow up in 6 months for RCK and xray. I discussed with the patient the general recommendation for the use of prophylactic antibiotics prior to dental work after joint replacement. I advised the patient that the use of prophylactic antibiotics for dental work is a controversial topic. I currently have recommended that prophylactic antibiotics be used postop and I did advise the patient that the guidelines and recommendations may change on this in the future. Questions answered in laymen terms at the bedside. The diagnosis, home exercise plan and any ongoing restrictions/ recommendations reviewed. If unable to be reached in office, I recommend evaluation at nearest Emergency Room if any symptoms worsened or new symptoms develop for requiring urgent evaluation. Maricarmen Mendoza STRIP MILL OPERATOR-SENIOR DATA DEVELOPER documented in this encounter [facility] 08-12-2024 Telephone encounter Note Found note and printed here in [place]. Do we need to let patient know? [facility] 08-12-2024 Miscellaneous Notes Found note and printed here in [place]. Do we need to let patient know? Patient called stating that she needs a new copy of her RTW note. I do not see it in her chart. She can pick pulling machine tender today in [place]. She stated it said RTW on 08/11/24 with no squatting or kneeling. documented in this encounter [facility] 08-12-2024 Telephone encounter Note Patient called stating that she needs a new copy of her RTW note. I do not see it in her chart. She can pick pulling machine tender today in [place]. She stated it said RTW on 08/11/24 with no squatting or kneeling. [facility] 06-23-2024 History of Present illness Narrative Images from the original note were not included. Subjective Patient ID: Stacey Morelos is a 58 y.o. female. RT knee: 10 weeks and 5 days s/p RT TKA (DOS 04/09/24). She notes she had her last visit till this appt. She notes her ROM is improving. She notes she is no longer using a cane. Pain at rest 0/10, with activities 3/10. She is taking TYL prn. Using voltaren gel prn. Using ice/heat prn. Occas stabbing pain medial. Stiffness is improving. Swelling is improving. Admits numbness anterior majano that is about the same. Does not wake at HS. Doing HEP. Objective Ortho Exam Knee Musculoskeletal Exam Gait Limp: right Inspection Right Erythema: none Effusion: mild Edema: none Ecchymosis: none Deformity: none Alignment: normal Palpation Right Tenderness: none Range of Motion Right Active extension: 5 Right knee active flexion: 102. Strength Right Extension: 4-/5. Flexion: 4-/5. Left Extension: 4/5. Flexion: 4/5. Instability Instability additional comments: No ligament laxity, firm endpoints XR knee 1 or 2 views right Imaging Result: AP and lateral of right knee showed surgical position and alignment of prosthetic components without evidence of loosening or wear to the femoral, tibial, or patellar components. The alignment appeared to be anatomic. There was no evidence of accelerated or asymmetric wear to the patellar button or tibial tray. There was no evidence of fracture and/or dislocation. Impression: Unremarkable right total knee arthroplasty. Assessment/Plan Encounter Diagnoses: ICD-10-CM 1. S/P total knee arthroplasty, right Z96.651 F/U in 3 months, recommend to continue with therapy for once a week over the next 4 weeks She may rtw without kneeling and squatting documented in this encounter [facility] 06-09-2024 History of Present illness Narrative Images from the original note were not included. Physical Therapy Physical Therapy Treatment Visit Patient Name: Stacey Morelos Today's Date: 06/09/2024 Encounter Diagnoses Name Primary? Acute postoperative pain of right knee Yes Primary osteoarthritis of right knee Difficulty walking Visit Number 22 (5 in home) Time In: 1300 Time out: 1353 Timed Code Treatment: 40 minutes Total Treatment Time: 50 minutes Current Problem: s/p right TKA with pain and difficulty walking. Date of Surgery: 04/09/2024 with one night stay at hospital Current deficits: Difficulty with all mobility secondary to recent right TKA and pain. Precautions: WBAT Right LE; Right TKA protocol. Pain Management: Prior level of function: Ambulation: antalgic gait pattern on Right LE. Assistive devices: FWW, cane ADL and IADL: Independent. Home Environment: Pt lives with her in a two story home with 3-4 steps to enter. Bedroom and bathroom on first floor. Objective General Visit Information: Passive ROM: Left knee 6 to 80 degrees. Joint play: hypomobile. Manual muscle testing: Left knee flexion/extension: 3-/5. Palpation: Minimal warmth upon palpation, consistent with post-operative conditions. Surgical incision intact with cheri with no drainage on dressing and left open to air; ecchymosis developing medial knee with mild edema. Special tests: Negative Sylvia Sign. Functional Mobility: Bed Mobility: supervision Sit to Stand: supervision Stair Negotiation: supervision Ambulation: Patient is ambulating with mild antalgic type pattern with FWW, reciprocal to gait pattern; good heel to toe gait pattern; SBA. Pt ambulated approx 300' x 2 with slow aden. Fair knee flexion during swing phase. Tinetti Gait and Balance Assessment: Sitting balance: Steady, safe = 1. Rises from chair: needs assistance= 0. Attempts to rise: needs assistance= 0. Immediate standing balance (first 5 seconds): Steady but uses walker or other support = 1. Standing balance: Steady but uses walker or other support = 1. Nudged: Staggers, grabs, catches self = 1. Eyes closed: Steady = 1. Turning 360 degrees: Discontinuous steps = 0 , Unsteady (grabs, staggers) = 0. Sitting down: Uses arms or not a smooth motion = 1. Balance Score: 16. Indication of gait: No hesitancy = 1. Step of length and height: Step to = 0. Foot clearance: L foot clears floor = 1 , R foot clears floor = 1. Step symmetry: Right and left step length no equal = 0. Step continuity: Stopping or discontinuity between steps = 0. Path: Mild/moderate deviation or uses w/ aid = 1. Trunk: No sway but flex knees or back or uses arms for stability = 1. Walking time: Heels apart = 0. Gait score: 12. Total Score = Balance + Gait 05/08. Tinetti tool score: < = 18 High. SUBJECTIVE: Pt. Continues to have medial knee pain while on feet for long periods of time. Has sharp stabbing pain. Physical Education Intervention Manual: (8 minutes) Delivered manual ther to right LE/ knee PROM into flexion / extension, patellar mobs, STM and retro grade massage to decrease edema and improve mobility Therapeutic Exercise: ( 20 minutes supervised) Pt completed right LE open and closed exercises to improve right LE knee functional mobility ROM and strength. Bike seat at 9 to 6 set to improve mobility of right knee. Neuro ReEducation: ( prn) Focused on quad facilitation/activation to improve TKE post surgery using TKE w/ resistive band. Quad facilitation using verbal cues to with improved TKE during amb follow through. Gait Training: Therapeutic Activity: ( 10 minutes supervised ) Functional activity performed to return pt to prior condition and independent with stairs, transfers and Modalities: ( PRN ) Post session pt supine with CP to R knee to decrease edema and muscle soreness Assessment & Plan Pt has completed 22 PT sessions, 5 in home visits post right TKA performed 04-09-24. Pt. Continues to have medial knee catching pain. Pt. Demonstrates good knee ROM and strength grossly in all planes. Impairments: abnormal gait, abnormal or restricted ROM, impaired balance, impaired physical strength, pain with function and weight-bearing intolerance Barriers to therapy: Increased pain, edema,bruising and knee weakness. Prognosis: good Goals Short Term Goals Goal 1 : Patient will be independent with HEP with good compliance and independence. Goal 2 : Patient will demonstrate 3-90 degrees of passive range of motion of right knee flexion. Goal 3 : Patient will ambulate >6 minutes modified independently with wheeled walker with good reciprocal gait pattern. Goal 4 : Patient will demonstrate all sit< >stand transfers and supine< >sit bed mobility, modified independent with no cues for proper sequencing. Goal 5 : Patient will ascend/descend 6-7 steps with AD with supervision, step to gait pattern. Senior Care Goals Goal 1 : Patient will demonstrate 0-110 degrees of active Right knee flexion in order to improve indpendence with ambulation up and down steps. NOT MET Goal 2 : Patient will demonstrate 4+/5 or better right knee strength in order to safely return to activities of interest. NOT MET Goal 3 : Patient will ambulate community distances on even and uneven surfaces, independently with no AD, normalized gait pattern and < 1/10 report of pain in leftt knee. MET Goal 4 : Pt will ascend/descend 6-7 steps with railing with reciprical gait pattern independently. MET Goal 5 : Patient will demonstrate good static and dynamic standing balance for >15 mintues without LOB or increase in knee pain. MET Goal 6 : Pt will improve Tinetti Balance test to to indicate no fall risk. NOT MET Plan Planned modality interventions: cryotherapy Planned therapy interventions: bed mobility training, dressing changes, functional ROM exercises, gait training, home exercise program, manual therapy, neuromuscular re-education, soft tissue mobilization, strengthening, stretching, therapeutic activities and transfer training Frequency: 2-3x/week. Duration in weeks: 12 (07/09/24) Treatment plan discussed with: patient documented in this encounter [facility] 05-23-2024 Telephone encounter Note Stepping over gordon bag chair and tripped falling mostly left knee.. Icing.Billy Garcia I spoke with pt.. no skin injury, walking without aids... unfortunate event, but sound over the phone like she is doing ok.. let me know if you have any concerns with PT appt.. we can always bring her in sooner than 06/23 for recheck ( she has been seeing Andressa CARSON) [facility] Work Phone: 05-23-2024 Miscellaneous Notes Stepping over gordon bag chair and tripped falling mostly left knee.. Icing.. Radha Duvall spoke with pt.. no skin injury, walking without aids... unfortunate event, but sound over the phone like she is doing ok.. let me know if you have any concerns with PT appt.. we can always bring her in sooner than 06/23 for recheck ( she has been seeing Andressa SOFTWARE TOOLS ENGINEER) Patient called stating she had (R) TKA recently. She fell and tripped the morning. Patient has it prompted up and icing the knee now. She has physical therapy this afternoon. Is there anything she needs to do? Please advise [phone]. documented in this encounter [facility] 05-23-2024 Telephone encounter Note Patient called stating she had (R) TKA recently. She fell and tripped the morning. Patient has it prompted up and icing the knee now. She has physical therapy this afternoon. Is there anything she needs to do? Please advise [phone]. [facility] 05-21-2024 History of Present illness Narrative Physical Therapy Physical Therapy Daily Visit Patient Name: Stacey Morelos Today's Date: 05/21/2024 Encounter Diagnoses Name Primary? Acute postoperative pain of right knee Yes Primary osteoarthritis of right knee Difficulty walking Visit Number 15 (5 in home). Time In: 1100 AM Time out: 1153 AM Timed Code Treatment: 59 minutes Total Treatment Time 59 minutes Current Problem: s/p right TKA with pain and difficulty walking. Date of Surgery: 04/09/2024 with one night stay at hospital Current deficits: Difficulty with all mobility secondary to recent right TKA and pain. Precautions: WBAT Right LE; Right TKA protocol. Pain Management: Prior level of function: Ambulation: antalgic gait pattern on Right LE. Assistive devices: FWW, cane ADL and IADL: Independent. Home Environment: Pt lives with her in a two story home with 3-4 steps to enter. Bedroom and bathroom on first floor. Objective General Visit Information: Passive ROM: Left knee 6 to 80 degrees. Joint play: hypomobile. Manual muscle testing: Left knee flexion/extension: 3-/5. Palpation: Minimal warmth upon palpation, consistent with post-operative conditions. Surgical incision intact with cheri with no drainage on dressing and left open to air; ecchymosis developing medial knee with mild edema. Special tests: Negative Sylvia Sign. Functional Mobility: Bed Mobility: supervision Sit to Stand: supervision Stair Negotiation: supervision Ambulation: Patient is ambulating with mild antalgic type pattern with FWW, reciprocal to gait pattern; good heel to toe gait pattern; SBA. Pt ambulated approx 300' x 2 with slow aden. Fair knee flexion during swing phase. Tinetti Gait and Balance Assessment: Sitting balance: Steady, safe = 1. Rises from chair: needs assistance= 0. Attempts to rise: needs assistance= 0. Immediate standing balance (first 5 seconds): Steady but uses walker or other support = 1. Standing balance: Steady but uses walker or other support = 1. Nudged: Staggers, grabs, catches self = 1. Eyes closed: Steady = 1. Turning 360 degrees: Discontinuous steps = 0 , Unsteady (grabs, staggers) = 0. Sitting down: Uses arms or not a smooth motion = 1. Balance Score: 16. Indication of gait: No hesitancy = 1. Step of length and height: Step to = 0. Foot clearance: L foot clears floor = 1 , R foot clears floor = 1. Step symmetry: Right and left step length no equal = 0. Step continuity: Stopping or discontinuity between steps = 0. Path: Mild/moderate deviation or uses w/ aid = 1. Trunk: No sway but flex knees or back or uses arms for stability = 1. Walking time: Heels apart = 0. Gait score: /12. Total Score = Balance + Gait 05/08. Tinetti tool score: < = 18 High. SUBJECTIVE: Pt reports medial knee pain 3/10 nagging, near constant. States she probably over does it throughout the day. Physical Education Intervention Manual: ( 9 minutes) Delivered manual ther to right LE/ knee PROM into flexion / extension, patellar mobs, STM and retro grade massage to decrease edema and improve mobility Therapeutic Exercise: ( 33 minutes supervised) Pt completed right LE open and closed exercises to improve right LE knee functional mobility ROM and strength. Bike seat at 18 to 16 set to hills level 3 to improve mobility of right knee Neuro ReEducation: (PRN) Focused on quad facilitation/activation to improve TKE post surgery. Quad tapping for tactile input, with improved follow through. Gait Training: Therapeutic Activity: (17 minutes supervised ) Functional activity performed to return pt to prior condition and independent with stairs, transfers and Modalities: ( PRN ) Post session pt supine with CP to R knee to decrease edema and muscle soreness Assessment & Plan Pt has completed 15 PT sessions, 5 in home visits post right TKA performed 04-09-24. 6 weeks P.O amb with no AD, antalgic with slow aden. R knee demos mod edema, PROM in supine 8 deg from full extension and 100 degrees flexion. Continues to have difficulty regaining full knee ROM. Good effort with all ther ex. Discussed HEP and re-educated pt on continued participation of static stretching in ext and flex Impairments: abnormal gait, abnormal or restricted ROM, impaired balance, impaired physical strength, pain with function and weight-bearing intolerance Barriers to therapy: Increased pain, edema,bruising and knee weakness. Prognosis: good Goals Short Term Goals Goal 1 : Patient will be independent with HEP with good compliance and independence. Goal 2 : Patient will demonstrate 3-90 degrees of passive range of motion of right knee flexion. Goal 3 : Patient will ambulate >6 minutes modified independently with wheeled walker with good reciprocal gait pattern. Goal 4 : Patient will demonstrate all sit< >stand transfers and supine< >sit bed mobility, modified independent with no cues for proper sequencing. Goal 5 : Patient will ascend/descend 6-7 steps with AD with supervision, step to gait pattern. Dramatic Director Goals Goal 1 : Patient will demonstrate 0-110 degrees of active Right knee flexion in order to improve indpendence with ambulation up and down steps. NOT MET Goal 2 : Patient will demonstrate 4+/5 or better right knee strength in order to safely return to activities of interest. NOT MET Goal 3 : Patient will ambulate community distances on even and uneven surfaces, independently with no AD, normalized gait pattern and < 1/10 report of pain in leftt knee. NOT MET Goal 4 : Pt will ascend/descend 6-7 steps with railing with reciprical gait pattern independently. NOT MET Goal 5 : Patient will demonstrate good static and dynamic standing balance for >15 mintues without LOB or increase in knee pain. NOT MET Goal 6 : Pt will improve Tinetti Balance test to 28/ to indicate no fall risk. NOT MET Plan Planned modality interventions: cryotherapy Planned therapy interventions: bed mobility training, dressing changes, functional ROM exercises, gait training, home exercise program, manual therapy, neuromuscular re-education, soft tissue mobilization, strengthening, stretching, therapeutic activities and transfer training Frequency: 3x/week. Duration in weeks: 6 (05/23/24) Treatment plan discussed with: patient documented in this encounter [facility] 05-19-2024 History of Present illness Narrative Physical Therapy Physical Therapy Daily Visit Patient Name: Stacey Morelos Today's Date: 05/19/2024 Encounter Diagnoses Name Primary? Acute postoperative pain of right knee Yes Primary osteoarthritis of right knee Difficulty walking Visit Number 14 (5 in home). Time In: 1100 Time out: 1153 Timed Code Treatment: 53 minutes Total Treatment Time 53 minutes Current Problem: s/p right TKA with pain and difficulty walking. Date of Surgery: 04/09/2024 with one night stay at hospital Current deficits: Difficulty with all mobility secondary to recent right TKA and pain. Precautions: WBAT Right LE; Right TKA protocol. Pain Management: Prior level of function: Ambulation: antalgic gait pattern on Right LE. Assistive devices: FWW, cane ADL and IADL: Independent. Home Environment: Pt lives with her in a two story home with 3-4 steps to enter. Bedroom and bathroom on first floor. Objective General Visit Information: Passive ROM: Left knee 6 to 80 degrees. Joint play: hypomobile. Manual muscle testing: Left knee flexion/extension: 3-/5. Palpation: Minimal warmth upon palpation, consistent with post-operative conditions. Surgical incision intact with cheri with no drainage on dressing and left open to air; ecchymosis developing medial knee with mild edema. Special tests: Negative Sylvia Sign. Functional Mobility: Bed Mobility: supervision Sit to Stand: supervision Stair Negotiation: supervision Ambulation: Patient is ambulating with mild antalgic type pattern with FWW, reciprocal to gait pattern; good heel to toe gait pattern; SBA. Pt ambulated approx 300' x 2 with slow aden. Fair knee flexion during swing phase. Tinetti Gait and Balance Assessment: Sitting balance: Steady, safe = 1. Rises from chair: needs assistance= 0. Attempts to rise: needs assistance= 0. Immediate standing balance (first 5 seconds): Steady but uses walker or other support = 1. Standing balance: Steady but uses walker or other support = 1. Nudged: Staggers, grabs, catches self = 1. Eyes closed: Steady = 1. Turning 360 degrees: Discontinuous steps = 0 , Unsteady (grabs, staggers) = 0. Sitting down: Uses arms or not a smooth motion = 1. Balance Score: 11/24. Indication of gait: No hesitancy = 1. Step of length and height: Step to = 0. Foot clearance: L foot clears floor = 1 , R foot clears floor = 1. Step symmetry: Right and left step length no equal = 0. Step continuity: Stopping or discontinuity between steps = 0. Path: Mild/moderate deviation or uses w/ aid = 1. Trunk: No sway but flex knees or back or uses arms for stability = 1. Walking time: Heels apart = 0. Gait score: 10/20. Total Score = Balance + Gait 05/08. Tinetti tool score: < = 18 High. SUBJECTIVE: Pt reports medial knee pain 3/10 nagging, near constant. States she probably over does it throughout the day. Physical Education Intervention Manual: (10 minutes) Delivered manual ther to right LE/ knee PROM into flexion / extension, patellar mobs, STM and retro grade massage to decrease edema and improve mobility Therapeutic Exercise: (30 minutes supervised) Pt completed right LE open and closed exercises to improve right LE knee functional mobility ROM and strength. Bike seat at 18 to 16 set to hills level 3 to improve mobility of right knee Neuro ReEducation: (PRN) Focused on quad facilitation/activation to improve TKE post surgery. Quad tapping for tactile input, with improved follow through. Gait Training: Therapeutic Activity: (15 minutes supervised ) Functional activity performed to return pt to prior condition and independent with stairs, transfers and Modalities: ( minutes ) Post session pt supine with CP to R knee to decrease edema and muscle soreness Assessment & Plan Pt has completed 14 PT sessions, 5 in home visits post right TKA performed 10-30-24. 5 weeks P.O amb with SPC, antalgic with slow aden. R knee demos mod edema, PROM in supine 8 deg from full extension and 97 degrees flexion,pt. Continues to have difficulty regaining full knee ROM. Good effort with all ther ex. Impairments: abnormal gait, abnormal or restricted ROM, impaired balance, impaired physical strength, pain with function and weight-bearing intolerance Barriers to therapy: Increased pain, edema,bruising and knee weakness. Prognosis: good Goals Short Term Goals Goal 1 : Patient will be independent with HEP with good compliance and independence. Goal 2 : Patient will demonstrate 3-90 degrees of passive range of motion of right knee flexion. Goal 3 : Patient will ambulate >6 minutes modified independently with wheeled walker with good reciprocal gait pattern. Goal 4 : Patient will demonstrate all sit< >stand transfers and supine< >sit bed mobility, modified independent with no cues for proper sequencing. Goal 5 : Patient will ascend/descend 6-7 steps with AD with supervision, step to gait pattern. Senior Care Goals Goal 1 : Patient will demonstrate 0-110 degrees of active Right knee flexion in order to improve indpendence with ambulation up and down steps. NOT MET Goal 2 : Patient will demonstrate 4+/5 or better right knee strength in order to safely return to activities of interest. NOT MET Goal 3 : Patient will ambulate community distances on even and uneven surfaces, independently with no AD, normalized gait pattern and < 1/10 report of pain in leftt knee. NOT MET Goal 4 : Pt will ascend/descend 6-7 steps with railing with reciprical gait pattern independently. NOT MET Goal 5 : Patient will demonstrate good static and dynamic standing balance for >15 mintues without LOB or increase in knee pain. NOT MET Goal 6 : Pt will improve Tinetti Balance test to 28/28 to indicate no fall risk. NOT MET Plan Planned modality interventions: cryotherapy Planned therapy interventions: bed mobility training, dressing changes, functional ROM exercises, gait training, home exercise program, manual therapy, neuromuscular re-education, soft tissue mobilization, strengthening, stretching, therapeutic activities and transfer training Frequency: 3x/week. Duration in weeks: 6 (05/23/24) Treatment plan discussed with: patient documented in this encounter [facility] 05-14-2024 History of Present illness Narrative Images from the original note were not included. Subjective Patient ID: Stacey Morelos is a 58 y.o. female. RT knee: 5 weeks s/p RT TKA (DOS 04/09/24). Continues PT at [facility], Walking with a cane. Usually only painful with WB, diffuse in knee. Occas stabbing pain medial. States she has more stiffness than anything. Taking hydrocodone (ran out). Taking advil in between. Using ice. Using biofreeze. Admits swelling, ankle swelling as well. Admits N/T in lower leg. States incision does feel warm at times. Does not wake at HS. Doing HEP. Pain is 5-6/10 today. Objective Ortho Exam Knee Musculoskeletal Exam Gait Limp: right Assistive device: cane Inspection Right Erythema: none Effusion: mild Edema: none Ecchymosis: none Deformity: none Alignment: normal Palpation Right Tenderness: present Palpation additional comments: Over the incision and trace diffuse Range of Motion Right Active extension: 5 Active flexion: 90 Instability Instability additional comments: No ligament laxity, firm endpoints Neurovascular Neurovascular additional comments: +1 pitting edema in lower leg XR knee 1 or 2 views right Imaging Result: AP and lateral of right knee showed surgical position and alignment of prosthetic components without evidence of loosening or wear to the femoral, tibial, or patellar components. The alignment appeared to be anatomic. There was no evidence of accelerated or asymmetric wear to the patellar button or tibial tray. There was no evidence of fracture and/or dislocation. Impression: Unremarkable right total knee arthroplasty. Assessment/Plan Encounter Diagnoses: ICD-10-CM 1. S/P total knee arthroplasty, right Z96.651 traMADol (Ultram) 50 MG tablet 2. Primary osteoarthritis of right knee M17.11 XR knee 1 or 2 views right Discussion of f/U in 6 weeks with xrays of the knee, continue with therapy, discussed to try to avoid nsaids and take tyl if needed. This will be the last refill of tramadol. documented in this encounter [facility] 05-12-2024 History of Present illness Narrative Physical Therapy Physical Therapy Daily Visit Patient Name: Stacey Morelos Today's Date: 05/12/2024 Encounter Diagnoses Name Primary? Primary osteoarthritis of right knee Yes Acute postoperative pain of right knee Difficulty walking Visit Number 11 (5 in home). Time In: 1255 PM Time out: 1405 PM Timed Code Treatment: 54 minutes Total Treatment Time: 64 minutes Current Problem: s/p right TKA with pain and difficulty walking. Date of Surgery: 04/09/2024 with one night stay at hospital Current deficits: Difficulty with all mobility secondary to recent right TKA and pain. Precautions: WBAT Right LE; Right TKA protocol. Pain Management: Prior level of function: Ambulation: antalgic gait pattern on Right LE. Assistive devices: FWW, cane ADL and IADL: Independent. Home Environment: Pt lives with her in a two story home with 3-4 steps to enter. Bedroom and bathroom on first floor. Objective General Visit Information: Passive ROM: Left knee 6 to 80 degrees. Joint play: hypomobile. Manual muscle testing: Left knee flexion/extension: 3-/5. Palpation: Minimal warmth upon palpation, consistent with post-operative conditions. Surgical incision intact with cheri with no drainage on dressing and left open to air; ecchymosis developing medial knee with mild edema. Special tests: Negative Sylvia Sign. Functional Mobility: Bed Mobility: supervision Sit to Stand: supervision Stair Negotiation: supervision Ambulation: Patient is ambulating with mild antalgic type pattern with FWW, reciprocal to gait pattern; good heel to toe gait pattern; SBA. Pt ambulated approx 300' x 2 with slow aden. Fair knee flexion during swing phase. Tinetti Gait and Balance Assessment: Sitting balance: Steady, safe = 1. Rises from chair: needs assistance= 0. Attempts to rise: needs assistance= 0. Immediate standing balance (first 5 seconds): Steady but uses walker or other support = 1. Standing balance: Steady but uses walker or other support = 1. Nudged: Staggers, grabs, catches self = 1. Eyes closed: Steady = 1. Turning 360 degrees: Discontinuous steps = 0 , Unsteady (grabs, staggers) = 0. Sitting down: Uses arms or not a smooth motion = 1. Balance Score: 16. Indication of gait: No hesitancy = 1. Step of length and height: Step to = 0. Foot clearance: L foot clears floor = 1 , R foot clears floor = 1. Step symmetry: Right and left step length no equal = 0. Step continuity: Stopping or discontinuity between steps = 0. Path: Mild/moderate deviation or uses w/ aid = 1. Trunk: No sway but flex knees or back or uses arms for stability = 1. Walking time: Heels apart = 0. Gait score: 12. Total Score = Balance + Gait 05/08. Tinetti tool score: < = 18 High. SUBJECTIVE: Pt reports she continues to have knee soreness/pain throughout the day. Reports she over did it couple weeks ago and continues to have medial knee pain. Physical Education Intervention Manual: (14 minutes) Delivered manual ther to right LE/ knee PROM into flexion / extension, patellar mobs, STM and retro grade massage to decrease edema and improve mobility Therapeutic Exercise: (30 minutes supervised) Pt completed right LE open and closed exercises to improve right LE knee functional mobility ROM and strength. Nu-step (8 minutes unsupervised) Neuro ReEducation: (PRN) Focused on quad facilitation/activation to improve TKE post surgery. Quad tapping for tactile input, with improved follow through. Gait Training: Therapeutic Activity: (10 minutes) All transfers are performed at mod indep. Modalities: ( minutes ) Post session pt supine with CP to R knee to decrease edema and muscle soreness Assessment & Plan Pt has completed 11 PT sessions, 5 in home visits post right TKA performed 04-09-24. 4 weeks P.O amb with SPC, antalgic with slow aden. R knee demos mod edema, PROM in supine 5 deg from full extension and 94 degrees flexion, pt. Continues to demonstrate limited knee ROM. Good effort with all ther ex but medial knee pain is a barrier. Limping gait pattern. Pt purchased at oversized ice pack today. Impairments: abnormal gait, abnormal or restricted ROM, impaired balance, impaired physical strength, pain with function and weight-bearing intolerance Barriers to therapy: Increased pain, edema,bruising and knee weakness. Prognosis: good Goals Short Term Goals Goal 1 : Patient will be independent with HEP with good compliance and independence. Goal 2 : Patient will demonstrate 3-90 degrees of passive range of motion of right knee flexion. Goal 3 : Patient will ambulate >6 minutes modified independently with wheeled walker with good reciprocal gait pattern. Goal 4 : Patient will demonstrate all sit< >stand transfers and supine< >sit bed mobility, modified independent with no cues for proper sequencing. Goal 5 : Patient will ascend/descend 6-7 steps with AD with supervision, step to gait pattern. Dramatic Director Goals Goal 1 : Patient will demonstrate 0-110 degrees of active Right knee flexion in order to improve indpendence with ambulation up and down steps. NOT MET Goal 2 : Patient will demonstrate 4+/5 or better right knee strength in order to safely return to activities of interest. NOT MET Goal 3 : Patient will ambulate community distances on even and uneven surfaces, independently with no AD, normalized gait pattern and < 1/10 report of pain in leftt knee. NOT MET Goal 4 : Pt will ascend/descend 6-7 steps with railing with reciprical gait pattern independently. NOT MET Goal 5 : Patient will demonstrate good static and dynamic standing balance for >15 mintues without LOB or increase in knee pain. NOT MET Goal 6 : Pt will improve Tinetti Balance test to 28/28 to indicate no fall risk. NOT MET Plan Planned modality interventions: cryotherapy Planned therapy interventions: bed mobility training, dressing changes, functional ROM exercises, gait training, home exercise program, manual therapy, neuromuscular re-education, soft tissue mobilization, strengthening, stretching, therapeutic activities and transfer training Frequency: 3x/week. Duration in weeks: 6 (05/23/24) Treatment plan discussed with: patient documented in this encounter [facility] 05-07-2024 History of Present illness Narrative Physical Therapy Physical Therapy Daily Visit Patient Name: Stacey Morelos Today's Date: 05/07/2024 Encounter Diagnoses Name Primary? Primary osteoarthritis of right knee Yes Acute postoperative pain of right knee Difficulty walking Visit Number 10 (5 in home). Time In: 1:55 PM Time out: 2:52 PM Timed Code Treatment: 42 minutes Total Treatment Time: 57 minutes Current Problem: s/p right TKA with pain and difficulty walking. Date of Surgery: 04/09/2024 with one night stay at hospital Current deficits: Difficulty with all mobility secondary to recent right TKA and pain. Precautions: WBAT Right LE; Right TKA protocol. Pain Management: Prior level of function: Ambulation: antalgic gait pattern on Right LE. Assistive devices: FWW, cane ADL and IADL: Independent. Home Environment: Pt lives with her in a two story home with 3-4 steps to enter. Bedroom and bathroom on first floor. Objective General Visit Information: Passive ROM: Left knee 6 to 80 degrees. Joint play: hypomobile. Manual muscle testing: Left knee flexion/extension: 3-/5. Palpation: Minimal warmth upon palpation, consistent with post-operative conditions. Surgical incision intact with cheri with no drainage on dressing and left open to air; ecchymosis developing medial knee with mild edema. Special tests: Negative Sylvia Sign. Functional Mobility: Bed Mobility: supervision Sit to Stand: supervision Stair Negotiation: supervision Ambulation: Patient is ambulating with mild antalgic type pattern with FWW, reciprocal to gait pattern; good heel to toe gait pattern; SBA. Pt ambulated approx 300' x 2 with slow aden. Fair knee flexion during swing phase. Tinetti Gait and Balance Assessment: Sitting balance: Steady, safe = 1. Rises from chair: needs assistance= 0. Attempts to rise: needs assistance= 0. Immediate standing balance (first 5 seconds): Steady but uses walker or other support = 1. Standing balance: Steady but uses walker or other support = 1. Nudged: Staggers, grabs, catches self = 1. Eyes closed: Steady = 1. Turning 360 degrees: Discontinuous steps = 0 , Unsteady (grabs, staggers) = 0. Sitting down: Uses arms or not a smooth motion = 1. Balance Score: 16. Indication of gait: No hesitancy = 1. Step of length and height: Step to = 0. Foot clearance: L foot clears floor = 1 , R foot clears floor = 1. Step symmetry: Right and left step length no equal = 0. Step continuity: Stopping or discontinuity between steps = 0. Path: Mild/moderate deviation or uses w/ aid = 1. Trunk: No sway but flex knees or back or uses arms for stability = 1. Walking time: Heels apart = 0. Gait score: 10/20. Total Score = Balance + Gait 05/08. Tinetti tool score: < = 18 High. SUBJECTIVE: Pt reports R knee increased soreness pain up to 8/10 at times Physical Education Intervention Manual: (12 minutes) Delivered manual ther to right LE/ knee PROM into flexion / extension, patellar mobs, STM and retro grade massage to decrease edema and improve mobility Therapeutic Exercise: (30 minutes supervised) Pt completed right LE open and closed exercises to improve right LE knee functional mobility ROM and strength. Nu-step (5 minutes unsupervised) Neuro ReEducation: (PRN) Focused on quad facilitation/activation to improve TKE post surgery. Quad tapping for tactile input, with improved follow through. Gait Training: Therapeutic Activity: All transfers are performed at mod indep. Modalities: (10 minutes ) Post session pt supine with CP to R knee to decrease edema and muscle soreness Assessment & Plan Pt has completed 10 PT sessions, 5 in home visits post right TKA performed 04-09-24. 4 weeks P.O amb with SPC, antalgic with slow aden. R knee demos mod edema, PROM in supine 5 deg from full extension and 94 degrees flexion, quad lag with SLR. Verbal cuing with manual ther to avoid muscle guarding, fair follow through. Pt performed open and closed chain ther ex. Tolerance was lower today due to knee soreness, progress as able next session. Discussed HEP and the importance of doing knee extension stretches. and pt reports compliant with. Impairments: abnormal gait, abnormal or restricted ROM, impaired balance, impaired physical strength, pain with function and weight-bearing intolerance Barriers to therapy: Increased pain, edema,bruising and knee weakness. Prognosis: good Goals Short Term Goals Goal 1 : Patient will be independent with HEP with good compliance and independence. Goal 2 : Patient will demonstrate 3-90 degrees of passive range of motion of right knee flexion. Goal 3 : Patient will ambulate >6 minutes modified independently with wheeled walker with good reciprocal gait pattern. Goal 4 : Patient will demonstrate all sit< >stand transfers and supine< >sit bed mobility, modified independent with no cues for proper sequencing. Goal 5 : Patient will ascend/descend 6-7 steps with AD with supervision, step to gait pattern. Senior Care Goals Goal 1 : Patient will demonstrate 0-110 degrees of active Right knee flexion in order to improve indpendence with ambulation up and down steps. NOT MET Goal 2 : Patient will demonstrate 4+/5 or better right knee strength in order to safely return to activities of interest. NOT MET Goal 3 : Patient will ambulate community distances on even and uneven surfaces, independently with no AD, normalized gait pattern and < 1/10 report of pain in leftt knee. NOT MET Goal 4 : Pt will ascend/descend 6-7 steps with railing with reciprical gait pattern independently. NOT MET Goal 5 : Patient will demonstrate good static and dynamic standing balance for >15 mintues without LOB or increase in knee pain. NOT MET Goal 6 : Pt will improve Tinetti Balance test to 28/28 to indicate no fall risk. NOT MET Plan Planned modality interventions: cryotherapy Planned therapy interventions: bed mobility training, dressing changes, functional ROM exercises, gait training, home exercise program, manual therapy, neuromuscular re-education, soft tissue mobilization, strengthening, stretching, therapeutic activities and transfer training Frequency: 3x/week. Duration in weeks: 6 (05/23/24) Treatment plan discussed with: patient documented in this encounter [facility] 05-06-2024 Telephone encounter Note Pdmp reviewed. Educated patient that we will begin tapering her pain meds soon. Will send in refill for norco but she will need to start spacing them every 8 hours instead of every 6. [facility] 05-06-2024 Miscellaneous Notes Pdmp reviewed. Educated patient that we will begin tapering her pain meds soon. Will send in refill for norco but she will need to start spacing them every 8 hours instead of every 6. Pt called and left vm asking for pain pills refilled from [facility]. This was her message: I have 2 left for today and then I will be out. And my other question is, once this is refilled, I will be out Sunday. So I did not know how that could be handled. If you could call me back [phone]. [facility] [place] Last refilled 05/01/24 documented in this encounter [facility] 05-06-2024 Telephone encounter Note Pt called and left vm asking for pain pills refilled from [facility]. This was her message: I have 2 left for today and then I will be out. And my other question is, once this is refilled, I will be out Sunday. So I did not know how that could be handled. If you could call me back [phone]. [facility] [place]. Last refilled 05/01/24 [facility] 04-30-2024 Telephone encounter Note Pt called and left vm stated she is almost out of pain pills and knows we can only call in 5 at a time. She had RT TKA 04/09/24. If you she could get [facility] [place]. Last refill was on 04/24/24. Her call back [phone] [facility] 04-30-2024 Miscellaneous Notes Pt called and left vm stated she is almost out of pain pills and knows we can only call in 5 at a time. She had RT TKA 04/09/24. If you she could get a refill sent to [facility] in [place]. Last refill was on 04/24/24. Her call back [phone] documented in this encounter [facility] 04-24-2024 Note Addended by: ANDRESSA ALANIS on: 04/24/2024 01:43 PM Modules accepted: Orders [facility] 04-24-2024 Miscellaneous Notes Addended by: ANDRESSA ALANIS on: 04/24/2024 01:43 PM Modules accepted: Orders Pt called asking for a refill on [facility] [place] documented in this encounter [facility] 04-24-2024 Telephone encounter Note Pt called asking for a refill on [facility] [place] [facility] 04-23-2024 History of Present illness Narrative Physical Therapy Physical Therapy Daily Visit Patient Name: Stacey Morelos Today's Date: 04/23/2024 Encounter Diagnoses Name Primary? Primary osteoarthritis of right knee Yes Acute postoperative pain of right knee Difficulty walking Arthritis of right knee Visit Number 5 (5 in home). Time In: 1330; Time out: 1430 Timed Code Treatment Minutes: 53 minutes Total Treatment Time: 60 minutes Current Problem: s/p right TKA with pain and difficulty walking. Pt is being seen today for follow up visit for s/p right TKA. Date of Surgery: 02/10/2024 with one night stay at hospital. . Current deficits: Difficulty with all mobility secondary to recent right TKA and pain. Precautions: WBAT Right LE; Right TKA protocol. Pain Management: The patient is complaining of pain located in the Righ knee and thigh region. Pain rating 7/10. The pain is improved by ice and medication 1 every 6 hours of Kelin and Tylenol as needed. The pain is aggravated by activity. The pain is described as aching, throbbing and stiffness. Prior level of function: Ambulation: antalgic gait pattern on Right LE. Assistive devices: FWW, cane ADL and IADL: Independent. Home Environment: Pt lives with her in a two story home with 3-4 steps to enter. Bedroom and bathroom on first floor. Objective General Visit Information: Passive ROM: Left knee 6 to 80 degrees. Joint play: hypomobile. Manual muscle testing: Left knee flexion/extension: 3-/5. Palpation: Minimal warmth upon palpation, consistent with post-operative conditions. Surgical incision intact with cheri with no drainage on dressing and left open to air; ecchymosis developing medial knee with mild edema. Special tests: Negative Sylvia Sign. Functional Mobility: Bed Mobility: supervision Sit to Stand: supervision Stair Negotiation: supervision Ambulation: Patient is ambulating with mild antalgic type pattern with FWW, reciprocal to gait pattern; good heel to toe gait pattern; SBA. Pt ambulated approx 300' x 2 with slow aden. Fair knee flexion during swing phase. Tinetti Gait and Balance Assessment: Sitting balance: Steady, safe = 1. Rises from chair: needs assistance= 0. Attempts to rise: needs assistance= 0. Immediate standing balance (first 5 seconds): Steady but uses walker or other support = 1. Standing balance: Steady but uses walker or other support = 1. Nudged: Staggers, grabs, catches self = 1. Eyes closed: Steady = 1. Turning 360 degrees: Discontinuous steps = 0 , Unsteady (grabs, staggers) = 0. Sitting down: Uses arms or not a smooth motion = 1. Balance Score: /16. Indication of gait: No hesitancy = 1. Step of length and height: Step to = 0. Foot clearance: L foot clears floor = 1 , R foot clears floor = 1. Step symmetry: Right and left step length no equal = 0. Step continuity: Stopping or discontinuity between steps = 0. Path: Mild/moderate deviation or uses w/ aid = 1. Trunk: No sway but flex knees or back or uses arms for stability = 1. Walking time: Heels apart = 0. Gait score: 12. Total Score = Balance + Gait 05/08. Tinetti tool score: < = 18 High. SUBJECTIVE: Amb with walker, but reports walking at home without device. Holds on to furniture. Pain: 7/10. Physical Education Intervention Physical Therapy Education: Pt was educated on the importance of cyrotherapy and elevation. Manual (15 minutes) STM to reduce swelling around knee and thigh. PROM for knee extension and flexion. Therapeutic Exercise : (30 minutes) Pt completed right LE open and closed exercises to improve ROM and strength to improve recovery. NuStep to improve knee ROM, moved seat from 16 to 14. Neuro ReEducation: (8 minutes) Focused on quad facilitation/activation to improve TKE post surgery. Gait Training: Therapeutic Activity: All transfers are performed at mod [facility]. Assessment & Plan Assessment PROM: 15 to 70 degrees. LEFS 23/80 Quad lag of 5 degrees during SLR Wound is healing well. No obvious signs of infection. Has a few sterri strips attached. Instructed Pt through LE ROM and strengthening exercises to improve tolerance to activities. Cues needed to improve technique and to reduce tempo. Good tolerance to additions and first OP therapy session. Pt will CP at home. Impairments: abnormal gait, abnormal or restricted ROM, impaired balance, impaired physical strength, pain with function and weight-bearing intolerance Barriers to therapy: Increased pain, edema,bruising and knee weakness. Prognosis: good Goals Short Term Goals Goal 1 : Patient will be independent with HEP with good compliance and independence. Goal 2 : Patient will demonstrate 3-90 degrees of passive range of motion of right knee flexion. Goal 3 : Patient will ambulate >6 minutes modified independently with wheeled walker with good reciprocal gait pattern. Goal 4 : Patient will demonstrate all sit< >stand transfers and supine< >sit bed mobility, modified independent with no cues for proper sequencing. Goal 5 : Patient will ascend/descend 6-7 steps with AD with supervision, step to gait pattern. Senior Care Goals Goal 1 : Patient will demonstrate 0-110 degrees of active Right knee flexion in order to improve indpendence with ambulation up and down steps. Goal 2 : Patient will demonstrate 4+/5 or better right knee strength in order to safely return to activities of interest. Goal 3 : Patient will ambulate community distances on even and uneven surfaces, independently with no AD, normalized gait pattern and < 1/10 report of pain in leftt knee. Goal 4 : Pt will ascend/descend 6-7 steps with railing with reciprical gait pattern independently. Goal 5 : Patient will demonstrate good static and dynamic standing balance for >15 mintues without LOB or increase in knee pain. Goal 6 : Pt will improve Tinetti Balance test to 28/28 to indicate no fall risk. Plan Planned modality interventions: cryotherapy Planned therapy interventions: bed mobility training, dressing changes, functional ROM exercises, gait training, home exercise program, manual therapy, neuromuscular re-education, soft tissue mobilization, strengthening, stretching, therapeutic activities and transfer training Frequency: 3x/week. Duration in weeks: 6 (05/23/24) Treatment plan discussed with: patient Cosigned by Yvette Richardson, PT at 04/24/2024 2:57 PM EST documented in this encounter [facility] 04-21-2024 Telephone encounter Note Patient called needing med refill. Surgery 04/09 RT TKA [phone] [facility] 04-21-2024 Miscellaneous Notes Patient called needing med refill. Surgery 04/09 RT TKA [phone] documented in this encounter [facility] 04-21-2024 History of Present illness Narrative Physical Therapy Physical Therapy Daily Visit Patient Name: Stacey Morelos Today's Date: 04/21/2024 Subjective Current Problem: s/p right TKA with pain and difficulty walking. Pt is being seen today for follow up visit for s/p right TKA. Date of Surgery: 02/10/2024 with one night stay at hospital. . Current deficits: Difficulty with all mobility secondary to recent right TKA and pain. Visit Number 5. Time In: 9:00 am; Time out: 9:25am Total time: 25 minutes [id number] TherEx x 16 minutes [id number] gait training x 9 minutes Precautions: WBAT Right LE; Right TKA protocol. Pain Management: The patient is complaining of pain located in the Righ knee and thigh region. Pain rating 7/10. The pain is improved by ice and medication 1 every 6 hours of Kelin and Tylenol as needed. The pain is aggravated by activity. The pain is described as aching, throbbing and stiffness. Prior level of function: Ambulation: antalgic gait pattern on Right LE. Assistive devices: FWW, cane ADL and IADL: Independent. Home Environment: Pt lives with her in a two story home with 3-4 steps to enter. Bedroom and bathroom on first floor. Objective General Visit Information: Passive ROM: Left knee 6 to 80 degrees. Joint play: hypomobile. Manual muscle testing: Left knee flexion/extension: 3-/5. Palpation: Minimal warmth upon palpation, consistent with post-operative conditions. Surgical incision intact with cheri with no drainage on dressing and left open to air; ecchymosis developing medial knee with mild edema. Special tests: Negative Sylvia Sign. Functional Mobility: Bed Mobility: supervision Sit to Stand: supervision Stair Negotiation: supervision Ambulation: Patient is ambulating with mild antalgic type pattern with FWW, reciprocal to gait pattern; good heel to toe gait pattern; SBA. Pt ambulated approx 300' x 2 with slow aden. Fair knee flexion during swing phase. Tinetti Gait and Balance Assessment: Sitting balance: Steady, safe = 1. Rises from chair: needs assistance= 0. Attempts to rise: needs assistance= 0. Immediate standing balance (first 5 seconds): Steady but uses walker or other support = 1. Standing balance: Steady but uses walker or other support = 1. Nudged: Staggers, grabs, catches self = 1. Eyes closed: Steady = 1. Turning 360 degrees: Discontinuous steps = 0 , Unsteady (grabs, staggers) = 0. Sitting down: Uses arms or not a smooth motion = 1. Balance Score: 11/24. Indication of gait: No hesitancy = 1. Step of length and height: Step to = 0. Foot clearance: L foot clears floor = 1 , R foot clears floor = 1. Step symmetry: Right and left step length no equal = 0. Step continuity: Stopping or discontinuity between steps = 0. Path: Mild/moderate deviation or uses w/ aid = 1. Trunk: No sway but flex knees or back or uses arms for stability = 1. Walking time: Heels apart = 0. Gait score: 10/20. Total Score = Balance + Gait 05/08. Tinetti tool score: < = 18 High. Physical Education Intervention Physical Therapy Education: Pt was educated on the importance of cyrotherapy and elevation. Reviewed proper pillow placement under LE to maintain good extension. Stressed the importance also of ambulating at at least every other hour for 2-5 minutes duration and completion of HEP 2x/day. Patient was educated with regards to signs and symptoms to monitor with respect to blood clots and infection. Therapeutic Exercise : Pt completed right LE supine exercises of glut sets, quad sets, heel slides and ankle pumps (hourly) at this time, 10x. Pt completed 10x of knee flexion with gentle flexion stretch with plastic bag. Completed standing heel raises and right marches, hip abduction and ham curls, standing SLR, mini squats. Completed standing knee flexion on step stool for gentle rocking to promote flexion. HEP upated and instructed. Gait Training: Gait training this date with FWW with instruction for reciprocal gait pattern for right affective LE with increase cues for heel to toe pattern and knee flexion during swing. Worked on pre gait training toward str cane ambulation with walking along kitchen counter with one handed support 15' x 4 both forward and retro; SBA with minimal antelgic pattern. At time patient ambulates in home with no device. Therapeutic Activity: All transfers are performed at [facility]. Assessment & Plan Assessment Impairments: abnormal gait, abnormal or restricted ROM, impaired balance, impaired physical strength, pain with function and weight-bearing intolerance Barriers to therapy: Increased pain, edema,bruising and knee weakness. Prognosis: good Goals Short Term Goals Goal 1 : Patient will be independent with HEP with good compliance and independence. Goal 2 : Patient will demonstrate 3-90 degrees of passive range of motion of right knee flexion. Goal 3 : Patient will ambulate >6 minutes modified independently with wheeled walker with good reciprocal gait pattern. Goal 4 : Patient will demonstrate all sit< >stand transfers and supine< >sit bed mobility, modified independent with no cues for proper sequencing. Goal 5 : Patient will ascend/descend 6-7 steps with AD with supervision, step to gait pattern. Dramatic Director Goals Goal 1 : Patient will demonstrate 0-110 degrees of active Right knee flexion in order to improve indpendence with ambulation up and down steps. Goal 2 : Patient will demonstrate 4+/5 or better right knee strength in order to safely return to activities of interest. Goal 3 : Patient will ambulate community distances on even and uneven surfaces, independently with no AD, normalized gait pattern and < 1/10 report of pain in leftt knee. Goal 4 : Pt will ascend/descend 6-7 steps with railing with reciprical gait pattern independently. Goal 5 : Patient will demonstrate good static and dynamic standing balance for >15 mintues without LOB or increase in knee pain. Goal 6 : Pt will improve Tinetti Balance test to 28/28 to indicate no fall risk. Plan Planned modality interventions: cryotherapy Planned therapy interventions: bed mobility training, dressing changes, functional ROM exercises, gait training, home exercise program, manual therapy, neuromuscular re-education, soft tissue mobilization, strengthening, stretching, therapeutic activities and transfer training Frequency: 3x/week. Duration in weeks: 6 Treatment plan discussed with: patient Plan details: Educated to continue icing and elevating. Pt could not find her cane today to trial. [facility] History of Present illness Narrative Physical Therapy Physical Therapy Daily Visit Patient Name: Stacey Morelos Today's Date: 04/18/2024 Subjective Current Problem: s/p right TKA with pain and difficulty walking. Pt is being seen today for follow up visit for s/p right TKA. Date of Surgery: 02/10/2024 with one night stay at hospital. . Current deficits: Difficulty with all mobility secondary to recent right TKA and pain. Visit Number 4. Time In: 9:00 am; Time out: 9:38 am Total time: 38 minutes [id number] TherEx x 30 minutes [id number] gait training x 8 minutes Precautions: WBAT Right LE; Right TKA protocol. Pain Management: The patient is complaining of pain located in the Righ knee and thigh region. Pain rating 7/10. The pain is improved by ice and medication 1 every 6 hours of Kelin and Tylenol as needed. The pain is aggravated by activity. The pain is described as aching, throbbing and stiffness. Prior level of function: Ambulation: antalgic gait pattern on Right LE. Assistive devices: FWW, cane ADL and IADL: Independent. Home Environment: Pt lives with her in a two story home with 3-4 steps to enter. Bedroom and bathroom on first floor. Objective General Visit Information: Passive ROM: Left knee 6 to 80 degrees. Joint play: hypomobile. Manual muscle testing: Left knee flexion/extension: 3-/5. Palpation: Minimal warmth upon palpation, consistent with post-operative conditions. Surgical incision intact with cheri with no drainage on dressing and left open to air; ecchymosis developing medial knee with mild edema. Special tests: Negative Sylvia Sign. Functional Mobility: Bed Mobility: NT Sit to Stand: SBA Stair Negotiation: SBA Ambulation: Patient is ambulating with mild antalgic type pattern with FWW, step to gait pattern; good heel to toe gait pattern; SBA. Pt ambulated approx 60' x 2 with slow aden. Limited knee flexion during swing phase. Tinetti Gait and Balance Assessment: Sitting balance: Steady, safe = 1. Rises from chair: needs assistance= 0. Attempts to rise: needs assistance= 0. Immediate standing balance (first 5 seconds): Steady but uses walker or other support = 1. Standing balance: Steady but uses walker or other support = 1. Nudged: Staggers, grabs, catches self = 1. Eyes closed: Steady = 1. Turning 360 degrees: Discontinuous steps = 0 , Unsteady (grabs, staggers) = 0. Sitting down: Uses arms or not a smooth motion = 1. Balance Score: 11/24. Indication of gait: No hesitancy = 1. Step of length and height: Step to = 0. Foot clearance: L foot clears floor = 1 , R foot clears floor = 1. Step symmetry: Right and left step length no equal = 0. Step continuity: Stopping or discontinuity between steps = 0. Path: Mild/moderate deviation or uses w/ aid = 1. Trunk: No sway but flex knees or back or uses arms for stability = 1. Walking time: Heels apart = 0. Gait score: 10/20. Total Score = Balance + Gait 05/08. Tinetti tool score: < = 18 High. Physical Education Intervention Physical Therapy Education: Pt was educated on the importance of cyrotherapy and elevation. Reviewed proper pillow placement under LE to maintain good extension. Stressed the importance also of ambulating at at least every other hour for 2-5 minutes duration and completion of HEP 2x/day. Patient was educated with regards to signs and symptoms to monitor with respect to blood clots and infection. Therapeutic Exercise : Pt completed right LE supine exercises of glut sets, quad sets, heel slides and ankle pumps (hourly) at this time, 10x. Pt completed 10x of knee flexion with gentle flexion stretch with plastic bag. Completed standing heel raises and right marches, hip abduction and ham curls, standing SLR; added mini squats. Completed standing knee flexion on step stool for gentle rocking to promote flexion. HEP upated and instructed. Gait Training: Gait training this date with FWW with instruction for step to gait pattern for right affective LE with increase cues for heel to toe pattern and knee flexion during swing. Worked on pre gait training toward str cane ambulation with walking along kitchen counter with one handed support 15' x 4 both forward and retro; SBA with minimal antelgic pattern. Therapeutic Activity: Worked on proper sit to stand, stand to sit transfers this date from recliner chair with good carryover with minimal with verbal cues for proper sequencing and hand placement. Assessment & Plan Assessment Impairments: abnormal gait, abnormal or restricted ROM, impaired balance, impaired physical strength, pain with function and weight-bearing intolerance Barriers to therapy: Increased pain, edema,bruising and knee weakness. Prognosis: good Goals Short Term Goals Goal 1 : Patient will be independent with HEP with good compliance and independence. Goal 2 : Patient will demonstrate 3-90 degrees of passive range of motion of right knee flexion. Goal 3 : Patient will ambulate >6 minutes modified independently with wheeled walker with good reciprocal gait pattern. Goal 4 : Patient will demonstrate all sit< >stand transfers and supine< >sit bed mobility, modified independent with no cues for proper sequencing. Goal 5 : Patient will ascend/descend 6-7 steps with AD with supervision, step to gait pattern. Senior Care Goals Goal 1 : Patient will demonstrate 0-110 degrees of active Right knee flexion in order to improve indpendence with ambulation up and down steps. Goal 2 : Patient will demonstrate 4+/5 or better right knee strength in order to safely return to activities of interest. Goal 3 : Patient will ambulate community distances on even and uneven surfaces, independently with no AD, normalized gait pattern and < 1/10 report of pain in leftt knee. Goal 4 : Pt will ascend/descend 6-7 steps with railing with reciprical gait pattern independently. Goal 5 : Patient will demonstrate good static and dynamic standing balance for >15 mintues without LOB or increase in knee pain. Goal 6 : Pt will improve Tinetti Balance test to 28/28 to indicate no fall risk. Plan Planned modality interventions: cryotherapy Planned therapy interventions: bed mobility training, dressing changes, functional ROM exercises, gait training, home exercise program, manual therapy, neuromuscular re-education, soft tissue mobilization, strengthening, stretching, therapeutic activities and transfer training Frequency: 3x/week. Duration in weeks: 6 Treatment plan discussed with: patient Plan details: Educated to continue icing and elevating. Will trial cane next visit. documented in this encounter [facility] 04-17-2024 History of Present illness Narrative Images from the original note were not included. HISTORY OF PRESENT ILLNESS: Stacey Morelos is an 58 y.o. @ female. Follow up RT TKA RT knee: 1st po 8 days s/p RT TKA (04/09/24) Walking well with walker. Taking TYL and oxy with relief. Pain 5/10, describes as aching. She has been wearing MESHA hose but showered today and could not get them back on. Getting home PT. Notes some tingling in lower leg surgery. Taking ASA 325 and Fe. [place] intact, no redness or drainage. Denies fever or chills. MEDICATION: Current Outpatient Medications on File Prior to Visit Medication Sig Dispense Refill albuterol HFA 90 mcg/act inhaler every 4 (four) hours atorvastatin (Lipitor) 10 MG tablet Take 10 mg by mouth in the morning. B Complex-Folic Acid (SUPER B COMPLEX MAXI PO) Super B Complex buPROPion XL (Wellbutrin XL) 300 MG 24 hr tablet Take 1 tablet by mouth in the morning. gtltfdxqzi-ppqtbxbqoktkd-fndsbtaf 50-325-40 MG tablet take 1 TO 2 tablets by mouth every 6 hours if needed for headache calcium carbonate (Tums) 500 MG chewable tablet Chew 500 mg Daily ferrous sulfate ER 142 mg ER tablet Take by mouth Daily. montelukast (Singulair) 10 MG tablet Take 1 tablet by mouth at bedtime Multiple Vitamin (multivitamin) capsule Take 1 capsule by mouth Daily oxyCODONE (Roxicodone) 5 MG immediate release tablet Take 1 tablet (5 mg) by mouth every 6 (six) hours if needed for moderate pain for up to 5 days 20 tablet 0 sertraline (Zoloft) 50 MG tablet Synthroid 50 MCG tablet Take 1 tablet by mouth in the morning. traMADol (Ultram) 50 MG tablet Take by mouth [DISCONTINUED] oxyCODONE (Roxicodone) 5 MG immediate release tablet Take 1 tablet (5 mg) by mouth every 6 (six) hours if needed for moderate pain for up to 5 days 20 tablet 0 No current facility-administered medications on file prior to visit. MEDICAL HISTORY: Past Medical History: Diagnosis Date Acute asthma (CMS/HCC) Allergies Anemia Arthritis Asthma (CMS/HCC) Breast cancer screening by mammogram Depression (CMS/HCC) Elevated blood sugar raised blood sugar History of migraine headaches Hypertension (CMS/HCC) Hypothyroidism (CMS/HCC) Obesity (BMI 30-39.9) Screening for osteoporosis ALLERGIES: No Known Allergies VITALS: Visit Vitals OB Status Having periods Smoking Status Never PHYSICAL EXAM: Ortho Exam RT KNEE ROM 0-80 Pre-tibial edema Calf soft NV intact Walking with walker ASSESSMENT: ICD-10-CM 1. S/P total knee arthroplasty, right Z96.651 PLAN: I reviewed surgical findings with patient and discussed plan of care. Recommend that patient continues with MESHA jalloh and ASA until 4 weeks post op. Encouraged patient to continue working on ROM and ambulation. Reminded to hold off non-urgent dental appts for 6 months post op- and abx prophylaxis following: Follow up with Kathy in 4 weeks with X-rays. Questions answered in laymen terms at the bedside. The diagnosis, home exercise plan and any ongoing restrictions/ recommendations reviewed. If unable to be reached in office, I recommend evaluation at nearest Emergency Room if any symptoms worsened or new symptoms develop for requiring urgent evaluation. Dr. Desouza obtained history and examined the patient, I am acting as scribe for Dr. Desouza/, RN I did advise the patient that I am leaving my current practice to practice in another state but my colleagues are willing to see her if she has any problems or concerns or if she desires a referral to another retail service specialist we would be happy to make referral, she states she would like to continue her care here. Maral Desouza D.O. documented in this encounter [facility] 04-16-2024 History of Present illness Narrative Physical Therapy Physical Therapy Daily Visit Patient Name: Stacey Morelos Today's Date: 04/16/2024 Subjective Current Problem: s/p right TKA with pain and difficulty walking. Pt is being seen today for follow up visit for s/p right TKA. Pt voiced she was very stiff today and that her anterior majano down to foot was till numb but able to move foot well. Pt also voiced her right elbow was also sore from recent fracture that she has. Date of Surgery: 02/10/2024 with one night stay at hospital. . Current deficits: Difficulty with all mobility secondary to recent right TKA and pain. Visit Number 3. Time In: 9:00 am; Time out: 9:38 am Total time: 38 minutes [id number] TherEx x 30 minutes 49765 gait training x 8 minutes Precautions: WBAT Right LE; Right TKA protocol. Pain Management: The patient is complaining of pain located in the Righ knee and thigh region. Pain rating 7/10. The pain is improved by ice and medication 1 every 6 hours of Kelin and Tylenol as needed. The pain is aggravated by activity. The pain is described as aching, throbbing and stiffness. Prior level of function: Ambulation: antalgic gait pattern on Right LE. Assistive devices: FWW, cane ADL and IADL: Independent. Home Environment: Pt lives with her in a two story home with 3-4 steps to enter. Bedroom and bathroom on first floor. Objective General Visit Information: Passive ROM: Left knee 6 to 80 degrees. Joint play: hypomobile. Manual muscle testing: Left knee flexion/extension: 3-/5. Palpation: Minimal warmth upon palpation, consistent with post-operative conditions. Surgical incision intact with cheri with no drainage on dressing and left open to air; ecchymosis developing medial knee with mild edema. Special tests: Negative Sylvia Sign. Functional Mobility: Bed Mobility: NT Sit to Stand: SBA Stair Negotiation: SBA Ambulation: Patient is ambulating with mild antalgic type pattern with FWW, step to gait pattern; good heel to toe gait pattern; SBA. Pt ambulated approx 60' x 2 with slow aden. Limited knee flexion during swing phase. Tinetti Gait and Balance Assessment: Sitting balance: Steady, safe = 1. Rises from chair: needs assistance= 0. Attempts to rise: needs assistance= 0. Immediate standing balance (first 5 seconds): Steady but uses walker or other support = 1. Standing balance: Steady but uses walker or other support = 1. Nudged: Staggers, grabs, catches self = 1. Eyes closed: Steady = 1. Turning 360 degrees: Discontinuous steps = 0 , Unsteady (grabs, staggers) = 0. Sitting down: Uses arms or not a smooth motion = 1. Balance Score: 6/16. Indication of gait: No hesitancy = 1. Step of length and height: Step to = 0. Foot clearance: L foot clears floor = 1 , R foot clears floor = 1. Step symmetry: Right and left step length no equal = 0. Step continuity: Stopping or discontinuity between steps = 0. Path: Mild/moderate deviation or uses w/ aid = 1. Trunk: No sway but flex knees or back or uses arms for stability = 1. Walking time: Heels apart = 0. Gait score: 10/20. Total Score = Balance + Gait 05/08. Tinetti tool score: < = 18 High. Physical Education Intervention Physical Therapy Education: Pt was educated on the importance of cyrotherapy and elevation. Reviewed proper pillow placement under LE to maintain good extension. Stressed the importance also of ambulating at at least every other hour for 2-5 minutes duration and completion of HEP 2x/day. Patient was educated with regards to signs and symptoms to monitor with respect to blood clots and infection. Therapeutic Exercise : Pt completed right LE supine exercises of glut sets, quad sets, heel slides and ankle pumps (hourly) at this time, 10x. Pt completed 10x of knee flexion with gentle flexion stretch with plastic bag. Completed standing heel raises and right marches, hip abduction and ham curls; added standing SLR. Completed standing knee flexion on step stool for gentle rocking to promote flexion. HEP upated and instructed. Gait Training: Gait training this date with FWW with instruction for step to gait pattern for right affective LE with increase cues for heel to toe pattern and knee flexion during swing. Worked on stair mobility this date; verbal cues were needed for sequencing of up with good, down with bad ; patient carryover was fair at SBA for ascend/descending 3 steps with HR and QC. Therapeutic Activity: Worked on proper sit to stand, stand to sit transfers this date from bedside with good carryover with minimal with verbal cues for proper sequencing and hand placement. Assisted with donning and filling up cryocuff. Assessment & Plan Assessment Impairments: abnormal gait, abnormal or restricted ROM, impaired balance, impaired physical strength, pain with function and weight-bearing intolerance Barriers to therapy: Increased pain, edema,bruising and knee weakness. Prognosis: good Goals Short Term Goals Goal 1 : Patient will be independent with HEP with good compliance and independence. Goal 2 : Patient will demonstrate 3-90 degrees of passive range of motion of right knee flexion. Goal 3 : Patient will ambulate >6 minutes modified independently with wheeled walker with good reciprocal gait pattern. Goal 4 : Patient will demonstrate all sit< >stand transfers and supine< >sit bed mobility, modified independent with no cues for proper sequencing. Goal 5 : Patient will ascend/descend 6-7 steps with AD with supervision, step to gait pattern. Dramatic Director Goals Goal 1 : Patient will demonstrate 0-110 degrees of active Right knee flexion in order to improve indpendence with ambulation up and down steps. Goal 2 : Patient will demonstrate 4+/5 or better right knee strength in order to safely return to activities of interest. Goal 3 : Patient will ambulate community distances on even and uneven surfaces, independently with no AD, normalized gait pattern and < 1/10 report of pain in leftt knee. Goal 4 : Pt will ascend/descend 6-7 steps with railing with reciprical gait pattern independently. Goal 5 : Patient will demonstrate good static and dynamic standing balance for >15 mintues without LOB or increase in knee pain. Goal 6 : Pt will improve Tinetti Balance test to 28/28 to indicate no fall risk. Plan Planned modality interventions: cryotherapy Planned therapy interventions: bed mobility training, dressing changes, functional ROM exercises, gait training, home exercise program, manual therapy, neuromuscular re-education, soft tissue mobilization, strengthening, stretching, therapeutic activities and transfer training Frequency: 3x/week. Duration in weeks: 6 Treatment plan discussed with: patient Plan details: Educated to continue icing and elevating. documented in this encounter [facility] 04-14-2024 Telephone encounter Note Post op pain med refill. PDMP reviewed. [facility] 04-14-2024 History of Present illness Narrative Physical Therapy Physical Therapy Daily Visit Patient Name: Stacey Morelos Today's Date: 04/14/2024 Subjective Current Problem: s/p right TKA with pain and difficulty walking. Pt is being seen today for follow up visit for s/p right TKA. Date of Surgery: 02/10/2024 with one night stay at hospital. . Current deficits: Difficulty with all mobility secondary to recent right TKA and pain. Visit Number 2. Time In: 12:00 pm; Time out: 12:40 pm Total time: 40 minutes [id number] TherEx x 30 minutes [id number] gait training x 10 minutes Precautions: WBAT Right LE; Right TKA protocol. Pain Management: The patient is complaining of pain located in the Righ knee and thigh region. Pain rating 7/10. The pain is improved by ice and medication 1 every 6 hours of Kelin and Tylenol as needed. The pain is aggravated by activity. The pain is described as aching, throbbing and stiffness. Prior level of function: Ambulation: antalgic gait pattern on Right LE. Assistive devices: FWW, cane ADL and IADL: Independent. Home Environment: Pt lives with her in a two story home with 3-4 steps to enter. Bedroom and bathroom on first floor. Objective General Visit Information: Passive ROM: Left knee 8 to 72 degrees. Joint play: hypomobile. Manual muscle testing: Left knee flexion/extension: 3-/5. Palpation: Minimal warmth upon palpation, consistent with post-operative conditions. Surgical incision intact with cheri with no drainage on dressing. New AB dressing applied along with paper tape and sepideh wrap; ecchymosis developing medial knee with mild edema. Special tests: Negative Sylvia Sign. Functional Mobility: Bed Mobility: NT Sit to Stand: SBA Stair Negotiation: SBA Ambulation: Patient is ambulating with mild antalgic type pattern with FWW, step to gait pattern; good heel to toe gait pattern; SBA. Pt ambulated approx 60' x 2 with slow aden. Limited knee flexion during swing phase. Tinetti Gait and Balance Assessment: Sitting balance: Steady, safe = 1. Rises from chair: needs assistance= 0. Attempts to rise: needs assistance= 0. Immediate standing balance (first 5 seconds): Steady but uses walker or other support = 1. Standing balance: Steady but uses walker or other support = 1. Nudged: Staggers, grabs, catches self = 1. Eyes closed: Steady = 1. Turning 360 degrees: Discontinuous steps = 0 , Unsteady (grabs, staggers) = 0. Sitting down: Uses arms or not a smooth motion = 1. Balance Score: 6/16. Indication of gait: No hesitancy = 1. Step of length and height: Step to = 0. Foot clearance: L foot clears floor = 1 , R foot clears floor = 1. Step symmetry: Right and left step length no equal = 0. Step continuity: Stopping or discontinuity between steps = 0. Path: Mild/moderate deviation or uses w/ aid = 1. Trunk: No sway but flex knees or back or uses arms for stability = 1. Walking time: Heels apart = 0. Gait score: 10/20. Total Score = Balance + Gait 05/08. Tinetti tool score: < = 18 High. Physical Education Intervention Physical Therapy Education: Pt was educated on the importance of cyrotherapy and elevation. Reviewed proper pillow placement under LE to maintain good extension. Stressed the importance also of ambulating at at least every other hour for 2-5 minutes duration and completion of HEP 2x/day. Patient was educated with regards to signs and symptoms to monitor with respect to blood clots and infection. Therapeutic Exercise : Pt completed right LE supine exercises of glut sets, quad sets, heel slides and ankle pumps (hourly) at this time, 10x. Pt completed 10x of knee flexion with gentle flexion stretch with plastic bag. Completed standing heel raises and right marches; added hip abduction and ham curls. HEP upated and instructed. Gait Training: Gait training this date with FWW with instruction for step to gait pattern for right affective LE with increase cues for heel to toe pattern and knee flexion during swing. Worked on stair mobility this date; verbal cues were needed for sequencing of up with good, down with bad ; patient carryover was fair at SBA for ascend/descending 3 steps with HR and QC. Therapeutic Activity: Worked on proper sit to stand, stand to sit transfers this date from bedside with good carryover with minimal with verbal cues for proper sequencing and hand placement. Assisted with donning and filling up cryocuff. Assessment & Plan Assessment Impairments: abnormal gait, abnormal or restricted ROM, impaired balance, impaired physical strength, pain with function and weight-bearing intolerance Barriers to therapy: Increased pain, edema,bruising and knee weakness. Prognosis: good Goals Short Term Goals Goal 1 : Patient will be independent with HEP with good compliance and independence. Goal 2 : Patient will demonstrate 3-90 degrees of passive range of motion of right knee flexion. Goal 3 : Patient will ambulate >6 minutes modified independently with wheeled walker with good reciprocal gait pattern. Goal 4 : Patient will demonstrate all sit< >stand transfers and supine< >sit bed mobility, modified independent with no cues for proper sequencing. Goal 5 : Patient will ascend/descend 6-7 steps with AD with supervision, step to gait pattern. Senior Care Goals Goal 1 : Patient will demonstrate 0-110 degrees of active Right knee flexion in order to improve indpendence with ambulation up and down steps. Goal 2 : Patient will demonstrate 4+/5 or better right knee strength in order to safely return to activities of interest. Goal 3 : Patient will ambulate community distances on even and uneven surfaces, independently with no AD, normalized gait pattern and < 1/10 report of pain in leftt knee. Goal 4 : Pt will ascend/descend 6-7 steps with railing with reciprical gait pattern independently. Goal 5 : Patient will demonstrate good static and dynamic standing balance for >15 mintues without LOB or increase in knee pain. Goal 6 : Pt will improve Tinetti Balance test to 28/28 to indicate no fall risk. Plan Planned modality interventions: cryotherapy Planned therapy interventions: bed mobility training, dressing changes, functional ROM exercises, gait training, home exercise program, manual therapy, neuromuscular re-education, soft tissue mobilization, strengthening, stretching, therapeutic activities and transfer training Frequency: 3x/week. Duration in weeks: 6 Treatment plan discussed with: patient Plan details: Educated to continue icing and elevating. documented in this encounter [facility] 04-14-2024 Miscellaneous Notes Post op pain med refill. PDMP reviewed. documented in this encounter [facility] 04-11-2024 History of Present illness Narrative Physical Therapy Physical Therapy Evaluation Patient Name: Stacey Morelos Today's Date: 04/11/2024 Subjective Current Problem: s/p right TKA with pain and difficulty walking. Pt is being seen today for initial evaluation for s/p right TKA. Date of Surgery: 02/10/2024 with one night stay at hospital. . Current deficits: Difficulty with all mobility secondary to recent right TKA and pain. Visit Number 1. Time In: 12:00 pm; Time out: 12:40 pm Total time: 40 minutes [id number] PT Eval x 20 minutes [id number] TherEx x 10 minutes [id number] gait training x 10 minutes Precautions: WBAT Right LE; Right TKA protocol. Pain Management: The patient is complaining of pain located in the Righ knee and thigh region. Pain rating 7/10. The pain is improved by ice and medication 1 every 6 hours of Kelin and Tylenol as needed. The pain is aggravated by activity. The pain is described as aching, throbbing and stiffness. Prior level of function: Ambulation: antalgic gait pattern on Right LE. Assistive devices: FWW, cane ADL and IADL: Independent. Home Environment: Pt lives with her in a two story home with 3-4 steps to enter. Bedroom and bathroom on first floor. Objective General Visit Information: Passive ROM: Left knee 10 to 70 degrees. Joint play: hypomobile. Manual muscle testing: Left knee flexion/extension: 3-/5. Palpation: Minimal warmth upon palpation, consistent with post-operative conditions. Surgical incision intact with cheri with minimal bloody drainage on dressing. New AB dressing applied along with paper tape and sepideh wrap; ecchymosis developing medial knee with mild edema. Special tests: Negative Sylvia Sign. Functional Mobility: Bed Mobility: NT Sit to Stand: CGA/min A Stair Negotiation: TBA Ambulation: Patient is ambulating with mild antalgic type pattern with FWW, step to gait pattern; good heel to toe gait pattern; SBA. Pt ambulated approx 60' x 2 with slow aden. Limited knee flexion during swing phase. Tinetti Gait and Balance Assessment: Sitting balance: Steady, safe = 1. Rises from chair: needs assistance= 0. Attempts to rise: needs assistance= 0. Immediate standing balance (first 5 seconds): Steady but uses walker or other support = 1. Standing balance: Steady but uses walker or other support = 1. Nudged: Staggers, grabs, catches self = 1. Eyes closed: Steady = 1. Turning 360 degrees: Discontinuous steps = 0 , Unsteady (grabs, staggers) = 0. Sitting down: Uses arms or not a smooth motion = 1. Balance Score: 6/16. Indication of gait: No hesitancy = 1. Step of length and height: Step to = 0. Foot clearance: L foot clears floor = 1 , R foot clears floor = 1. Step symmetry: Right and left step length no equal = 0. Step continuity: Stopping or discontinuity between steps = 0. Path: Mild/moderate deviation or uses w/ aid = 1. Trunk: No sway but flex knees or back or uses arms for stability = 1. Walking time: Heels apart = 0. Gait score: 10/20. Total Score = Balance + Gait 05/08. Tinetti tool score: < = 18 High. Physical Education Intervention Physical Therapy Education: Pt was educated on the importance of cyrotherapy and elevation. Reviewed proper pillow placement under LE to maintain good extension. Stressed the importance also of ambulating at at least every other hour for 2-5 minutes duration and completion of HEP 2x/day. Patient was educated with regards to signs and symptoms to monitor with respect to blood clots and infection. Therapeutic Exercise : Pt completed right LE supine exercises of glut sets, quad sets, heel slides and ankle pumps (hourly) at this time, 10x. Pt completed 10x of knee flexion with gentle flexion stretch with plastic bag. Completed standing heel raises and right marches. HEP issued and instructed. Gait Training: Gait training this date with FWW with instruction for step to gait pattern for right affective LE with increase cues for heel to toe pattern and knee flexion during swing. Therapeutic Activity: Worked on proper sit to stand, stand to sit transfers this date from bedside with good carryover with min A with verbal cues for proper sequencing and hand placement. Assisted with donning and filling up cryocuff. Assessment & Plan Assessment Impairments: abnormal gait, abnormal or restricted ROM, impaired balance, impaired physical strength, pain with function and weight-bearing intolerance Barriers to therapy: Increased pain, edema,bruising and knee weakness. Prognosis: good Goals Short Term Goals Goal 1 : Patient will be independent with HEP with good compliance and independence. Goal 2 : Patient will demonstrate 3-90 degrees of passive range of motion of right knee flexion. Goal 3 : Patient will ambulate >6 minutes modified independently with wheeled walker with good reciprocal gait pattern. Goal 4 : Patient will demonstrate all sit< >stand transfers and supine< >sit bed mobility, modified independent with no cues for proper sequencing. Goal 5 : Patient will ascend/descend 6-7 steps with AD with supervision, step to gait pattern. Senior Care Goals Goal 1 : Patient will demonstrate 0-110 degrees of active Right knee flexion in order to improve indpendence with ambulation up and down steps. Goal 2 : Patient will demonstrate 4+/5 or better right knee strength in order to safely return to activities of interest. Goal 3 : Patient will ambulate community distances on even and uneven surfaces, independently with no AD, normalized gait pattern and < 1/10 report of pain in leftt knee. Goal 4 : Pt will ascend/descend 6-7 steps with railing with reciprical gait pattern independently. Goal 5 : Patient will demonstrate good static and dynamic standing balance for >15 mintues without LOB or increase in knee pain. Goal 6 : Pt will improve Tinetti Balance test to 28/28 to indicate no fall risk. Plan Planned modality interventions: cryotherapy Planned therapy interventions: bed mobility training, dressing changes, functional ROM exercises, gait training, home exercise program, manual therapy, neuromuscular re-education, soft tissue mobilization, strengthening, stretching, therapeutic activities and transfer training Frequency: 3x/week. Duration in weeks: 6 Treatment plan discussed with: patient Plan details: Educated to continue icing and elevating. Pt will continues to benefit from PT interventions to improve overall strength, ROM and functional mobility to achieve PLOF. documented in this encounter [facility] 04-09-2024 Note XR KNEE RT 1 OR 2 VW S XR KNEE RT 1 OR 2 VWS HISTORY: Post-operative evaluation. COMPARISON: none IMPRESSION: Total knee arthroplasty, no hardware complication. Expected soft tissue emphysema. Prepatellar cutaneous cheri. Finalized by Oliver Storm MD on 04/09/2024 1:30 PM [facility] [place] 04-08-2024 Telephone encounter Note Post op pain rx. PDMP reviewed [facility] 04-08-2024 Miscellaneous Notes Post op pain rx. PDMP reviewed documented in this encounter [facility] 03-31-2024 History of Present illness Narrative Associated Order(s): Trigger Point Injection ([place] 52224 [place] 23859) Post-Procedure Diagnose(s): Medial epicondylitis of left elbow Images from the original note were not included. Subjective Patient ID: Stacey Morelos is a 58 y.o. female. LT Elbow Pt is RT handed. Pt went to Urgent care [facility] due to 20 elbow pain. States 6 days ago her elbow gave out on her when getting into bed (DOI 03/25/24). She is not able to take nsaids since she will be having her knee replaced 04/09/24. She has been using ice, lidocaine patches and biofreeze. Given 12 tablets of tramadol. Has not injured this elbow in the past. States the UC did not take xrays because she has good ROM, and they believe it is just tendinitis. Pain posterior elbow, pain is constant. Pain occas radiates distally into ulnar aspect of forearm, and proximally into lateral humerus. States initially she had shoulder pain, this has resolved. States she only gets relief with arm elevated on a pillow. Taking tramadol and tyl prn, with little relief. States the tramadol lasts for about 4 hours, she took one at 7am today. She has been using ice, lidocaine patches, CBD cream and biofreeze w/o relief. Pain at rest 8/10. Pain at worst 10+/10 with certain movements and at night. Admits waking at night. Admits tingling which comes and goes, in LF and RF. States her thinks it looks swollen. Notes she used an sepideh wrap to keep her lidocaine patch on, no relief. TX: [facility] 03/29/24, lidocaine patches, biofreeze, ice, tramadol, tyl, XR [facility] 03/31/24 Objective Elbow Musculoskeletal Exam Palpation Left Tenderness: present Medial/flexor origin: moderate Range of Motion Range of motion additional comments: Pain with resisted extension and flexion, no pain with pronation/supination Strength Left Extension: 4-/5. Extension is affected by pain. Flexion: 4-/5. Flexion is affected by pain. I reviewed the [facility] urgent care note from 03/29/24, given tramadol and did xrays of the elbow, unable to take nsaids due to upcoming knee replacement Trigger Point Injection ([place] 28476 [place] 34413) on 03/31/2024 12:47 PM Indications: pain Details: 25 G needle Medications: 20 mg methylPREDNISolone Acetate 20 MG/ML Consent was given by the patient. Patient was prepped and draped in the usual sterile fashion. XR elbow 1 or 2 views left Imaging Result: Xrays AP and LAT of the left elbow performed on March 31, 2024 demonstrates an avulsion fracture of the medial epicondyle. Impression Avulsion fracture of medial epicondyle Andressa Alanis COLLECTIONS CLERK Assessment/Plan Encounter Diagnoses: ICD-10-CM 1. Left elbow pain M25.522 XR elbow 1 or 2 views left 2. Medial epicondylitis of left elbow M77.02 F/U in 1 week s/p injection Discussion of options, pt notes she would like an injection, side effects of bleeding and infection discussed, would like to proceed with the injection, using aspectic technique 40 mg of depo medrol was injected into the left medial epicondyle, pt tolerated well, bandaid applied, may do activities as tolerated, f/u in 1-2 weeks. documented in this encounter [facility] 03-13-2024 Note XR CHEST 2 VWS Clinical history: Preoperative evaluation the surgery. History of asthma. Hypertension. Comparisons: None Findings: 2 views of the chest obtained. Heart size and pulmonary vasculature appear within normal limits. Lungs appear clear. There is no pleural effusion nor pneumothorax. IMPRESSION: No evidence for acute cardiopulmonary disease. Finalized by Geovani Dickens MD on 03/13/2024 3:10 PM [facility] [place] 03-13-2024 History of Present illness Narrative Images from the original note were not included. HISTORY OF PRESENT ILLNESS: Stacey Morelos is an 58 y.o. @ female. Chief complaint RT knee pain RT Knee: here to discuss options. PREHAB completed 02/18, continues HEP RT knee pain ongoing since 2015. Pain has been progressively getting worse and she has been putting it off. No injury. She notes she is having increasing issues doing activities of daily living. States knee feels better in the AM, continues getting worse throughout the day. Pain diffuse in knee. Occas radiates up and down leg. Taking IBU, aleve or advil. Using voltaren and CBD ointment. Denies N/T. Intermittent swelling, with prolonged WB. Admits popping. Denies giving out. Pain with walking and standing. Does not wake at HS. Pain at worst 10/10 at the end of day. TX: euflexxa injections 06/22/21, 06/29/21, 07/06/21, Depo Medrol injection 07/31/2019, 08/02/20, 04/20/21, previous MRI 2015, meloxicam in the past, xrays rt knee 08/02/2020, Voltaren Gel, XR [facility] 02/06/24, MDP 02/06/24, PREHAB 02/18 with HEP, taking nabumetone States she does get sick coming out of anesthesia. MEDICATION: Current Outpatient Medications on File Prior to Visit Medication Sig Dispense Refill albuterol HFA 90 mcg/act inhaler every 4 (four) hours atorvastatin (Lipitor) 10 MG tablet Take 10 mg by mouth in the morning. B Complex-Folic Acid (SUPER B COMPLEX MAXI PO) Super B Complex buPROPion XL (Wellbutrin XL) 300 MG 24 hr tablet Take 1 tablet by mouth in the morning. rappiqxdxl-[id number]-[id number] 50-325-40 MG tablet take 1 TO 2 tablets by mouth every 6 hours if needed for headache calcium carbonate (Tums) 500 MG chewable tablet Chew 500 mg Daily ferrous sulfate ER 142 mg ER tablet Take by mouth Daily. montelukast (Singulair) 10 MG tablet Take 1 tablet by mouth at bedtime Multiple Vitamin (multivitamin) capsule Take 1 capsule by mouth Daily sertraline (Zoloft) 50 MG tablet Synthroid 50 MCG tablet Take 1 tablet by mouth in the morning. [DISCONTINUED] Cranberry 50 MG chewable tablet Cranberry No current facility-administered medications on file prior to visit. MEDICAL HISTORY: Past Medical History: Diagnosis Date Acute asthma (CMS/HCC) Allergies Anemia Arthritis Asthma (CMS/HCC) Breast cancer screening by mammogram Depression (CMS/HCC) Elevated blood sugar raised blood sugar History of migraine headaches Hypertension (CMS/HCC) Hypothyroidism (CMS/HCC) Obesity (BMI 30-39.9) Screening for osteoporosis ALLERGIES: No Known Allergies VITALS: Visit Vitals Ht 5' 2 Wt 214 lb 12.8 oz BMI 39.29 kg/m OB Status Having periods Smoking Status Never BSA 2.06 m Review of Systems General: Fatigue denies. Fever denies. Night sweats denies. ENT: Decreased hearing denies. Respiratory: Cough denies. Shortness of breath denies. Cardiovascular: Chest pain denies. Cyanosis denies. Irregular heartbeat denies. Gastrointestinal: Comments denies incontinence of stool . Nausea denies. Hematology: Bleeding problems denies. Genitourinary: Comments denies dribbling. Incontinence denies. Musculoskeletal: CommentsSee [facility] for details. Skin: Rash denies. Neurologic: Dizziness denies. Headache denies. Examination General Examination: GENERAL EXAMINATION in no acute distress, well developed, well nourished . HEART: no jugular venous distention . LUNGS: regular unlabored, normal effort . NEUROLOGIC: alert and oriented . PSYCH: oriented to person, place, time and situation . PHYSICAL EXAM: Ortho Exam RT KNEE ROM 10-110 Crepitus Medial joint line tenderness, global tenderness Leg Length RT leg longer Strength 5/5 Skin normal Limping IMAGING: February 06, 2024 x-rays from the [place] office AP weight-bearing bilateral knees and lateral of the right knee demonstrate medial compartment collapse with [id number] bilateral knees and varus alignment with subchondral sclerosis marginal osteophytes. No fractures noted. Impression: Advanced arthritis bilateral knees Davon Desouza D.O. ASSESSMENT: ICD-10-CM 1. Right knee pain, unspecified chronicity M25.561 2. Arthritis of right knee M17.11 PLAN: I reviewed options with the patient surgical and nonsurgical including joint replacement surgery and the risks and benefits of this in the chances for success as failure. Including conservative treatment, use of non-steriodal anti inflammatories and the risk associated with this, Physical therapy, home exercise, weight control and injections. I also discussed with the patient operative options and the risks/benefits of each and chances for success/ failure. Discussion included but was not limited to the risk of infection, blood clot,nerve injury, leg length discrepancy, instability, blood clot, failure to improve and need for additional surgery and . I answered all of the patients questions. I recommend a RT Total knee replacement. The patient was instructed to marissa the operative site with the word Yes prior to arriving at the hospital and the patient verbalized an understanding. The patient wants to proceed and informed consent is obtained. I explained to the patient that I and relocating to another practice out of state and if she chooses to proceed with knee replacement I would be available for her immediate postop follow up but not for her custodial follow up that she would need to follow up with my associates. I also gave her the option to be referred to another orthopedic surgeon by my office or surgeon of her choosing. She indicated she wanted to proceed with surgery with me. Dr. Desouza obtained history and examined the patient, I am acting as scribe for Dr. Desouza/patel Desouza D.O. documented in this encounter [facility] 02-19-2024 History of Present illness Narrative Physical Therapy Physical Therapy Evaluation Visit Patient Name: Stacey Morelos Today's Date: 02/19/2024 Reason: Prehab prior to right Total Knee Arthroplasty on 02/19/24 Visit number: 1 Subjective Interim History: Stacey Morelos is a 58 y.o. female that presents today for prehab prior to right Total Knee Arthroplasty scheduled for March. she has had ongoing pain and has elected to proceed with TKA. Works: preschool. Imaging: Radiograph indicates severe OA of right knee. Prior Level of Function: Lives in a 2 home with but bedroom on 1st floor. Currently has straight cane and walker at home. 3 steps to enter home. Precautions: [place] Objective: Right Knee ROM: 0-115 degrees Gait: antalgic gait Treatment: Therapeutic Exercise: x 10 minutes review of pre- and post-op therapeutic exercise and their purpose including improved blood flow, muscle activation, ROM, and strength. Education: Educated pt on TKA precautions, proper leg elevation technique, to avoid pillow under directly under knee to promote knee extension. Educated on s/s of blood clots, DVT. Educated on the importance of rest/ice in the immediate post op stage to promote tissue healing. Educated on potential buckling of knee post op and to be cautious with each step and use FWW as prescribed. Gait Training: x10 minutes of gait training including education and practice using a FWW and SPC on flat ground, and stairs as appropriate to prepare for home navigation post op. Eductaed pt how to fit walker to proper height. Assessment: Goal 1: Patient will demo proper gait with proper assistive device for post op mobility. - MET Goal 2: Patient will report no further questions regarding post op mobility, safe home negotiation, or PT plan. -MET Pt will be discharged following today's 1x visit. Met goals. does not need a FWW for post op gait, mobility. I hereby deem this POC medically necessary. Please sign below. Date: documented in this encounter [facility] 02-19-2024 History of Present illness Narrative Images from the original note were not included. HISTORY OF PRESENT ILLNESS: Stacey Morelos is an 58 y.o. @ female. Chief complaint RT knee pain RT Knee: here to discuss options. S/P MDP 02/05 (per Kathy) PREHAB today RT knee pain ongoing since 2016. Pain has been progressively getting worse and she has been putting it off. No injury. She notes she is having increasing issues doing activities of daily living. Pain when she is WB, diffuse in knee. Pain is better in the morning and gets worse as she is on it more. Pain occas radiates proximally into her lateral hip, and occas into her lateral lower leg. Pain at worst 10/10 at the end of day. Denies locking/catching. Admits cracking and popping. Denies giving out sensation. Does not wear a brace. She has tried aleve, advil, ice, heat voltaren, and CDB roll on all with little relief. Intermittent swelling. Denies N/T. Denies waking at night. Admits limping. Taking nabumetone TX: euflexxa injections 06/22/21, 06/29/21, 07/06/21, Depo Medrol injection 07/31/2019, 08/02/20, 04/20/21, previous MRI 2015, meloxicam in the past, xrays rt knee 08/02/2020, Voltaren Gel, XR [facility] 02/06/24, MDP 02/06/24, PREHAB 02/18 with HEP, taking nabumetone MEDICATION: Current Outpatient Medications on File Prior to Visit Medication Sig Dispense Refill albuterol HFA 90 mcg/act inhaler every 4 (four) hours atorvastatin (Lipitor) 10 MG tablet Take 10 mg by mouth in the morning. B Complex-Folic Acid (SUPER B COMPLEX MAXI PO) Super B Complex buPROPion XL (Wellbutrin XL) 300 MG 24 hr tablet Take 1 tablet by mouth in the morning. szdwuohqml-cwgjbyqfrffxc-klwiutea 50-325-40 MG tablet take 1 TO 2 tablets by mouth every 6 hours if needed for headache Cranberry 50 MG chewable tablet Cranberry ferrous sulfate ER 142 mg ER tablet Take by mouth Daily. montelukast (Singulair) 10 MG tablet Take 1 tablet by mouth at bedtime nabumetone (Relafen) 500 MG tablet Take 1 tablet (500 mg) by mouth in the morning and 1 tablet (500 mg) before bedtime. Do all this for 14 days. 28 tablet 0 sertraline (Zoloft) 50 MG tablet Synthroid 50 MCG tablet Take 1 tablet by mouth in the morning. [DISCONTINUED] albuterol HFA 90 mcg/act inhaler Inhale 2 puffs 4 (four) times a day as needed. [DISCONTINUED] methylPREDNISolone (Medrol Dospak) 4 MG tablets Follow schedule on package instructions 21 tablet 0 [DISCONTINUED] sertraline (Zoloft) 25 MG tablet Take 25 mg by mouth in the morning. No current facility-administered medications on file prior to visit. MEDICAL HISTORY: Past Medical History: Diagnosis Date Acute asthma (CMS/HCC) Allergies Anemia Arthritis Asthma (CMS/HCC) Breast cancer screening by mammogram Depression (CMS/HCC) Elevated blood sugar raised blood sugar History of migraine headaches Hypertension (CMS/HCC) Hypothyroidism (CMS/HCC) Obesity (BMI 30-39.9) Screening for osteoporosis ALLERGIES: No Known Allergies VITALS: Visit Vitals Ht 5' 2 Wt 212 lb BMI 38.78 kg/m OB Status Having periods Smoking Status Never BSA 2.05 m PHYSICAL EXAM: Ortho Exam RIGHT KNEE ROM 10-115 Crepitus Medial joint line tenderness IMAGING: February 06, 2024 x-rays from the [place] office AP weight-bearing bilateral knees and lateral of the right knee demonstrate medial compartment collapse with ctjk-tq-qdnc bilateral knees and varus alignment with subchondral sclerosis marginal osteophytes. No fractures noted. Impression: Advanced arthritis bilateral knees Davon Desouza D.O. ASSESSMENT: ICD-10-CM 1. Right knee pain, unspecified chronicity M25.561 2. Arthritis of right knee M17.11 PLAN: I explained the diagnosis and reviewed treatment options including injections vs total knee replacement. I discussed risks/benefits of each and chances for success/ failure. Discussion included but was not limited to the risk of infection, blood clot, failure to improve and need for additional surgery. The patient was advised that surgery is not likely to make them pain free. I answered all of the patients questions. She will consider her options. Follow up in one month. Dr. Desouza obtained history and examined the patient, I am acting as scribe for Dr. Desouza/patel Desouza D.O. documented in this encounter [facility] 02-06-2024 History of Present illness Narrative Images from the original note were not included. Subjective Patient ID: Stacey Morelos is a 58 y.o. female. RT Knee Last saw Kathy 08/17/21 for RT knee pain and discussed a replacement, but she never had it done. Pain has been progressively getting worse and she has been putting it off. No injury. She notes she is having increasing issues doing activities of daily living. Right knee pain ongoing since 2016. Denies injury. Constant pain when she is WB, diffuse in knee. Pain is better in the morning and gets worse as she is on it more. Pain occas radiates proximally into her lateral hip, and occas into her lateral lower leg. Denies pain at rest. Pain at worst 10/10 at the end of day. She has tried aleve, advil, ice, heat voltaren, and CDB roll on all with little relief. On and off swelling. Denies N/T. Denies waking at night. Denies locking/catching. Admits cracking and popping. Denies giving out sensation. Does not wear a brace. TX: euflexxa injections 06/22/21, 06/29/21, 07/06/21, Depo Medrol injection 07/31/2019, 08/02/20, 04/20/21, previous MRI 2015, meloxicam in the past, xrays rt knee 08/02/2020, Voltaren Gel. Objective Right Knee Exam Tests Ree: Medial - negative Lateral - negative Knee Musculoskeletal Exam Gait Limp: right Inspection Right Erythema: none Effusion: none Edema: none Ecchymosis: none Palpation Right Tenderness: present Medial joint line: moderate Range of Motion Right Active extension: 0 Active flexion: 115 Strength Right Extension: 4-/5. Extension is affected by pain. Flexion: 4-/5. Flexion is affected by pain. Instability Right Medial Ree test: negative Lateral Ree test: negative XR knee 1 or 2 views right Imaging Result: February 06, 2024 x-rays AP weight-bearing bilateral knees and lateral of the right knee demonstrate medial compartment collapse with txuv-vq-pspj bilateral knees and varus alignment with subchondral sclerosis marginal osteophytes. No fractures noted. Impression: Advanced arthritis bilateral knees Davon Desouza D.O. Assessment/Plan Encounter Diagnoses: ICD-10-CM 1. Right knee pain, unspecified chronicity M25.561 XR knee 1 or 2 views right 2. Arthritis of right knee M17.11 Ambulatory referral to Physical Therapy methylPREDNISolone (Medrol Dospak) 4 MG tablets nabumetone (Relafen) 500 MG tablet will try MDP, take as directed, no nsaids while taking MDP until 24 hrs after the last dose of MDP, may increase BP/HR take nsaids as directed may increase risk of gi bleeding and renal dysfunction, stop other nsaids while taking the may still take TYL , she notes she is leaning towards surgical intervention, will have her F/U with dr. Desouza and will send her to prehab. documented in this encounter [facility] 05-08-2021 Evaluation note Encounter Date Diagnosis Assessment Notes Apr, Impetigo (ICD-10 - L01.00) [employer] Other Evaluation note* Diagnosis Right knee pain, unspecified chronicity Arthritis of right knee [facility] noteNo assessment information availableFirGenesis [facility] Work Phone: Evaluation note* Diagnosis Left elbow pain- Primary Pain in joint, upper arm Medial epicondylitis of left elbow [facility]* Diagnosis Post-op pain- Primary Other acute postoperative pain Arthritis of right knee [facility]* Diagnosis Primary osteoarthritis of right knee- Primary Acute postoperative pain of right knee Difficulty walking Difficulty in walking [facility]* Diagnosis Post-op pain Other acute postoperative pain [facility]* Diagnosis S/P total knee arthroplasty, right [facility]* Diagnosis Primary osteoarthritis of right knee- Primary Acute postoperative pain of right knee Difficulty walking Difficulty in walking Arthritis of right knee [facility]* Diagnosis S/P total knee arthroplasty, right- Primary [facility]* Diagnosis Primary osteoarthritis of right knee- Primary Acute postoperative pain of right knee Difficulty walking Difficulty in walking [facility]* Diagnosis Primary osteoarthritis of right knee- Primary Acute postoperative pain of right knee Difficulty walking Difficulty in walking [facility]* Diagnosis Primary osteoarthritis of right knee- Primary Acute postoperative pain of right knee Difficulty walking Difficulty in walking Arthritis of right knee [facility]* Diagnosis S/P total knee arthroplasty, right- Primary [facility]* Diagnosis Primary osteoarthritis of right knee- Primary Acute postoperative pain of right knee Difficulty walking Difficulty in walking Arthritis of right knee [facility]* Diagnosis S/P total knee arthroplasty, right [facility]* Diagnosis S/P total knee arthroplasty, right [facility]* Diagnosis Primary osteoarthritis of right knee- Primary Acute postoperative pain of right knee Difficulty walking Difficulty in walking documented [facility]* Diagnosis Primary osteoarthritis of right knee- Primary Acute postoperative pain of right knee Difficulty walking Difficulty in walking documented [facility]* Diagnosis Primary osteoarthritis of right knee- Primary Acute postoperative pain of right knee Difficulty walking Difficulty in walking Arthritis of right knee [facility]* Diagnosis S/P total knee arthroplasty, right Primary osteoarthritis of right knee [facility]* Diagnosis Acute postoperative pain of right knee- Primary Primary osteoarthritis of right knee Difficulty walking Difficulty in walking documented [facility]* Diagnosis Acute postoperative pain of right knee- Primary Primary osteoarthritis of right knee Difficulty walking Difficulty in walking documented [facility]* Diagnosis Acute postoperative pain of right knee- Primary Primary osteoarthritis of right knee Difficulty walking Difficulty in walking documented [facility]* Diagnosis Acute postoperative pain of right knee- Primary Primary osteoarthritis of right knee Difficulty walking Difficulty in walking Arthritis of right knee [facility]* Diagnosis Right knee pain, unspecified chronicity- Primary Arthritis of right knee [facility]* Diagnosis Right knee pain, unspecified chronicity- Primary Arthritis of right knee [facility]* Diagnosis Arthritis of right knee- Primary [facility]* Diagnosis Acute postoperative pain of right knee- Primary Primary osteoarthritis of right knee Difficulty walking Difficulty in walking documented [facility]* Diagnosis Acute postoperative pain of right knee- Primary Primary osteoarthritis of right knee Difficulty walking Difficulty in walking documented [facility]* Diagnosis Acute postoperative pain of right knee- Primary Primary osteoarthritis of right knee Difficulty walking Difficulty in walking S/P total knee arthroplasty, right- Primary [facility]* Diagnosis Acute postoperative pain of right knee- Primary Primary osteoarthritis of right knee Difficulty walking Difficulty in walking Arthritis of right knee S/P total knee arthroplasty, right- Primary [facility]* Diagnosis S/P total knee arthroplasty, right- Primary Right knee pain, unspecified chronicity [facility]* Diagnosis Acute postoperative pain of right knee- Primary Primary osteoarthritis of right knee Difficulty walking Difficulty in walking documented [facility]* Diagnosis Acute postoperative pain of right knee- Primary Primary osteoarthritis of right knee Difficulty walking Difficulty in walking documented in this encounter [facility]* Diagnosis S/P total knee arthroplasty, right Primary osteoarthritis of right knee documented in this encounter [facility] HealthcareEvaluation note* Diagnosis Routine general medical examination at a health care facility [facility] Diagnosis Trigger thumb of left hand- Primary documented in this [facility] Narrative - Reported* Type Description Date Medical History asthma Surgical History [place] Other InstructionsNot on filedocumented in this encounter [facility] [employer] SystemInstructionsNot on filedocumented in this encounter [facility] (n[facility] Consultation (Routine) - Authorized Specialty Diagnoses / Procedures Referred By Mary carson Referred To Contact Physical Therapy Diagnoses Arthritis of right knee Procedures PA OFFICE/OUTPATIENT NEW HIGH MDM 60 MINUTES Andressa Alanis NP [address] [place] [address] Yvette Richardson, PT [address] [place] [address] Referral ID Status Reason Start Date Expiration Date Visits Requested Visits Authorized [id number] Authorized Consult and Treat 02/06/2024 08/04/2024 99 99 [facility] for visit Narrative* Rehabilitation - Outpatient (Routine) - Authorized Specialty Diagnoses / Procedures Referred By Mary t Referred To Contact Physical Therapy Diagnoses Arthritis of right knee Procedures PA OFFICE/OUTPATIENT NEW HIGH MDM 60 MINUTES Maricarmen Mendoza, SOFTWARE TOOLS ENGINEER [address] [place] [address] Phone: tel: fax: Elsy Perez, PT [address] [place] [address] Phone: tel: fax: Referral ID Status Reason Start Date Expiration Date Visits Requested Visits Authorized [id number] Authorized Specialty Services Required 4 10/05/2024 99 99 [facility] N[facility]ative* Rehabilitation - Outpatient (Routine) - Authorized Specialty Diagnoses / Procedures Referred By Contac t Referred To Contact Physical Therapy Diagnoses Arthritis of right knee Procedures PA OFFICE/OUTPATIENT NEW HIGH MDM 60 MINUTES Maricarmen Mendoza, SOFTWARE TOOLS ENGINEER [address] [place] [address] Phone: tel: fax: Yvette Richardson, PT [address] [facility] [address] [place] [address] Phone: tel: fax: Referral ID Status Reason Start Date Expiration Date Visits Requested Visits Authorized [id number] Authorized Specialty Services Required 4 10/05/2024 99 99 [facility] Narrative* Rehabilitation - Outpatient (Routine) - Authorized Specialty Diagnoses / Procedures Referred By Contac t Referred To Contact Physical Therapy Diagnoses Arthritis of right knee Procedures PA OFFICE/OUTPATIENT NEW HIGH MDM 60 MINUTES Maricarmen Mendoza, ALLI [address] [place] [address] Phone: tel: fax: Yvette Richardson, PT [address] [facility] [address] [place] [address] Phone: tel: fax: Referral ID Status Reason Start Date Expiration Date Visits Requested Visits Authorized [id number] Authorized Specialty Services Required 4 06/10/2024 99 99 [facility] Narrative* Consultation (Routine) - Authorized Specialty Diagnoses / Procedures Referred By Contac t Referred To Contact Physical Therapy Diagnoses Arthritis of right knee Procedures PA OFFICE/OUTPATIENT NEW HIGH MDM 60 MINUTES Andressa Alanis, SOFTWARE TOOLS ENGINEER [address] [facility] [address] [place] [address] Yvette Richardson, PT [address] [facility] [address] [place] [address] Referral ID Status Reason Start Date Expiration Date Visits Requested Visits Authorized [id number] Authorized Consult and Treat 02/06/2024 08/04/2024 99 99 [facility] N[facility]ative* Rehabilitation - Outpatient (Routine) - Authorized Specialty Diagnoses / Procedures Referred By Mary carson Referred To Contact Physical Therapy Diagnoses Arthritis of right knee Procedures PHYS/OCC THERAPY SS PA MANUAL THERAPY TQS 1/> REGIONS EACH 15 MINUTES PA THERAPEUTIC PX 1/> AREAS EACH 15 MIN EXERCISES PA THER PX 1/> AREAS EACH 15 MIN NEUROMUSC REEDUCA Maricarmen Mendoza, ALLI [address] [place] [address] Phone: tel: fax: Yvette Richardson, PT [address] [place] [address] Phone: tel: fax: Referral ID Status Reason Start Date Expiration Date V isits Requested Visits Authorized [id number] Authorized 06/13/2024 08/15/2024 99 99 [facility] Narrative* Rehabilitation - Outpatient (Routine) - Authorized Specialty Diagnoses / Procedures Referred By Mary carson Referred To Contact Physical Therapy Diagnoses Arthritis of right knee Procedures PHYS/OCC THERAPY SS PA MANUAL THERAPY TQS 1/> REGIONS EACH 15 MINUTES PA THERAPEUTIC PX 1/> AREAS EACH 15 MIN EXERCISES PA THER PX 1/> AREAS EACH 15 MIN NEUROMUSC REEDUCA Maricarmen Mendoza, ALLI [address] [place] [address] Phone: tel: fax: Yvette Richardson, PT [address] [address] Phone: tel: fax: Referral ID Status Reason Start Date Expiration Date V isits Requested Visits Authorized [id number] Authorized 06/13/2024 06/10/2025 99 99 [facility] Summary Purpose Family History No Family History Records Found Relationship Condition Age at Onset Recorded Date/T brian father Unknown Advance Directives No Advanced Directives Records Found Advance Directive Response Recorded Date/ Time Advance Directives No March 29, 2024 12:54pm Date Activated Date Inactivated Comments 04/09/2024 1:02 PM 04/10/2024 4:57 PM Chief Complaint and Reason for Visit Chief Complaint L shoulder to elbow pain w/o known injury Additional Source Comments REASON FOR VISIT (unrecogniz ed section and content) Reason Comments Pain Reason Comments Pain Reason Comments Follow-up Reason Onset Date Comments refill 04/30/2024 Reason Onset Date Comments refill 05/06/2024 Reason Onset Date Comments RT Knee 05/23/2024 Reason Onset Date Comments Work note 08/12/2024 Reason Comments Med Refill Reason Comments Trigger Finger INFORMATION SOURCE (unrecogn ized section and content) DATE CREATED AUTHOR 07/16/2022 [facility] DATE CREATED AUTHOR AUTHOR'S ORGANIZ ATION 04/10/2024 [facility] DATE CREATED AUTHOR AUTHOR'S ORGANIZ ATION 09/25/2024 [facility] DATE CREATED AUTHOR AUTHOR'S ORGANIZ ATION 10/19/2024 [facility] EPIC Care Teams (unrecognized sec tion and content) Orthopedics Teacher Relationship Specialty Start Date End Date Andressa Alanis NP [address] [facility] [address] [place] [address] PCP - [place] [employer] 06/11/22 Olya Rod MD [address] [place] [address] PCP - General Family Medicine 12/26/22 Orthopedics Teacher Relationship Specialty Start Date End Date Andressa Alanis NP [address] [facility] [address] [place] [address] PCP - [place] [employer] 06/11/22 Olya Rod MD [address] [place] [address] PCP - General Family Medicine 12/26/22 Team Status: Active Member Role Status Dates Olya Rod MD Primary Care Provider Active Team Status: Inactive Member Role Status Dates Olya Rod MD Primary Care Provider Active Start: March 29, 2024 End: March 29, 2024 Ernestina Garcia APRN Attending Provider Active Start: March 29, 2024 End: March 29, 2024 Orthopedics Teacher Relationship Specialty Start Date End Date Olya Rod MD [address] [place] [address] PCP - General Family Medicine 12/26/22 Orthopedics Teacher Relationship Specialty Start Date End Date Olya Rod MD [address] [place] [address] PCP - General [facility] Medicine 12/26/22 Orthopedics Teacher Relationship Specialty Start Date End Date Olya Rod MD [address] [place] [address] PCP - General [facility] Medicine 12/26/22 Orthopedics Teacher Relationship Specialty Start Date End Date Olya Rod MD [address] [place] [address] PCP - General [facility] Medicine 12/26/22 Orthopedics Teacher Relationship Specialty Start Date End Date Olya Rod MD [address] [place] [address] PCP - General [facility] Medicine 12/26/22 Orthopedics Teacher Relationship Specialty Start Date End Date Andressa Alanis NP [address] [place] [address] PCP - [facility] 06/11/22 Olya Rod MD [address] [place] [address] PCP - General Family Medicine 12/26/22 Orthopedics Teacher Relationship Specialty Start Date End Date Andressa Alanis NP [address] [place] [address] PCP - [place] [employer] 06/11/22 Olya Rod MD [address] [place] [address] PCP - General Family Medicine 12/26/22 Orthopedics Teacher Relationship Specialty Start Date End Date Andressa Alanis NP [address] [place] [address] PCP - [place] [employer] 06/11/22 Olya Rod MD [address] [place] [address] PCP - General Family Medicine 12/26/22 Orthopedics Teacher Relationship Specialty Start Date End Date Andressa Alanis NP [address] [place] [address] PCP - [place] [employer] 06/11/22 Olya Rod MD [address] [place] [address] PCP - General Family Medicine 12/26/22 Orthopedics Teacher Relationship Specialty Start Date End Date Andressa Alanis NP [address] [place] [address] PCP - [place] [employer] 06/11/22 Olya Rod MD [address] [place] [address] PCP - General Family Medicine 12/26/22 Orthopedics Teacher Relationship Specialty Start Date End Date Andressa Alanis NP [address] [place] [address] PCP - [place] [employer] 06/11/22 Olya Rod MD [address] [place] [address] PCP - General Family Medicine 12/26/22 Orthopedics Teacher Relationship Specialty Start Date End Date Andressa Alanis SOFTWARE TOOLS ENGINEER [address] [place] [address] PCP - [place] [employer] 06/11/22 Olya Rod MD [address] [place] [address] PCP - General Family Medicine 12/26/22 Orthopedics Teacher Relationship Specialty Start Date End Date Andressa Alanis SOFTWARE TOOLS ENGINEER [address] [place] [address] PCP - [place] [employer] 06/11/22 Olya Rod MD [address] [place] [address] PCP - General Family Medicine 12/26/22 Orthopedics Teacher Relationship Specialty Start Date End Date Andressa Alanis SOFTWARE TOOLS ENGINEER [address] [place] [address] PCP - [place] [employer] 06/11/22 Olya Rod MD [address] [place] [address] PCP - General Family Medicine 12/26/22 Orthopedics Teacher Relationship Specialty Start Date End Date Andressa Alanis NP [address] [place] [address] PCP - [place] [employer] 06/11/22 Olya Rod MD [address] [place] [address] PCP - General Family Medicine 12/26/22 Orthopedics Teacher Relationship Specialty Start Date End Date Andressa Alanis NP [address] [address] [place] [address] PCP - [place] [facility] 06/11/22 Olya Rod MD [address] [place] [address] PCP - General [facility] 12/26/22 Orthopedics Teacher Relationship Specialty Start Date End Date Andressa Alanis NP [address] [place] [address] PCP - [place] [employer] 06/11/22 Olya Rod MD [address] [place] [address] PCP - General Family [facility] 12/26/22 Orthopedics Teacher Relationship Specialty Start Date End Date Andressa Alanis NP [address] [place] [address] PCP - [place] [employer] 06/11/22 Olya Rod MD [address] [place] [address] PCP - [facility] 12/26/22 Orthopedics Teacher Relationship Specialty Start Date End Date Andressa Alanis NP [address] [place] [address] PCP - [place] [employer] 06/11/22 Olya Rod MD [address] [place] [address] PCP - General Family Medicine 12/26/22 Orthopedics Teacher Relationship Specialty Start Date End Date Andressa Alanis NP [address] [place] [address] PCP - [place] [employer] 06/11/22 Olya Rod MD [address] [place] [address] PCP - General Family Medicine 12/26/22 Orthopedics Teacher Relationship Specialty Start Date End Date Andressa Alanis NP [address] [place] [address] PCP - [place] [employer] 06/11/22 Olya Rod MD [address] [place] [address] PCP - General Family Medicine 12/26/22 Orthopedics Teacher Relationship Specialty Start Date End Date Andressa Alanis NP [address] [place] [address] PCP - [place] [employer] 06/11/22 Olya Rod MD [address] [place] [address] PCP - General Family [facility] 12/26/22 Orthopedics Teacher Relationship Specialty Start Date End Date Andressa Alanis NP [address] [place] [address] PCP - [place] [employer] 06/11/22 Olya Rod MD [address] [place] [address] PCP - General Family Medicine 12/26/22 Orthopedics Teacher Relationship Specialty Start Date End Date Andressa Alanis NP [address] [place] [address] PCP - [place] [employer] 06/11/22 Olya Rod MD [address] [place] [address] PCP - General Family Medicine 12/26/22 Orthopedics Teacher Relationship Specialty Start Date End Date Andressa Alanis NP [address] [place] [address] PCP - [place] [employer] 06/11/22 Olya Rdo MD [address] [place] [address] PCP - General Family Medicine 12/26/22 Orthopedics Teacher Relationship Specialty Start Date End Date Andressa Alanis NP [address] [place] [address] PCP - [place] [facility] 06/11/22 Olya Rod MD [address] [place] [address] PCP - General Family [facility] 12/26/22 Orthopedics Teacher Relationship Specialty Start Date End Date Andressa Alanis NP [address] [place] [address] PCP - [place] [employer] 06/11/22 Olya Rod MD [address] [place] [address] PCP - General Family Medicine 12/26/22 Orthopedics Teacher Relationship Specialty Start Date End Date Andressa Alanis NP [address] [place] [address] PCP - [place] [facility] 06/11/22 Olya Rod MD [address] [place] [address] PCP - General Family Medicine 12/26/22 Orthopedics Teacher Relationship Specialty Start Date End Date Andressa Alanis NP [address] [place] [address] PCP - [place] [employer] 06/11/22 Olya Rod MD [address] [place] [address] PCP - General Family Medicine 12/26/22 Orthopedics Teacher Relationship Specialty Start Date End Date Olya Rod MD [address] [place] [address] PCP - General Family Medicine 03/04/17 Orthopedics Teacher Relationship Specialty Start Date End Date Andressa Alanis NP [address] [place] [address] PCP - [place] [employer] 06/11/22 Olya Rod MD [address] [place] [address] PCP - General Family Medicine 12/26/22 Orthopedics Teacher Relationship Specialty Start Date End Date Andressa Alanis SOFTWARE TOOLS ENGINEER [address] [facility] [address] [place] [address] PCP - [place] [employer] 06/11/22 Olya Rod MD [address] [place] [address] PCP - General Family Medicine 12/26/22 Orthopedics Teacher Relationship Specialty Start Date End Date Andressa Alanis SOFTWARE TOOLS ENGINEER [address] [facility] [address] [place] [address] PCP - [place] [employer] 06/11/22 Olya Rod MD [address] [place] [address] PCP - General Family Medicine 12/26/22 Orthopedics Teacher Relationship Specialty Start Date End Date Olya Rod MD [address] [place] [address] PCP - General Family Medicine 03/04/17 Orthopedics Teacher Relationship Specialty Start Date End Date Olya Rod MD PCP - General Family Medicine 12/26/22 Orthopedics Teacher Relationship Specialty Start Date End Date Olya Rod MD PCP - General Family Medicine 12/26/22 Orthopedics Teacher Relationship Specialty Start Date End Date Olya Rod MD [address] Provider retired 09/09/24 [place] [address] PCP - General Family Medicine 03/04/17 Orthopedics Teacher Relationship Specialty Start Date End Date Olya Rod MD PCP - General Family Medicine 12/26/22 Goals (unrecognized section and content) Goals may be documented in a n alternate section FOR RECORDS PERTAINING TO PATIENTS WHO ARE OR HAVE BEEN ENROLLED IN A CHEMICAL DEPENDENCY/SUBSTANCEABUSE PROGRAM, SOME INFORMATION MAY BE OMITTED. This clinical summary was aggregated from multiple sources. Caution should be exercised in using it in the provision of clinical care. This summary normalizes information from multiple sources, and as a consequence, information in this document may materially change the coding, format and clinical context of patient data. In addition, data may be omitted in some cases. CLINICAL DECISIONS SHOULD BE BASED ON THE PRIMARY CLINICAL RECORDS. [facility] [employer] [facility] provides no warranty or guarantee of the accuracy or completeness of information in this document.
== END 2024-11-12 10:01 | disposition home or self-care (01) ==
LOC: MAMMO 10:00
PROVIDERS: PCP Family Medicine; Visit Provider Obstetrics & Gynecology
DX: Z12.31 Encounter for screening mammogram for malignant neoplasm of breast (principal); Z80.3 Family history of malignant neoplasm of breast
CPT/HCPCS: 77063; 77067

== ENCOUNTER 2025-01-19 20:11 | Outpatient (REF) | payer BC, SELFPAY ==
--- OUTSIDE RECORDS SUMMARY | 2025-01-15 09:15 | XMS_ITS | Encounter Summary ---
Author Organization [facility] Address [address] [facility] [place] [address] Care Team Providers Care Hogshead Stock Clerk Name Role Phone Unallocated, Noms Provider Primary Care Provi nguyễn Reason for Visit * Reason Comments Post-op Encounter Details Date Type Department Care Team (Late st Contact Info) Description 01/15/2025 9:15 AM EDT Office Visit [facility] [address] [place] [phone] Mikel Jasso NP [address] [place], [place] [phone] Status post trigger finger release (Primary Dx) Social History Tobacco Use Types Packs/Day Years [...] on file documented as of this encounter Progress Notes * Mikel Jasso NP - 01/15/2025 9:15 AM EDT Images from the original note were not included. HISTORY OF PRESENT ILLNESS: POST OP PT Staecy Morelos is an 59 y.o. @ female. 1ST PO S/P LT THUMB TRIGGER FINGER 12/30/24 (2 WKS 2 DAYS) @ [facility]. DENIES PAIN OR SORENESS. NO PAIN MEDS. DENIES N/T. DENIES LOCKING. DOES NOT WAKE AT HS. KEEPS COVERED WITH BANDAID. DENIES DRAINAGE. STITCHES INTACT, REMOVED TODAY. INCISION HEALING WELL. REVIEW OF SYSTEMS: General: Denies fever, fatigue or weight loss Lungs: Denies SOB Cardio: Denies chest pain GI: Denies indigestion or abdominal pain Neuro: Denies numbness or tingling, denies new onset paralysis Musculoskeletal: ( see note) PHYSICAL EXAM: Left Hand Exam Left hand exam is normal. Tenderness The patient is experiencing tenderness in the palmar area (EXPECTED POST OPERATIVE SORENESS AT INICISION.). Range of Motion The patient has normal left wrist ROM. Muscle Strength The patient has normal left wrist strength (MOTORS HAND AND WRIST WITHIN LIMITS OF SURGERY). Other Erythema: absent Scars: present (WELL HEALING, SUTURES PRESENT, REMOVED) Sensation: normal Pulse: present Comments: The operative upper extremity was neurovascularly unchanged. Patient was able to motor fingers and thumb to operative upper extremity in all anatomic planes with 5 out of 5 strength. Radialand ulnar pulses were present and equal bilaterally postoperatively. Sensation to light touch was intact to all dermatomes to operative upper extremity postoperatively. Capillary refill was less than2 seconds postoperatively to operative upper extremity nailbeds. Compartments were soft to operative upper extremity postoperatively. Physical Exam Results Procedures No orders of the defined types were placed in this encounter. ASSESSMENT: ICD-10-CM 1. Status post trigger finger release Z98.890 PLAN: Assessment & Plan 2 weeks s/p trigger thumb release: Plan: I reviewed Post Op care and instructions with the patient.No forceful gripping for 4 weeks from the date of surgery. Work on rom of fingers. use for light activities such as eating, keyboarding, writing and phone.She will call if symptoms fail to improve. Qu estions answered in laymen terms at the bedside. The diagnosis, home exercise plan and any ongoing restrictions/ recommendations reviewed. If unable to be reached in office, I recommend evaluation atnearest Emergency Room if any symptoms worsened or new symptoms develop for requiring urgent evaluation. documented in this encounter Plan of Treatment Upcoming Encounters Date Type Department Care Team (Late st Contact Info) Description 01/26/2026 2:00 PM EDT Procedure Visit [facility] [address] [place] [address] [place] [address] Manuel Orellana, [address] [place] [address] 02/18/2026 10:45 AM EDT Office Visit [facility] [address] [place] [address] Mikel Jasso, DEALMAKER [address] [place] [address] documented as of this encounter Visit Diagnoses Diagnosis Status post trigger finger release- Primary documented in this encounter Care Teams Hogshead Stock Clerk Relationship Specialty Start Date End Date Unallocated, Noms Lenard, [place] [address] PCP - General Family Medicine 12/09/24 documented as of this encounter
--- OUTSIDE RECORDS SUMMARY | 2025-01-19 14:00 | XMS_ITS | Encounter Summary ---
Author Organization [facility] Address [address] [place] [address] Care Team Providers Care Catering Convention Services Manager Name Role Phone Unallocated, Noms Provider Primary Care Provi nguyễn Reason for Visit * Reason Comments Well Women Visit Encounter Details Date Type Department Care Team (Late Contact Info) Description 01/19/2025 2:00 PM EDT Office Visit [facility] [place] [facility] [address] [facility] [place] [phone] Manuel Orellana, [address] [facility] [place] [address] Well woman exam with routine gynecological exam; Breast cancer screening by mammogram; Postmenopausal state Social History Tobacco Use Types Packs/Day Years [...] on file documented as of this encounter Last Filed Vital Signs Vital Sign Reading Time Taken Comments Blood Pressure 136/86 01/19/2025 2:10 PM EDT Pulse - - Temperature - - Respiratory Rate - - Oxygen Saturation - - Inhaled Oxygen Concentration - - Weight 98.8 kg (217 lb 12.8 oz) 01/19/2025 2:10 PM EDT Height - - Body Mass Index 39.84 12/15/2024 10:41 AM EDT documented in this encounter Plan of Treatment Upcoming Encounters Date Type Department Care Team (Late Contact Info) Description 01/26/2026 2:00 PM EDT Procedure Visit [facility] [address] [facility] [place] [address] Manuel Orellana DO [address] [facility] [place] [address] 02/18/2026 10:45 AM EDT Office Visit [facility] [address] [place] [address] Mikel Jasso, SHRUB GROWER [address] [place] [address] Scheduled Orders Name Type Priority Associated Diagnoses Orde r Schedule Bilateral screening mammogram Imaging Routine Breast cancer screening by mammogram Expected: 01/19/2025, Expires: 03/21/2026 DEXA bone density Imaging Routine Postmenopausal state Expected: 01/19/2025 (Approximate), Expires: 01/19/2026 THIN PREP TIS PAP AND HR HPV DNA Pathology and Cytology Routine Well woman exam with routine gynecological exam Ordered: 01/19/2025 documented as of this encounter Visit Diagnoses Diagnosis Well woman exam with routine gynecological exam Routine gynecological examination Breast cancer screening by mammogram Postmenopausal state Asymptomatic postmenopausal status (age-related) (natural) documented in this encounter Care Teams Catering Convention Services Manager Relationship Specialty Start Date End Date Unallocated, [place] [address] PCP - General Family Medicine 12/09/24 documented as of this encounter
--- OUTSIDE RECORDS SUMMARY | 2025-01-19 20:15 | XMS_ITS | Encounter Summary ---
Author Organization [facility] [email or web address] Address [id number] [address] [place] [address] Care Team Providers Care President Ceo & Founder Name Role Phone James Schultz MD Primary Care Provider [phone] Encounter Details Date Type Department Care Team (Late st Contact Info) Description 10/23/2023 Orders Only [facility] [address] [place] [phone] External, Scanning Provider Social History Tobacco Use [...] Care Team (Late st Contact Info) Description 03/25/2025 10:00 AM EDT Office Visit [facility] [address] [place] [phone] James Schultz MD [address] [place] [phone] documented as of this encounter Procedures Procedure Name Priority Date/Time Associated Diagnosis Comments MAMMOGRAPHY Routine 10/23/2023 10:19 AM EDT documented in this encounter Results * HM MAMMOGRAPHY (10/23/2023 10:19 AM EDT) Anatomical Region Laterality Modality Other us Scanning Provider External HEALTH MAINTENANCE Fi nal Result documented in this encounter Visit Diagnoses Not on filedocumented in this encounter Additional Health Concerns Assessment Noted Time PHQ-9 Depression Total Score: 14 09/06/ 024 7:00 AM EDT A Body Mass Index follow-up plan has been documented for the patient 09/23/2021 3:28 PM EDT documented as of this encounter Care Teams President Ceo & Founder Relationship Specialty Start Date End Date James Schultz MD [address] [place] [phone] PCP - General Internal Medicine 09/23/24 documented as of this encounter
--- OUTSIDE RECORDS SUMMARY | 2025-01-19 20:15 | XMS_ITS | Encounter Summary ---
Author Organization [facility] Address [address] [facility] [place] [address] Care Team Providers Care Self Pay Specialist Name Role Phone Unallocated, Noms Provider Primary Care Provi nguyễn Encounter Details Date Type Department Care Team (Late Contact Info) Description 01/19/2025 Bamboo flowsheet [facility] [place] [address] Manuel Orellana DO [facility] [address] [place], [place] [address] Social History Tobacco Use Types Packs/Day Years [...] 01/26/2026 2:00 PM EDT Procedure Visit [facility] [address] [place] [address] Manuel Orellana DO [facility] [place] [id number] 02/18/2026 10:45 AM EDT Office Visit [facility] [place] [address] Mikel Jasso, SERVICE CAR DRIVER [address] [place] [address] documented as of this encounter Visit Diagnoses Not on filedocumented in this encounter Care Teams Self Pay Specialist Relationship Specialty Start Date End Date Unallocated, Noms Provider, [address] [place], [place] [phone] PCP - General Family Medicine 12/09/24 documented as of this encounter
--- OUTSIDE RECORDS SUMMARY | 2025-01-19 20:15 | XMS_ITS | Encounter Summary ---
Author Organization [employer] [facility] tem Address [id number] [address] [place] [address] Care Team Providers Care Manager Spa Name Role Phone James Schultz MD Primary Care Provider [phone] Encounter Details Date Type Department Care Team (Late st Contact Info) Description 05/08/2022 Orders Only [facility] [place] [phone] Heide Orozco LPN Mixed hyperlipidemia Social History [...] EDT Office Visit [facility] [address] [place] [address] James Schultz MD [address] [place] [address] documented as of this encounter Procedures Procedure Name Priority Date/Time Associated Diagnosis Comments GGT Routine 05/05/2022 Mixed hyperlipidemia ALT Routine 05/05/2022 Mixed hyperlipidemia AST Routine 05/05/2022 Mixed hyperlipidemia LIPID PROFILE Routine 05/05/2022 Mixed hyperlipidemia documented in this encounter Results * ALT (05/05/2022) 05/05/2022 Ken Rod MD LAB BLOOD ORDERABLES Final R esult Performing Organization Address City/[facility]/ZIP Co de Phone Number SUNQUEST * AST (05/05/2022) 05/05/2022 Ken Rod MD LAB BLOOD ORDERABLES Final R esult Performing Organization Address City/[facility]/ZIP Co de Phone Number SUNQUEST * GGT (05/05/2022) 05/05/2022 Ken Rod MD LAB BLOOD ORDERABLES Final R esult Performing Organization Address City/[facility]/ZIP Co de Phone Number SUNQUEST * (ABNORMAL) Lipid [...] Noted Time PHQ-9 Depression Total Score: 10 022 1:00 PM EDT A Body Mass Index follow-up plan has been documented for the patient 09/23/2021 3:28 PM EDT documented as of this encounter Care Teams Manager Spa Relationship Specialty Start Date End Date James Schultz MD [address] [place] [address] PCP - General Internal Medicine 09/23/24 documented as of this encounter
--- OUTSIDE RECORDS SUMMARY | 2025-01-19 20:15 | XMS_ITS | Encounter Summary ---
Author Organization [facility] Address [address] [facility] [address] Care Team Providers Care Coordinating Producer Name Role Phone Andressa Alanis Lenin OPERATING SYSTEMS PROGRAMMER Unavailable [phone] Olya Dudley MD Primary Care Provider [phone] Unallocated, Noms Provider Primary Care Provi nguyễn Encounter Details Date Type Department Care Team (Late st Contact Info) Description 10/22/2023 Clinisync Result Encounter [facility] External Department Unsolicited Manuel Orellana DO [address] [place] [address] Social History Tobacco Use Types Packs/Day Years [...] 2:00 PM EDT Procedure Visit [facility] [place] [facility] [address] [facility] [phone] Manuel Orellana DO [address] [place] [address] 02/18/2026 10:45 AM EDT [facility] [address] [facility] [phone] Mikel Jasso, OPERATING SYSTEMS PROGRAMMER [address] [place], [place] [phone] documented as of this encounter Procedures Procedure Name Priority Date/Time Associated Diagnosis Comments MM TOMOSYNTHESIS SCREENING BI 10/22/2023 2:08 PM EDT documented in this encounter Results * MM TOMOSYNTHESIS SCREENING BI (10/22/2023 2:08 PM EDT) Anatomical Region Laterality Modality Other 10/22/2023 2:08 PM EDT Narrative 10/22/2023 2:09 PM EDT The [address] [address] Mammography Report Signed Patient: ESTELA MORELOS MR#: [id number] : 1965 Acct:[id number] Age/Sex: 58 / F ADM Date: 10/22/23 Loc: MAMMO Attending Dr: Manuel Orellana D.O. Ordering Physician: Manuel Orellana D.O. Results: Date of Service: 10/22/23 Follow Up: Procedure(s): MM tomosynthesis screening BI Accession Number(s): [id number] cc: OLYA DUDLEY ; Manuel Orellana D.O. Patient Name: ESTELA MORELOS MR#: [id number] : 1965 Exam Date: 10/22/2023 Ordering Doctor: [...] breast cancer at age 51. LOCATION: The [facility] BREAST COMPOSITION: There are scattered areas [...] Signed By: 10/22/23 1409 DD/ 1408 TD/TT: Human Anatomy Teacher: Procedure Note Radiology, Radiologist, - 10/22/2023 The [place] [id number] Mammography Report Signed Patient: ESTELA MORELOS AMR#: [id number] : 1965Acct:[id number] Age/Sex: 58 / FADM Date: 10/22/23 Loc: MAMMO Attending Dr: Manuel Orellana D.O. Ordering Physician: Manuel Orellana D.O.Results: Date of Service: 10/22/23Follow Up: Procedure(s): MM tomosynthesis screening BI Accession Number(s): [id number] cc: OLYA DUDLEY ; Manuel Orellana D.O. Patient Name: ESTELA MORELOS MR#: [id number] : 1965 Exam Date: 10/22/2023 Ordering Doctor: [...] breast cancer at age 51. LOCATION: The [facility] BREAST COMPOSITION: There are scattered areas [...] M.D. Signed By:10/22/23 1409 DD/ 1408 TD/TT: Human Anatomy Teacher: Manuel Sanderso DO [facility] Final Result documented in this encounter Visit Diagnoses Not on filedocumented in this encounter Care Teams Coordinating Producer Relationship Specialty Start Date End Date Andressa Alanis NP PCP - [facility] 06/11/2206/10 Olya Dudley MD PCP - General Family Medicine 12/26/22 12/08/24 Unallocated, Noms MD [address] [address] PCP - General Family Medicine 12/09/24 documented as of this encounter
--- OUTSIDE RECORDS SUMMARY | 2025-01-19 20:15 | XMS_ITS | Encounter Summary ---
Author Organization [facility] Address [id number] [address] [place] [address] Care Team Providers Care Windrower Operator Name Role Phone James Schultz MD Primary Care Provider [phone] Reason for Visit * Reason Onset Date Comments Med Refill 04/30/2020 Encounter Details Date Type Department Care Team (Late st Contact Info) Description 04/30/2020 Refill [facility] [address] [place] [phone] Heide Orozco LPN Social History Tobacco Use [...] EDT Office Visit [facility] [address] [place] [phone] James Schultz MD [address] [place] [address] documented as of this encounter Visit Diagnoses Not on filedocumented in this encounter Additional Health Concerns Assessment Noted Time PHQ-9 Depression Total Score: 0 11/24/19 20 1:00 PM EDT A Body Mass Index follow-up plan has been documented for the patient 05/14/2018 5:02 PM EST documented as of this encounter Care Teams Windrower Operator Relationship Specialty Start Date End Date James Schultz MD [address] [place] [phone] PCP - General Internal Medicine 09/23/24 documented as of this encounter
--- OUTSIDE RECORDS SUMMARY | 2025-01-19 20:15 | XMS_ITS | Clinical Summary ---
Author Organization [employer] s tem Address [id number] [address] [place] [address] Care Team Providers Care Patient Admitting Representative Name Role Phone James Schultz MD Primary Care Provider [phone] Allergies Active Allergy Reactions Criticality Noted Date Comments No Known Drug Allergies 05/18/2017 Medications FERROUS SULFATE (IRON ORAL) Take by mouth in the morning. Active vitamin B complex/folic acid (SUPER B MAXI COMPLEX ORAL) Take by mouth in the morning. Active olopatadine (PATADAY) 0.2 % drops Administer 1 drop to both eyes in the morning. 9 Active calcium carbonate/vitami n D3 (CALCIUM 600 + D,3, ORAL) Take by mouth in the morning. Active albuterol (PROVENTIL HFA;VENTOLIN HFA) 90 mcg/actuation inhalerIndicatio ns:Mild intermittent asthma without complication Inhale 2 puffs 4 (four) times a day as needed for wheezing. 18 g 3 3 Active cetirizine (ZyrTEC) 10 mg tablet Take 1 tablet (10 mg total) by mouth in the morning. Active atorvastatin (LIPITOR) 10 mg tablet TAKE 1 TABLET IN THE MORNING 90 tablet 2 4 Active buPROPion XL (WELLBUTRIN XL) 300 mg 24 hr tabletIndication s:Routine general medical examination at a health care facility TAKE 1 TABLET EVERY MORNING 90 tablet 3 5 Active sertraline (ZOLOFT) 50 mg tablet TAKE 1 AND 1/2 TABLETS EVERY MORNING 135 tablet 5 Active SYNTHROID 50 mcg tablet TAKE 1 TABLET EVERY MORNING 90 tablet 5 Active montelukast (SINGULAIR) 10 mg tablet TAKE 1 TABLET NIGHTLY 90 tablet 5 Active butalbital-aceta minophen-caff (FIORICET, ESGIC) 50-325-40 mg per tablet Take 1-2 tablets by mouth every 6 (six) hours as needed for headaches. 30 tablet 4 025 Discontin ued(Stop Taking at Discharge ) Active Problems Problem Noted Date Diagnosed Date Primary osteoarthritis of right knee 04/09/2024 Asthma 11/12/2017 Essential hypertension, benign 05/29/2017 Acquired hypothyroidism 05/18/2017 Encounters Date Type Department Care Team Description 12/30/2024 2:26 PM EDT Anesthesia Event [facility] - Surgery [address] [place] [phone] Ken Oliver MD Reynolds, Vern D, DO 12/30/2024 1:45 PM EDT - 12/30/2024 2:45 PM EDT Surgery [facility] - Surgery [address] [place] [phone] Blas Azevedo Jr., DO RELEASE TRIGGER FINGER [[id number] (CPT )] 12/30/2024 11:52 AM EDT - 12/30/2024 3:42 PM EDT Hospital Encounter [facility] - Surgery [address] [place] [phone] Blas Azevedo Jr., DO Discharge Disposition: Home 12/30/2024 Travel 12/09/2024 10:07 AM EDT - 12/09/2024 11:59 PM EDT Hospital Encounter [facility] - Cardiovascular [address] [place] [address] Blas Azevedo Jr., DO Preop examination; Hypertension, unspecified type Discharge Disposition: Home 12/09/2024 9:45 AM EDT Procedure visit [facility] - Pre Admit [address] [place] [phone] Preop examination (Primary Dx); Hypertension, unspecified type 12/09/2024 Travel 11/16/2024 Refill [facility] [address] [place] [address] Ken Rod MD 11/14/2024 Orders Only [facility] [address] [address] External, Scanning Provider from Last 3 Months Immunizations Immunization Administration [...] drink = 0.6 oz pur e alcohol) [employer] Answer Date Recorded In the past 12 months has [employer], gas, oil, or water [employer] threatened to shut off services in your [...] often do you attend chur ch or restorationist services? Never 04/09/2024 Do you belong to any clubs o r organizations such as hoahaoism groups, unions, fraternal or athletic groups, or [...] Answer Date Recorded Total Score 0 09/23/2024 [facility] of Occupat ional Health - Occupational Stress [...] Recorded Do you need help finding a l ocal career center and/or a training program? No [...] Sign Reading Time Taken Comments Blood Pressure 143/86 12/30/2024 3:24 PM EDT Pulse 65 12/30/2024 3:24 PM EDT Temperature 36.3 C (97.3 F) 12/30/2024 3:09 PM EDT Respiratory Rate 15 12/30/2024 3:24 PM EDT Oxygen Saturation 97% 12/30/2024 3:24 PM EDT Inhaled Oxygen Concentration - - Weight 96.2 kg (212 lb) 12/30/2024 12:13 PM EDT Height 157.5 cm (5' 2 ) 12/30/2024 12:13 PM EDT Body Mass Index 38.78 12/30/2024 12:13 PM EDT Plan of Treatment Upcoming Encounters Date Type Department Care Team (Late st Contact Info) Description 03/25/2025 10:00 AM EDT Office Visit [facility] [address] [place] [address] James Schultz MD [address] [place] [address] Health Maintenance Due Date Last Done Comments Zoster (Shingles) Vaccine (1 of 2) 2016 COVID-19 Vaccine (2023-2 5 season) 2024 06/07/2021, 06/06/2021, 05/02/2021, Additional history exists Influenza Vaccine 02/09/2025 Adult BMI Follow Up Plan 09/23/2025 09/23/2024 Depression Screening 09/23/2025 09/23/2024 Mammogram 11/12/2025 11/12/2024, 10/09, 07/13/2022, Additional history exists Adult BMI Screening 12/30/2025 12/30/2024 Tobacco Screening 12/30/2025 12/30/2024 DTaP,Tdap and Td Vaccines (2 - Td or Tdap) 01/16/2026 01/17/2016 Pap Smear 01/13/2027 01/14/2024 Colonoscopy 06/28/2027 06/28/2017 Medical Devices Implanted Type Area [employer] Operator Device Identifier Shelf Expiration Date Model / Serial / Lot Cement Bn Bio 40gm Rpl [id number] - Sna - [id number] Implanted:Qt y: 1 on 04/09/2024 by Wilfred Desouza DO at [facility] Cement Right: Knee [employer] [id number] 04/10/2026 [id number] / NA / [id number] Cement Bn Bio 40gm Rpl [id number] - Sna - [id number] Implanted:Qt y: 1 on 04/09/2024 by Wilfred Desouza DO at [facility] Cement Right: Knee [employer] [id number] 04/10/2026 [id number] / NA / [id number] Surface Artc 11mm Persona Mdl Cngr 6-7 Cd Kn Rt Vivacit-E - Sna - [id number] Implanted:Qt y: 1 on 04/09/2024 by Wilfred Desouza DO at [facility] Orthopedic Implant Right: Knee [employer] [id number] 10/29/2028 42-5221-004 -11 / NA / [id number] Component Fem 7 Std Kn Rt Crcte Rtn Cmnt Persona Cocr - Sna - [id number] Implanted:Qt y: 1 on 04/09/2024 by Wilfred Desouza DO at [facility] Orthopedic Implant Right: Knee [employer] [id number] 10/13/2033 42-5026-062 -02 / NA / [id number] Component Ptlr 32mm Persona Alply Kn Strl Lf - Sna - [id number] Implanted:Qt y: 1 on 04/09/2024 by Wilfred Desouza DO at [facility] Orthopedic Implant Right: Knee [employer] [id number] 02/12/2029 42-5400-000 -32 / NA / [id number] Baseplate Tib 5d D Kn Rt Cmnt Stm Persona Tiv Strl - Sna - [id number] Implanted:Qt y: 1 on 04/09/2024 by Wilfred Desouza DO at [facility] Plate Right: Knee [employer] [id number] 10/19/2033 42-5320-067 -02 / NA / [id number] Explanted Type Area [employer] Operator Device Identifier Shelf Expiration Date Model / Serial / Lot Screw Bn 35mm 6.5mm St Hip Actb Trlg Strl Rpl [id number]+32 - Sna - [id number] Explanted:Qty: 1 on 04/09/2024 by Wilfred Desouza DO at [facility] Screw Right: Knee [employer] [id number] 10/04/20330- 5-35 / NA / [id number] Screw Bn 35mm 6.5mm St Hip Actb Trlg Strl Rpl [id number]+32 - Sna - [id number] Explanted:Qty: 1 on 04/09/2024 by Wilfred Desouza DO at [facility] Screw Right: Knee [employer] [id number] 10/29/2033- 5-35 / NA / [id number] Guide 27mm Hx Hd Scr Srg - Sna - [id number] Explanted:Qty: 1 on 04/09/2024 by Wilfred Desouza DO at [facility] Screw Right: Knee [employer] [id number] 12/21/2033-5983-04 0-27 / NA / [id number] Screw Gd 48mm Qd-Spr Hex Hd Mis Strl - Sna - [id number] Explanted:Qty: 1 on 04/09/2024 by Wilfred Desouza, DO at [facility] Screw Right: Knee [employer] [id number] 12/23/2033- 0-48 / NA / [id number] Screw Gd 48mm Qd-Spr Hex Hd Mis Strl - Sna - [id number] Explanted:Qty: 1 on 04/09/2024 by Wilfred Desouza, DO at [facility] Screw Right: Knee [employer] [id number] 11/19/2033- 0-48 / NA / [id number] Guide 27mm Hx Hd Scr Srg - Sna - [id number] Explanted:Qty: 1 on 04/09/2024 by Wilfred Desouza, DO at [facility] Screw Right: Knee [employer] [id number] 12/21/2033 0-27 / NA / [id number] Procedures Procedure Name Priority Date/Time Associated Diagnosis Comments ANESTHESIA PERIPHERAL BLOCK Routine 12/30/2024 2:42 PM EDT [place] INCISE FINGER TENDON SHEATH 12/30/2024 2:26 PM EDT left trigger thumb Special Needs Arjay block ECG 12-LEAD Routine 12/09/2024 10:10 AM EDT Preop examination Hypertension, unspecified type HM MAMMOGRAPHY Routine 11/12/2024 12:14 PM EDT COLONOSCOPY 06/28/2017 7:05 AM EST from Last 3 Months or Most Recently Relevant to Health Maintenance Results * PM PERIPHERAL BLOCK (12/30/2024 2:42 PM EDT) Zaria Faith APRN-CRNA - 12/30/2024 2:42 PM EDT TEQUILA Martinez 12/30/2024 2:44 PM Peripheral Block Patient Location: OR Start Time: 12/30/2024 2:31 PM End Time: 12/30/2024 2:33 PM Reason for Block: Primary Anesthetic and At Surgeon's Request IV In situ: Peripheral General Information and Staff: Service Provider: TEQUILA Martinez Placed by: TEQUILA Martinez Checklist: Patient Identified, IV Checked, Site Marked, Risks and Benefits Discussed, Surgical Consent, Monitors and Equipment Checked, Pre-op Evaluation and Timeout Performed Fire Risk Assessment Score: 0 Positioning and Technique: Patient Position: Supine Prep: Chlorhexidine and Isopropyl Alcohol Monitoring: Heart Rate, National Insurance Officer, Continuous Pulse Ox and Blood Pressure Oxygen Source: Face Mask Location: Margarito Block Laterality: Left Injection Technique: Single Shot Number of Attempts: 1 Anesthesia Block Medication Given: lidocaine (XYLOCAINE) 5 mg/mL (0.5 %) injection - intravenous 50 mL - 12/30/2024 2:33:00 PM Anxiolytics Given: Yes Needle type: PIV. Assessment: Injection Assessment: No Paresthesia on Injection Heart Rate Change: No Slow Fractionated Injection: Yes Comments: Pt arm wrapped in eshmark, tourniquet inflated to 250mmHg. No palpable radial or ulnar pulse. Insitu PIV used for administration of block, D/C'd by nursing staff prior to surgical prep. us Ken Oliver MD ANESTHESIA ORDERABLES Final R esult * ECG 12 lead (12/09/2024 10:10 AM EDT) 12/09/2024 10:1 0 AM EDT Narrative TRACEMASTERVUE - 12/10/2024 9:07 AM EDT Blas Azevedo Jr., DO ECG ORDERABLES Final Result TRACEMASTERVUE * MAMMOGRAPHY (11/12/2024 12:14 PM EDT) Anatomical Region Laterality Modality Other Scanning Provider External HEALTH MAINTENANCE nal Result * Colonoscopy (06/28/2017 7:05 AM EST) 06/28/2017 7:05 AM EST Narrative PM CARDIOVASCULAR - 06/28/2017 7:59 AM [facility] Patient Name: Stacey Ortega Procedure Date No Time: 06/28/2017 Date of : 1965 Admit Type: Outpatient Age: 51 Room: [place] [address] Gender: Female Note Status: Finalized Attending MD: Josh Flores DO Procedure: Colonoscopy Indications: Screening for colorectal malignant neoplasm Providers: Josh Flores DO Referring MD: Josh Flores DO Medicines: Propofol per Anesthesia Complications: No immediate complications. Procedure: After I obtained informed consent, the scope was passed under direct vision. Throughout the procedure, the patient's blood pressure, pulse, and oxygen saturations were monitored continuously. The EyesBot [id number] #[id number] adult colonscope was introduced through the anus [...] office PRN. Procedure Code(s): --- Professional --- 68348, Colonoscopy, flexible; diagnostic, including collection of specimen(s) by brushing or washing, when performed (separate procedure) Diagnosis Code(s): --- Professional --- Z12.11, Encounter for screening for malignant neoplasm of colon CPT copyright 2016 [employer]. All rights reserved. The codes documented in this report are preliminary and upon solar installation crew supervisor review may be revised to meet current compliance requirements. DO Josh Mejias DO 06/28/2017 7:59:31 AM Number of Addenda: 0 Note Initiated On: 06/28/2017 7:05 AM Procedure Note Josh Flores DO - 06/28/2017 [facility] Patient Name: Stacey Ortega Procedure Date No Time: 06/28/2017 Date of : 1965 Admit Type: Outpatient Age: 51 Room: [place] [address] Gender: Female Note Status: Finalized Attending MD: Josh Flores DO Procedure: Colonoscopy Indications: Screening for colorectal malignant neoplasm Providers: Josh Flores DO Referring MD: Josh Flores DO Medicines: Propofol per Anesthesia Complications: No immediate complications. Procedure: After I obtained informed consent, the scope waspassed under direct vision. Throughout the procedure, the patient's blood pressure, pulse, and oxygensaturations were monitored continuously. The Olympus [id number] #[id number] adult colonscope was introduced through the anus [...] office PRN. Procedure Code(s): --- Professional --- 86371, Colonoscopy, flexible; diagnostic, including collection of specimen(s) by brushing or washing,when performed (separate procedure) Diagnosis Code(s): --- Professional --- Z12.11, Encounter for screening for malignant neoplasm of colon CPT copyright 2016 [employer]. All rights reserved. The codes documented in this report are preliminary and upon solar installation crew supervisor reviewmay be revised to meet current compliance requirements. DO Josh Mejias DO 06/28/2017 7:59:31 AM Number of Addenda: 0 Note Initiated On: 06/28/2017 7:05 AM us Josh Flores DO GI PROCEDURE ORDERABLES Fin al Result PM CARDIOVASCULAR from Last 3 Months or Most Recently Relevant [place] [address] ANTHEM Advance Directives * Full Code (Latest Code Status on File) Date Activated Date Inactivated Comments 04/09/2024 1:02 PM 04/10/2024 4:57 PM Care Teams Patient Admitting Representative Relationship Specialty Start Date End Date James Schultz MD [address] [place] [address] PCP - General Internal Medicine 09/23/24
--- OUTSIDE RECORDS SUMMARY | 2025-01-19 20:15 | XMS_ITS | Encounter Summary ---
Author Organization [facility] [employer] Sys [employer] Address [id number] [address] [place] [address] Care Team Providers Care Event Specialist Product Demonstrator Name Role Phone James Schultz MD Primary Care Provider Encounter Details Date Type Department Care Team (Late st Contact Info) Description 11/14/2024 Orders Only [facility] [address] [place] [phone] External, Scanning Provider Social History Tobacco Use Types Packs/Day Years Used Date Smoking Tobacco: Never Smokeless Tobacco: Never Alcohol Use Standard Drinks/Week Comments Not Currently 0 (1 standard drink = 0.6 oz pur e alcohol) occasional C Utilities Answer Date Recorded In the past 12 months has [employer] electric, gas, oil, or water company threatened [...] often do you attend chur ch or tenriism services? Never 04/09/2024 Do you belong to [...] Answer Date Recorded Total Score 0 09/23/2024 [facility] of Occupat ional Health - Occupational Stress [...] Recorded Do you need help finding a [facility] and/or a training program? No [...] EDT Office Visit [facility] [address] [place] [address] James Schultz MD [address] [place] [address] documented as of this encounter Procedures Procedure Name Priority Date/Time Associated Diagnosis Comments MAMMOGRAPHY Routine 11/12/2024 12:14 PM EDT documented in this encounter Results * HM MAMMOGRAPHY (11/12/2024 12:14 PM EDT) Anatomical Region Laterality Modality Other us Scanning Provider External HEALTH MAINTENANCE Fi nal Result documented in this encounter Visit Diagnoses Not on filedocumented in this encounter Additional Health Concerns Assessment Noted Time PHQ-9 Depression Total Score: 0 09/24/19 25 10:22 AM EDT A Body Mass Index follow-up plan has been documented for the patient 09/23/2024 11:00 AM EDT documented as of this encounter Care Teams Event Specialist Product Demonstrator Relationship Specialty Start Date End Date James Schultz MD [facility] [place], [place] [address] PCP - General Internal Medicine 09/23/24 documented as of this encounter
--- OUTSIDE RECORDS SUMMARY | 2025-01-19 20:15 | XMS_ITS | Encounter Summary ---
Author Organization [facility] Address [address] [facility] [place] [address] Care Team Providers Care Medtronics Technician Name Role Phone Andressa Alanis Lenin FORMULA TECHNICIAN Unavailable [phone] Ken Rod MD Primary Care Provider [phone] Unallocated, Noms Provider Primary Care Provi nguyễn Encounter Details Date Type Department Care Team (Late st Contact Info) Description 01/23/2024 Orders Only [facility] [address] [place] [address] [place] [address] Michelle Diez LPN Social History Tobacco [...] PM EDT Procedure Visit [facility] [address] [place] [address] Manuel Orellana DO [address] [place], [place] [id number] 02/18/2026 10:45 AM EDT Office Visit [facility] [place] [address] Mikel Jasso, FORMULA TECHNICIAN [address] [place] [address] documented as of this encounter [...] on filedocumented in this encounter Care Teams Medtronics Technician Relationship Specialty Start Date End Date Andressa Alanis [facility] Ken Rod MD PCP - General Family Medicine 12/26/22 12/08/24 Unallocated, Noms Provider, [address] [place] [address] PCP - General Family Medicine 12/09/24 documented as of this encounter
--- OUTSIDE RECORDS SUMMARY | 2025-01-19 20:15 | XMS_ITS | Encounter Summary ---
Author Organization [facility] [employer] Sys [employer] Address [id number] [address] [place] [address] Care Team Providers Care Road Crew Member Name Role Phone James Schultz MD Primary Care Provider [phone] Encounter Details Date Type Department Care Team (Late st Contact Info) Description 06/02/2020 Orders Only [facility] [address] [place] [phone] Heide Orozco LPN Routine general medical examination [...] EDT Office Visit [facility] [place] [phone] James Schultz MD [address] [place], [place] [address] documented as of this encounter Procedures Procedure Name Priority Date/Time Associated Diagnosis Comments THYROID PROFILE INCLUDES TSH FT4 Routine 05/22/2020 Acquired hypothyroidism CBC WITH AUTO DIFFERENTIAL Routine 05/22/2020 Routine general medical examination at a health care facility LIPID PROFILE Routine 05/22/2020 Routine general medical examination at a [facility] care facility COMPREHENSIVE METABOLIC PANEL Routine 05/22/2020 Routine general medical examination at a [facility] care facility documented in this encounter Results * Thyroid profile includes TSH FT4 (05/22/2020) 05/22/2020 Ken Rod MD LAB BLOOD ORDERABLES Final R esult Performing Organization Address [facility] Co de Phone Number SUNQUEST * CBC auto differential (05/22/2020) 05/22/2020 Ken Rod MD LAB BLOOD ORDERABLES Final R esult Performing Organization Address [facility] Co de Phone Number SUNQUEST * Comprehensive metabolic panel (05/22/2020) 05/22/2020 Ken Rod MD LAB BLOOD ORDERABLES Final R esult Performing Organization Address [facility] Co de Phone Number SUNQUEST * (ABNORMAL) Lipid profile (05/22/2020) External Cholesterol 249(A) <=200 [employer] External Cholesterol:Hdl 5.1 4.4 - 7.1 [employer] External Hdl Cholesterol 49 <40 [employer] External Ldl (Calc) 168.6(A) <=100 [employer] External Triglycerides 157(A) <=150 [employer] External Very Low Lipoprotein 31.4 [facility] 05/22/2020 us Ken Rod MD LAB BLOOD ORDERABLES [...] documented as of this encounter Care Teams Road Crew Member Relationship Specialty Start Date End Date James Schultz MD [address] [place] [address] PCP - General Internal Medicine 09/23/24 documented as of this encounter
--- OUTSIDE RECORDS SUMMARY | 2025-01-19 20:15 | XMS_ITS | Encounter Summary ---
Author Organization [employer] Address [facility] [id number] [address] [place] [address] Care Team Providers Care Transport Engineer Name Role Phone James Schultz MD Primary Care Provider Reason for Referral * Consultation (Routine) - Closed Specialty Diagnoses / Procedures Referred By Mary carson Referred To Contact Neurology Diagnoses Migraine without status migrainosus, not intractable, unspecified migraine type Memory changes Ken Rod MD Phone: tel: fax: Porsche Mckeon MD [address] [place] [address] [address] [place] [address] Phone: tel: fax: Referral ID Status Reason Start Date Expiration Date V isits Requested Visits Authorized [id number] Closed Specialty Services Required 07/14/2020 07/14/2021 1 1 Encounter Details Date Type Department Care Team (Late st Contact Info) Description 07/14/2020 Orders Only [facility] [address] [place] [address] Ken Rod MD [address]. Provider retired 09/09/24 [place] [address] Migraine without status migrainosus, not [...] EDT Office Visit [facility] [address] [place] [phone] James Schultz MD [address] [place] [address] Scheduled Referrals Name Type Priority Associated Diagnoses [...] Time PHQ-9 Depression Total Score: 0 07/01/19 21 2:00 PM EST A Body Mass Index follow-up plan has been documented for the patient 05/20/2020 4:36 PM EST documented as of this encounter Care Teams Transport Engineer Relationship Specialty Start Date End Date James Schultz MD [facility] [place] [address] PCP - General Internal Medicine 09/23/24 documented as of this encounter
--- OUTSIDE RECORDS SUMMARY | 2025-01-19 20:15 | XMS_ITS | Encounter Summary ---
Author Organization [facility] Address [address] [facility] [place] [address] Care Team Providers Care Photographer Apprentice Lithographic Name Role Phone Unallocated, Noms Provider Primary Care Provi nguyễn Encounter Details Date Type Department Care Team (Late Contact Info) Description 01/15/2025 Bamboo flowsheet [facility] [address] [place] [address] Mikel Jasso, WARPING MACHINE OPERATOR [address] [place] [address] Social History Tobacco Use Types Packs/Day Years [...] 2:00 PM EDT Procedure Visit [facility] [address] [place] [address] Manuel Orellana DO [address] [place], [place] [id number] 02/18/2026 10:45 AM EDT Office Visit [facility] [address] [place] [address] Mikel Jasso, WARPING MACHINE OPERATOR [address] [place] [address] documented as of this encounter Visit Diagnoses Not on filedocumented in this encounter Care Teams Photographer Apprentice Lithographic Relationship Specialty Start Date End Date Unallocated, Noms Provider, [address] [place] [address] PCP - General Family Medicine 12/09/24 documented as of this encounter
--- OUTSIDE RECORDS SUMMARY | 2025-01-19 20:15 | XMS_ITS | Encounter Summary ---
Author Organization [facility] [employer] [facility] tem Address [facility] [place]-[id number] [address] [place] [address] Care Team Providers Care Process Control Manager Name Role Phone James Schultz MD Primary Care Provider [phone] Encounter Details Date Type Department Care Team (Late st Contact Info) Description 09/22/2020 Telephone [facility] [address] [place] [address] Ellen Kovacs, CAR CLEANER Social History Tobacco Use Types Packs/Day Years [...] EDT Office Visit [facility] [address] [place] [phone] James Schultz MD [address] [place] [address] documented as of this encounter Visit Diagnoses Not on filedocumented in this encounter Additional Health Concerns Assessment Noted Time PHQ-9 Depression Total Score: 0 09/22/19 21 8:00 AM EDT A Body Mass Index follow-up plan has been documented for the patient 05/20/2020 4:36 PM EST documented as of this encounter Care Teams Process Control Manager Relationship Specialty Start Date End Date James Schultz MD [address] [place] [address] PCP - General Internal Medicine 09/23/24 documented as of this encounter
--- OUTSIDE RECORDS SUMMARY | 2025-01-19 20:15 | XMS_ITS | Encounter Summary ---
Author Organization [facility] Address [id number] [address] [place] [address] Care Team Providers Care Mold Designer Name Role Phone James Schultz MD Primary Care Provider [phone] Encounter Details Date Type Department Care Team (Late st Contact Info) Description 03/20/2022 Telephone [facility] [address] [place] [address] Ken Rod MD [address]. Provider retired 09/09/24 [place], [place] [phone] Social History Tobacco Use Types Packs/Day Years [...] Lipitor, please send 30 day supply to [facility] and please print lab orders for repeat [...] Office Visit [facility] [address] [place] [phone] James Schultz MD [address] [place] [phone] documented as of this encounter Visit Diagnoses Not on filedocumented in this encounter Additional Health Concerns Assessment Noted Time PHQ-9 Depression Total Score: 022 1:00 PM EDT A Body Mass Index follow-up plan has been documented for the patient 09/23/2021 3:28 PM EDT documented as of this encounter Care Teams Mold Designer Relationship Specialty Start Date End Date James Schultz MD [address] [place] [phone] PCP - General Internal Medicine 09/23/24 documented as of this encounter
--- OUTSIDE RECORDS SUMMARY | 2025-01-19 20:15 | XMS_ITS | Encounter Summary ---
Author Organization [employer] [facility] tem Address [id number] [address] [place] [address] Care Team Providers Care Pocket Setter Lockstitch Name Role Phone James Schultz MD Primary Care Provider [phone] Encounter Details Date Type Department Care Team (Late st Contact Info) Description 05/04/2021 Orders Only [facility] [address] [place] [phone] Heide Orozco LPN Routine general medical examination [...] EDT Office Visit [facility] [address] [place] [phone] James Schultz MD [address] [place] [address] documented as of this encounter Procedures Procedure Name Priority Date/Time Associated Diagnosis Comments THYROID PROFILE INCLUDES TSH FT4 Routine 04/29/2021 Routine general medical examination at a [facility] care facility CBC WITH AUTO DIFFERENTIAL Routine 04/29/2021 Routine general medical examination at a health care facility COMPREHENSIVE METABOLIC PANEL Routine 04/29/2021 Routine general medical examination at a [facility] facility documented in this encounter Results * CBC auto differential (04/29/2021) 04/29/2021 Ken Rod MD LAB BLOOD ORDERABLES Final R esult Performing Organization Address [facility] de Phone Number SUNQUEST * Comprehensive metabolic panel (04/29/2021) 04/29/2021 Ken Rod MD LAB BLOOD ORDERABLES Final R esult Performing Organization Address [facility] de Phone Number SUNQUEST * Thyroid profile includes TSH FT4 (04/29/2021) 04/29/2021 Ken Rod MD LAB BLOOD ORDERABLES Final R esult Performing Organization Address [facility] de Phone Number SUNQUEST documented in this encounter Visit Diagnoses Diagnosis Routine general medical examination at a health care facility documented in this encounter Additional Health Concerns Assessment Noted Time PHQ-9 Depression Total Score: 0 03/25/20 21 3:00 PM EDT A Body Mass Index follow-up plan has been documented for the patient 05/20/2020 4:36 PM EST documented as of this encounter Care Teams Pocket Setter Lockstitch Relationship Specialty Start Date End Date James Schultz MD [address] [place] [address] PCP - General Internal Medicine 09/23/24 documented as of this encounter
--- OUTSIDE RECORDS SUMMARY | 2025-01-19 20:15 | XMS_ITS | Encounter Summary ---
Author Organization [employer] tem Address [id number] [address] [place] [address] Care Team Providers Care Molder Apprentice Name Role Phone James Schultz MD Primary Care Provider [phone] Encounter Details Date Type Department Care Team (Late st Contact Info) Description 03/12/2023 Telephone [facility] [address] [place] [address] Ken Rod MD [address]. Provider retired 09/09/24 [place], [place] [phone] Social History Tobacco Use Types Packs/Day Years [...] To: Joel Sanchez Clinical Staff Subject: Kevin sungell Kevin Rae has had the cough that he gets [...] EDT Office Visit [facility] [address] [place] [phone] James Schultz MD [address] [place], [place] [phone] documented as of this encounter Visit Diagnoses Not on filedocumented in this encounter Additional Health Concerns Assessment Noted Time PHQ-9 Depression Total Score: 14 023 7:00 AM EDT A Body Mass Index follow-up plan has been documented for the patient 09/23/2021 3:28 PM EDT documented as of this encounter Care Teams Molder Apprentice Relationship Specialty Start Date End Date James Schultz MD [address] [place], [place] [phone] PCP - General Internal Medicine 09/23/24 documented as of this encounter
--- OUTSIDE RECORDS SUMMARY | 2025-01-19 20:15 | XMS_ITS | Encounter Summary ---
Author Organization [facility] Address [address] [facility] [place] [address] Care Team Providers Care Weekday Babysitter Name Role Phone Andressa Alanis Lenin TRANSLITERATOR Unavailable [phone] Ken Rod MD Primary Care Provider [phone] Unallocated, Noms Provider Primary Care Provi nguyễn Encounter Details Date Type Department Care Team (Late st Contact Info) Description 03/13/2024 External Result Encounter [facility] [address] [facility] [address] [place] [address] Wilfred Desouza DO [address] [facility] [address] [place] [address] Social History Tobacco Use Types Packs/Day Years [...] Description 01/26/2026 2:00 PM EDT Procedure Visit [facility] [address] [place] [phone] Manuel Orellana DO [address] [place], [place] [phone] 02/18/2026 10:45 AM EDT Office Visit [facility] [address] [place] [phone] Mikel Jasso NP [address] [place] [address] documented as of this encounter Procedures Procedure [...] URINE NURSING Negative Negative [facility] Comment:PERFORMED AT [address] [place] [address] 04/09/2024 8:52 AM EDT 04/09/2024 3:58 PM EDT Wilfred Desouza DO LAB BLOOD ORDERABLES Final Result [facility] * XR chest 2 views (03/13/2024 3:11 PM EDT) Anatomical Region Laterality Modality Chest Radiographic Radha ging 03/13/2024 3:11 PM EDT Narrative 03/13/2024 3:10 PM EDT THIS EXAM WAS PERFORMED AT [facility] Clinical history: Preoperative evaluation the surgery. History [...] - 03/13/2024 THIS EXAM WAS PERFORMED AT [facility] Clinical history: Preoperative evaluation the surgery. History [...] Basic metabolic panel (03/13/2024 2:31 PM EDT) [facility] Sodium 141 134 - 146 mmol/L [facility] [...] not use a race coefficient. PERFORMED AT [facility] [address],[place] [address] 03/13/2024 2:31 PM EDT 03/13/2024 2:32 PM EDT Wilfred Desouza DO LAB BLOOD ORDERABLES Final Result [facility] * CBC auto differential (03/13/2024 2:31 PM EDT) [facility] WHITE BLOOD CELL COUNT, WBC 9.4 4.0 [...] 0.0 - 0.2 X10E9/L [facility] Comment:PERFORMED AT [facility] [address],[place] [address] 03/13/2024 2:31 PM EDT 03/13/2024 2:32 PM EDT Wilfred Desouza DO LAB BLOOD ORDERABLES Final Result [facility] documented in this encounter Visit Diagnoses Not on filedocumented in this encounter Care Teams Weekday Babysitter Relationship Specialty Start Date End Date Andressa Alanis NP PCP - [employer] [employer] 06/11/2206/10 Ken Rod MD PCP - General Family Medicine 12/26/22 12/08/24 Unallocated, Noms Provider, [address] [place] [address] PCP - General Family Medicine 12/09/24 documented as of this encounter
--- OUTSIDE RECORDS SUMMARY | 2025-01-19 20:15 | XMS_ITS | Encounter Summary ---
Author Organization [facility] Address [address] [facility] [place] [address] Care Team Providers Care Patient Relations Manager Name Role Phone Unallocated, Noms Provider Primary Care Provi nguyễn Encounter Details Date Type Department Care Team (Latest Contact Info) Description 01/15/2025 Travel Social History Tobacco Use Types Packs/Day Years [...] EDT Procedure Visit [facility] [place] [facility] [address] [facility] [place] [address] Manuel Orellana DO [address] [facility] [place] [address] 02/18/2026 10:45 AM EDT Office Visit [facility] [address] [place] [address] Mikel Jasso, ALLI [address] [place], [place] [phone] documented as of this encounter Visit Diagnoses Not on filedocumented in this encounter Care Teams Patient Relations Manager Relationship Specialty Start Date End Date Unallocated, Noms Provider [address] [place] [address] PCP - General Family Medicine 12/09/24 documented as of this encounter
--- OUTSIDE RECORDS SUMMARY | 2025-01-19 20:15 | XMS_ITS | Encounter Summary ---
Author Organization [facility] Address [address] [facility] [place] [address] Care Team Providers Care Makeup Instructor Name Role Phone Unallocated, Noms Provider Primary Care Provi nguyễn Encounter Details Date Type Department Care Team (Latest Contact Info) Description 01/12/2025 Travel Social History Tobacco Use Types Packs/Day [...] EDT Procedure Visit [facility] [place] [facility] [address] [facility] [place] [address] Manuel Orellana DO [address] [facility] [place] [address] 02/18/2026 10:45 AM EDT Office Visit [facility] [address] [place] [address] Mikel Jasso, ALLI [address] [place], [place] [phone] documented as of this encounter Visit Diagnoses Not on filedocumented in this encounter Care Teams Makeup Instructor Relationship Specialty Start Date End Date Unallocated, Noms Provider [address] [place] [address] PCP - General Family Medicine 12/09/24 documented as of this encounter
--- OUTSIDE RECORDS SUMMARY | 2025-01-19 20:15 | XMS_ITS | Encounter Summary ---
Author Organization [facility] tem Address [facility] [place] [place]-[id number] [address] [place] [address] Care Team Providers Care Wharf Hand Name Role Phone James Schultz MD Primary Care Provider [phone] Reason for Visit * Reason Onset Date Comments Med Refill 12/02/2021 Encounter Details Date Type Department Care Team (Late st Contact Info) Description 12/02/2021 Refill [facility] [place] [phone] Anju Ramsey CMA Social History Tobacco Use [...] a refill of butalbital acetaminophen sent to [facility] documented in this encounter Plan of Treatment Upcoming Encounters Date Type Department Care Team (Late st Contact Info) Description 03/25/2025 10:00 AM EDT Office Visit [facility] [address] [place] [phone] James Schultz MD [address] [place] [phone] documented as of this encounter Visit Diagnoses Not on filedocumented in this encounter Additional Health Concerns Assessment Noted Time PHQ-9 Depression Total Score: 16 022 3:00 PM EDT A Body Mass Index follow-up plan has been documented for the patient 09/23/2021 3:28 PM EDT documented as of this encounter Care Teams Wharf Hand Relationship Specialty Start Date End Date James Schultz MD [address] [place] [address] PCP - General Internal Medicine 09/23/24 documented as of this encounter
--- OUTSIDE RECORDS SUMMARY | 2025-01-19 20:15 | XMS_ITS | Encounter Summary ---
Author Organization [facility] tem Address [facility]-[id number] [address] [place] [address] Care Team Providers Care Medical Fee Clerk Name Role Phone James Schultz MD Primary Care Provider [phone] Encounter Details Date Type Department Care Team (Late st Contact Info) Description 06/01/2021 Orders Only [facility] [place] [phone] Ellen Kovacs CMA Routine general medical examination [...] Office Visit [facility] [address] [place] [phone] James Schultz MD [address] [place] [address] documented as of this encounter Procedures Procedure [...] documented as of this encounter Care Teams Medical Fee Clerk Relationship Specialty Start Date End Date James Schultz MD [address] [place] [address] PCP - General Internal Medicine 09/23/24 documented as of this encounter
--- OUTSIDE RECORDS SUMMARY | 2025-01-19 20:15 | XMS_ITS | Encounter Summary ---
Author Organization [facility] Sys tem Address [id number] [address] [place] [address] Care Team Providers Care Operations Team Leader Name Role Phone James Schultz MD Primary Care Provider [phone] Encounter Details Date Type Department Care Team (Late st Contact Info) Description 03/17/2022 Orders Only [facility] [address] [place] [phone] Ajnu Ramsey CMA Routine general medical examination at [...] Office Visit [facility] [address] [place] [phone] James Schultz MD [address] [place], [place] [phone] documented as of this encounter Procedures Procedure Name Priority Date/Time Associated Diagnosis Comments THYROID PROFILE INCLUDES TSH FT4 Routine 03/16/2022 Acquired hypothyroidism CBC WITH AUTO DIFFERENTIAL Routine 03/16/2022 Routine general medical examination at a health care facility LIPID PROFILE Routine 03/16/2022 Routine general medical examination at a [facility] facility COMPREHENSIVE METABOLIC PANEL Routine 03/16/2022 Routine general medical examination at a health care facility documented in this encounter Results * Thyroid profile includes TSH FT4 (03/16/2022) 03/16/2022 Ken Rod MD LAB BLOOD ORDERABLES Final R esult Performing Organization Address [facility] de Phone Number SUNQUEST * CBC auto differential (03/16/2022) 03/16/2022 Ken Rod MD LAB BLOOD ORDERABLES Final R esult Performing Organization Address [facility] Co de Phone Number SUNQUEST * Comprehensive metabolic panel (03/16/2022) 03/16/2022 Ken Rod MD LAB BLOOD ORDERABLES Final R esult Performing Organization Address [facility] Co de Phone Number SUNQUEST * (ABNORMAL) Lipid profile (03/16/2022) External Cholesterol 248(A) <=200 [facility] External Cholesterol:Hdl 5.4(A) <=4.4 [facility]QUEST External Hdl Cholesterol 46 SUNQUEST External Ldl (Calc) 172 SUNQUEST External Triglycerides 150 SUNQUEST External Very Low Lipoprotein 30 SUNQUEST 03/16/2022 us Ken Rod MD LAB BLOOD ORDERABLES Final R esult [facility] documented in this encounter Visit Diagnoses Diagnosis Routine general medical examination at a health care facility Acquired hypothyroidism Unspecified hypothyroidism documented in this encounter Additional Health Concerns Assessment Noted Time PHQ-9 Depression Total Score: 022 1:00 PM EDT A Body Mass Index follow-up plan has been documented for the patient 09/23/2021 3:28 PM EDT documented as of this encounter Care Teams Operations Team Leader Relationship Specialty Start Date End Date James Schultz MD [address] [place] [address] PCP - General Internal Medicine 09/23/24 documented as of this encounter
--- OUTSIDE RECORDS SUMMARY | 2025-01-19 20:15 | XMS_ITS | Encounter Summary ---
Author Organization [facility] Address [address] [facility] [place] [address] Care Team Providers Care Electrical Instrument Maker Name Role Phone Andressa Alanis Lenin MAINTENANCE MECHANIC Unavailable [phone] Ken Rod MD Primary Care Provider [phone] Unallocated, Noms Provider Primary Care Provi nguyễn Encounter Details Date Type Department Care Team (Late st Contact Info) Description 01/07/2024 Orders Only [facility] Amanda Huff D[place] [place] [phone] Yadi Coreas LPN [address] [place] [address] Social History Tobacco Use Types Packs/Day Years [...] Description 01/26/2026 2:00 PM EDT Procedure Visit [facility] [address] [place] [address] Manuel Orellana DO [address] [facility] [address] [place], [place] [phone] 02/18/2026 10:45 AM EDT Office Visit [facility] [address] [place] [address] Mikel Jasso NP [address] [place], [place] [phone] documented as of this encounter Procedures Procedure Name Priority Date/Time Associated Diagnosis Comments PAP SMEAR Routine 12/26/2022 12:00 AM EDT documented in this encounter Results * Pap Smear (12/26/2022 12:00 AM EDT) Swab Cervical swab / Unknown Reyna Nurse [facility] Bcp Ob LAB CYTOLOGY ORDERABLES Final Result [facility] documented in this encounter Visit Diagnoses Not on filedocumented in this encounter Care Teams Electrical Instrument Maker Relationship Specialty Start Date End Date Andressa Alanis NP PCP - [employer] [employer] 06/11/2206/10 Ken Rod MD PCP - General Family Medicine 12/26/22 12/08/24 Unallocated, Maximilian Weinberg MD [address] [place] [address] PCP - General Family Medicine 12/09/24 documented as of this encounter
[2025-01-22 11:13] LABS: Age Gdln ACOG Testing Note (.); IGP, Aptima HPV, rfx 16/18,45 Note (.)
== END 2025-01-19 20:12 | disposition home or self-care (01) ==
LOC: LAB 20:11
PROVIDERS: PCP Family Medicine; Visit Provider Obstetrics & Gynecology
DX: Z01.419 Encounter for gynecological examination (general) (routine) without abnormal findings (principal)
CPT/HCPCS: 87624; 88175